=== PATIENT | male | born 1995 | race Two or more races ===

== ENCOUNTER 2021-02-05 13:19 | Emergency (ER) | payer MEDICAID, OTHER ==
[~2021-02-05] VITALS: Ht 172.7 cm; Wt 102.1 kg
[2021-02-05 14:37] VITALS: BP 135/76
== END 2021-02-05 15:31 | disposition home or self-care (01) ==
LOC: ER 13:19
DX: S61.411A Laceration without foreign body of right hand, initial encounter (principal); W54.0XXA Bitten by dog, initial encounter; Y93.89 Activity, other specified; Y92.89 Other specified places as the place of occurrence of the external cause; Y99.8 Other external cause status
CPT/HCPCS: 12001; 73130

== ENCOUNTER 2021-06-18 12:52 | Emergency (ER) | payer MEDICAID ==
[~2021-06-18] VITALS: Ht 172.7 cm; Wt 102.1 kg
[2021-06-18 14:28] LABS: Basophils # (auto) 0 10 ^3/uL (0-0.2); Basophils % (auto) 0.3 % (0.0-2.0); Eosinophils # (auto) 0.1 10 ^3/uL (0-0.8); Eosinophils % (auto) 0.7 % (0.0-7.0); Hematocrit 45.3 % (41.0-53.0); Hemoglobin 15.6 g/dL (13.5-17.5); Lymphocytes # (auto) 1.7 10 ^3/uL (0.4-5.4); Lymphocytes % (auto) 12.3 % (10.0-50.0); Mean Corpuscular Hemoglobin 30.6 pg (28.0-32.0); Mean Corpuscular Hgb Conc. 34.5 g/dL (32.0-36.0); Mean Corpuscular Volume 88.5 fL (80.0-100.0); Monocytes # (auto) 0.5 10 ^3/uL (0-1.3); Monocytes % (auto) 3.5 % (0.0-12.0); Neutrophils # (auto) 11.6 10 ^3/uL (1.6-8.6); Neutrophils % (auto) 83.2 % (37.0-80.0); Nucleated Red Blood Cells % 0.1 %; Red Blood Cells 5.11 10^6/uL (4.5-5.90); Red Cell Distribution Width 13.2 % (11.8-14.3); White Blood Cell 13.9 10^3/uL (4.4-10.8)
[2021-06-18 14:56] LABS: Albumin 4.5 g/dL (3.4-5.0); Calcium 9.7 mg/dL (8.5-10.1); Potassium 3.6 mmol/L (3.5-5.1)
[2021-06-18 15:01] LABS: BUN/Creatinine Ratio 8.1; Bilirubin, Total 0.7 mg/dL (0.2-1.0); Total Protein 8.7 g/dL (6.4-8.2)
[2021-06-18] MEDS ORDERED: cefTRIAXone 1GM/50ML D5W 50 ML IV ONE ×2 (16:15→17:09)
[2021-06-18] MEDS ORDERED: KETOROLAC TROMETH 30 MG/ML 1ML VIAL IV ONE (16:15)
[2021-06-18] MEDS ORDERED: SODIUM CHLORIDE 0.9% 1,000 ML IV ONE ×2 (16:15)
[2021-06-18 16:45] VITALS: BP 133/71
[2021-06-18 16:50] LABS: Alcohol, Urine < 3.0 mg/dL (0-10); Amphetamine Screen, Urine NEGATIVE (NEGATIVE); Barbiturate Scree,Urine NEGATIVE (NEGATIVE); Benzodiazephine Screen, Urine NEGATIVE (NEGATIVE); Cannabinoid Screen, Urine POSITIVE (NEGATIVE); Cocaine Screen, Urine NEGATIVE (NEGATIVE); Opiate Scree,Urine NEGATIVE (NEGATIVE); Phencyclidine Screen, Urine NEGATIVE (NEGATIVE)
[2021-06-18] MEDS ORDERED: KETOROLAC TROMETH 30 MG/ML 1ML VIAL ONE (17:14)
[2021-06-18] MEDS ORDERED: METR500T PO (18:59)
[2021-06-18] MEDS ORDERED: CEPH-509 PO (18:59)
== END 2021-06-18 19:16 | disposition home or self-care (01) ==
LOC: ER 12:52
DX: R10.84 Generalized abdominal pain (principal); R11.2 Nausea with vomiting, unspecified
CPT/HCPCS: 36415; 74176; 76870; 80053; 80307; 83690; 85025; 96361; 96365; 96375; 99284; J0696; J1885; J7030

== ENCOUNTER 2023-06-19 02:14 | Emergency (ER) | payer MEDICAID ==
[~2023-06-19] VITALS: Ht 172.7 cm; Wt 92.0 kg
[~2023-06-19 02:14] MED LIST: DICY10CA PO; LEVO500T31 PO; METO-281 PO; METR500T PO; VERA240C2 PO
[2023-06-19] MEDS: SODIUM CHLORIDE 0.9% 1,000 ML IV ONE (03:04)
[2023-06-19] MEDS: HYDROmorphone HCL 2 MG/ML VL/or syr IV ONE (03:07)
[2023-06-19] MEDS: METOCLOPRAMIDE HCL 5MG/ml INJ 2ml VIAL IV ONE (03:09)
[2023-06-19 03:11] VITALS: PULSE 106; RESP 15; O2SAT 99
== END 2023-06-19 04:07 | disposition home or self-care (01) ==
LOC: ER 02:14
DX: K29.00 Acute gastritis without bleeding (principal); F15.90 Other stimulant use, unspecified, uncomplicated; Z98.890 Other specified postprocedural states; Z79.899 Other long term (current) drug therapy
CPT/HCPCS: 96361; 96374; 96375; 99284; J1170; J2765; J7030

== ENCOUNTER 2023-07-17 23:26 | Emergency (ER) | payer MEDICAID ==
[~2023-07-17] VITALS: Ht 172.7 cm; Wt 90.9 kg
[2023-07-18 00:19] LABS: Basophils # (auto) 0 10 ^3/uL (0-0.2); Basophils % (auto) 0.2 % (0.0-2.0); Eosinophils # (auto) 0 10 ^3/uL (0-0.8); Eosinophils % (auto) 0.2 % (0.0-7.0); Hematocrit 44.9 % (41.0-53.0); Hemoglobin 15.4 g/dL (13.5-17.5); Lymphocytes # (auto) 1.6 10 ^3/uL (0.4-5.4); Lymphocytes % (auto) 10.2 % (10.0-50.0); Mean Corpuscular Hemoglobin 30.9 pg (28.0-32.0); Mean Corpuscular Hgb Conc. 34.3 g/dL (32.0-36.0); Monocytes # (auto) 0.4 10 ^3/uL (0-1.3); Monocytes % (auto) 2.2 % (0.0-12.0); Neutrophils # (auto) 13.9 10 ^3/uL (1.6-8.6); Neutrophils % (auto) 87.2 % (37.0-80.0); Nucleated Red Blood Cells % 0.2 %; Red Blood Cells 4.99 10^6/uL (4.5-5.90); Red Cell Distribution Width 13.7 % (11.8-14.3); White Blood Cell 15.9 10^3/uL (4.4-10.8)
[2023-07-18 00:27] LABS: Alanine Aminotransferase 30 U/L (7-40); Albumin 5.2 g/dL (3.2-4.8); Alkaline Phosphatase 86 U/L (46-116); Anion Gap 11 (5-15); Aspartate Aminotransferase 27 U/L (13-40); BUN/Creatinine Ratio 10.4 (10.0-20.0); Bilirubin, Total 1.2 mg/dL (0.2-1.0); Blood Urea Nitrogen 8 mg/dL (9-23); Calcium 10.2 mg/dL (8.7-10.4); Carbon Dioxide 22 mmol/L (20-30); Chloride 106 mmol/L (98-107); Glucose 123 mg/dL (74-106); Lipase 40 U/L (12-53); Sodium 139 mmol/L (136-145); Total Protein 8.4 g/dL (5.7-8.2)
[2023-07-18] MEDS ORDERED: OMEP-335 PO (01:16)
[2023-07-18] MEDS ORDERED: ZOFR4T PO (01:16)
[2023-07-18] MEDS: MORPHINE SULFATE 4 MG/ML SYR/VIAL IM ONE (01:26)
[2023-07-18] MEDS: ONDANSETRON HCL 4 MG/2 ML VIAL IM ONE (01:26)
[2023-07-18] MEDS: POTASSIUM CHL 20 Meq TABLET PO ONE (01:27)
[2023-07-18 01:37] VITALS: BP 142/83; PULSE 108; RESP 18; TEMP 98.9; O2SAT 99
== END 2023-07-18 01:37 | disposition home or self-care (01) ==
LOC: ER 23:26
DX: K29.70 Gastritis, unspecified, without bleeding (principal); F12.10 Cannabis abuse, uncomplicated; Z90.49 Acquired absence of other specified parts of digestive tract
CPT/HCPCS: 36415; 74176; 80053; 83690; 85025; 96372; 99285; J2270; J2405

== ENCOUNTER 2024-06-12 15:54 | Inpatient (IN) | payer MEDICAID ==
[~2024-06-12] VITALS: Ht 172.7 cm; Wt 109.0 kg
[~2024-06-12 15:54] MED LIST changes: +ACET300T51 PO; +BUPR1DIS TD; +LIDO1PAD55 TOP; +OMEP-335 PO; +ZOFR4T PO
--- NOTE | 2024-06-12 16:05 | ED.PDOC ---
History of Present Illness HPI Comments 29-year-old male brought by paramedics from home because of abdominal pain nausea vomiting for the past few days. He has a history of similar symptoms in the past. Last episode was two months ago. Patient did have gallbladder surgery five years ago ever since then he has been having these symptoms. He has had endoscope with no definitive diagnosis. He does have a history of scoliosis for which he takes pain medication. Denies use of drugs. Denies any other symptoms. Time Seen by MD: 16:00 Primary Care Provider: ARLEEN Reviewed Notes: Nurses Notes, Medications, Allergies Allergies: Coded Allergies: NO KNOWN ALLERGIES (Unverified , 02/05/21) Home Meds Active Scripts Ondansetron Odt 4MG Tab (ZOFRAN PO) 4 Mg Tb, 4 MG PO Q6HPRN PRN, #30 TAB ODT TAB-DISSOLVE IN MOUTH, THEN SWALLOW Prov:ZACHARY SANTANA PAC 07/18/23 Omeprazole (Omeprazole) 20 Mg Tab, 20 MG PO DAILY, #30 TAB Prov:ZACHARY SANTANA PAC 07/18/23 Dicyclomine Hcl (BENTYL CAPSULE) 10 Mg Cp, 2 CAP PO Q6HPRN PRN, #30 CAP 3 Refills Prov:TRE MERRITT DO 06/18/23 Metoclopramide Hcl (Reglan) 10 Mg Tab, 10 MG PO Q6HPRN PRN, #20 TAB Prov:TRE MERRITT DO 06/18/23 Levofloxacin (Levaquin) 500 Mg Tab, 500 MG PO DAILY for 14 Days, #14 TAB Prov:LASHONDA PLUMMER MD 08/11/22 Metronidazole (Flagyl) 500 Mg Tab, 500 MG PO TID for 14 Days, #42 TAB Prov:LASHONDA PLUMMER MD 08/11/22 Reported Medications Verapamil Hcl (Verapamil Hcl Er) 240 Mg Cap, 1 CAP PO DAILY 08/10/22 Information Source: Patient, Emergency Med Personnel Mode of Arrival: EMS Severity: Moderate Timing: Days Duration: Since onset Past Medical History PAST MEDICAL HISTORY: Denies Surgical History: Cholecystectomy Family History Family History: Reviewed,noncontributory to illness Social History Smoker: Non-Smoker Alcohol: Denies ETOH Use Drugs: Marijuana Lives In: Home Constitutional: denies: chills, diaphoresis, fatigue, fever, malaise, sweats, weakness, others EENTM: denies: blurred vision, double vision, ear bleeding, ear discharge, ear drainage, ear pain, ear ringing, eye pain, eye redness, hearing loss, mouth pain, mouth swelling, nasal discharge, nose bleeding, nose congestion, nose pain, photophobia, tearing, throat pain, throat swelling, voice changes, others Respiratory: denies: cough, hemoptysis, orthopnea, SOB at rest, shortness of breath, SOB with excertion, stridor, wheezing, others Cardiovascular: denies: chest pain, dizzy spells, diaphoresis, Dyspnea on exertion, edema, irregular heart beat, left arm pain, lightheadedness, palpitations, PND, syncope, others Gastrointestinal: reports: abdominal pain, nausea, vomiting; denies: abdomen distended, blood streaked bowels, constipated, diarrhea, dysphagia, difficulty swallowing, hematemesis, melena, poor appetite, poor fluid intake, rectal bleeding, rectal pain, others Genitourinary: denies: burning, dysuria, flank pain, frequency, hematuria, incontinence, penile discharge, penile sore, pain, testicle pain, testicle swelling, urgency, others Neurological: denies: dizziness, fainting, headache, left sided numbness, left sided weakness, numbness, paresthesia, pre-existing deficit, right sided numbness, right sided weakness, seizure, speech problems, tingling, tremors, weakness, others Musculoskeletal: denies: back pain, gout, joint pain, joint swelling, muscle pain, muscle stiffness, neck pain, others Integumetry: denies: bruises, change in color, change in hair/nails, dryness, laceration, lesions, lumps, rash, wounds, others Allergic/Immunocompromised: denies: Difficulty Healing, Frequent Infections, Hives, Itching, others Hematologic/Lymphatic: denies: anemia, blood clots, easy bleeding, easy bruising, swollen glands, others Endocrine: denies: excessive hunger, excessive sweating, excessive thirst, excessive urination, flushing, intolerance to cold, intolerance to heat, unexplained weight gain, unexplained weight loss, others Psychiatric: denies: anxiety, bipolar disorder, depression, hopeless, panic disorder, schizophrenia, sleepless, suicidal, others Physical Exam General Appearance: Moderate Distress HEENT: Normal ENT Inspection, Pharynx Normal, TMs Normal Neck: Full Range of Motion, Non-Tender, Normal, Normal Inspection Respiratory: Chest Non-Tender, Lungs Clear, No Accessory Muscle Use, No Respiratory Distress, Normal Breath Sounds Cardiovascular: No Edema, No JVD, No Murmur, No Gallop, Normal Peripheral Pulses, Regular Rate/Rhythm Breast Exam: Deferred Gastrointestinal: No Organomegaly, Non Tender, No Pulsatile Mass, Normal Bowel Sounds, Soft Genitalia: Deferred Pelvic: Deferred Rectal: Deferred Extremities: No calf tenderness, Normal capillary refill, Normal inspection, Normal range of motion, Non-tender, No pedal edema Musculoskeletal : Apperance: Normal Neurologic: Alert, cripple chaser II-XII nml as Tested, No Motor Deficits, Normal Affect, Normal Mood, No Sensory Deficits Cerebellar Function: NOT DONE Reflexes: NOT DONE Skin: Dry, Normal Color, Warm Peripheral Pulses: 3+ Radial (R), 3+ Radial (L) Lymphatic: No Adenopathy Was a procedure done? Was a procedure done?: No Differential Dx Considerations may include: Gastritis Electrolyte imbalance X-Ray, Labs, Meds, VS Vital Signs Date Time Temp Pulse Resp B/P (MAP) Pulse Ox O2 Delivery O2 Flow Rate FiO2 06/12/24 16:09 98.6 110 20 119/78 (92) 99 98.6 Lab Test 06/12/24 16:29 Range/Units White Blood Count 15.9 H 4.4-10.8 10^3/uL Red Blood Count 5.89 4.5-5.90 10^6/uL Hemoglobin 17.8 H 13.5-17.5 g/dL Hematocrit 51.8 41.0-53.0 % Mean Corpuscular Volume 87.8 80.0-100.0 fL Mean Corpuscular Hemoglobin 30.2 28.0-32.0 pg Mean Corpuscular Hemoglobin Concent 34.4 32.0-36.0 g/dL Red Cell Distribution Width 13.6 11.8-14.3 % Platelet Count 323 140-450 10^3/uL Mean Platelet Volume 10.2 6.9-10.8 fL Neutrophils (%) (Auto) 79.5 37.0-80.0 % Lymphocytes (%) (Auto) 14.7 10.0-50.0 % Monocytes (%) (Auto) 5.1 0.0-12.0 % Eosinophils (%) (Auto) 0.1 0.0-7.0 % Basophils (%) (Auto) 0.6 0.0-2.0 % Neutrophils # (Auto) 12.6 H 1.6-8.6 10 ^3/uL Lymphocytes # (Auto) 2.3 0.4-5.4 10 ^3/uL Monocytes # (Auto) 0.8 0-1.3 10 ^3/uL Eosinophils # (Auto) 0 0-0.8 10 ^3/uL Basophils # (Auto) 0.1 0-0.2 10 ^3/uL Nucleated Red Blood Cells 0.4 % Sodium Level 143 136-145 mmol/L Potassium Level 3.5 3.5-5.1 mmol/L Chloride Level 107 98-107 mmol/L Carbon Dioxide Level 19 L 20-31 mmol/L Anion Gap 17 H 5-15 Blood Urea Nitrogen 11 9-23 mg/dL Creatinine 1.35 H 0.700-1.30 mg/dL Glomerular Filtration Rate Calc 74 >90 mL/min BUN/Creatinine Ratio 8.1 L 10.0-20.0 Serum Glucose 159 H 74-106 mg/dL Calcium Level 11.4 H 8.7-10.4 mg/dL Patient alert. Complaining of abdominal pain nausea vomiting. Vitals stable. Answering questions. Continues to have vomiting. Establish intravenous access. Establish intravenous access. Was given fluids. Was given morphine. Was given Zofran. Reviewed his previous visit. Explained to the patient. Continue cardiac monitoring. Time of 1ST Reevaluation: 16:03 Reevaluation 1ST: Unchanged Patient Education/Counseling: Diagnosis, Treatment, Prognosis Family Education/Counseling: No Family Present Departure 1 Departure Time of Disposition: 16:05 Impression: Primary Impression: Intractable nausea and vomiting Additional Impressions: Hypercalcemia Uncontrolled diabetes mellitus Qualified Codes: E13.65 - Other specified diabetes mellitus with hyperglycemia Gastritis Qualified Codes: K29.00 - Acute gastritis without bleeding Disposition: ADMITTED INPATIENT Admit to: Med Surg Condition: Guarded Critical Care Note Critical Care Time?: No Stability Stability form required: No Heart Score Heart Score: Heart Score Response (Comments) Value History N/A 0 EKG N/A 0 Age N/A 0 Risk Factors N/A 0 Troponin N/A 0 Total 0 JAM SCOTT MD Jun 12, 2024 16:05
[2024-06-12 16:43] LABS: Basophils # (auto) 0.1 10 ^3/uL (0-0.2); Basophils % (auto) 0.6 % (0.0-2.0); Eosinophils # (auto) 0 10 ^3/uL (0-0.8); Eosinophils % (auto) 0.1 % (0.0-7.0); Hematocrit 51.8 % (41.0-53.0); Hemoglobin 17.8 g/dL (13.5-17.5); Lymphocytes # (auto) 2.3 10 ^3/uL (0.4-5.4); Lymphocytes % (auto) 14.7 % (10.0-50.0); Mean Corpuscular Hemoglobin 30.2 pg (28.0-32.0); Mean Corpuscular Hgb Conc. 34.4 g/dL (32.0-36.0); Mean Corpuscular Volume 87.8 fL (80.0-100.0); Monocytes # (auto) 0.8 10 ^3/uL (0-1.3); Monocytes % (auto) 5.1 % (0.0-12.0); Neutrophils # (auto) 12.6 10 ^3/uL (1.6-8.6); Neutrophils % (auto) 79.5 % (37.0-80.0); Nucleated Red Blood Cells % 0.4 %; Platelet Count (auto) 323 10^3/uL (140-450); Red Blood Cells 5.89 10^6/uL (4.5-5.90); Red Cell Distribution Width 13.6 % (11.8-14.3); White Blood Cell 15.9 10^3/uL (4.4-10.8)
[2024-06-12 16:56] LABS: Chloride 107 mmol/L (98-107); Sodium 143 mmol/L (136-145)
[2024-06-12 17:02] LABS: Potassium 3.5 mmol/L (3.5-5.1)
[2024-06-12 17:03] LABS: Anion Gap 17 (5-15); BUN/Creatinine Ratio 8.1 (10.0-20.0); Blood Urea Nitrogen 11 mg/dL (9-23); Calcium 11.4 mg/dL (8.7-10.4); Carbon Dioxide 19 mmol/L (20-31); Glucose 159 mg/dL (74-106)
[2024-06-12 17:20] VITALS: PULSE 122; RESP 20; O2SAT 97
[2024-06-12] MEDS: PANTOPRAZOLE 40 MG/10 ML VIAL INJ IV ONE (17:33)
[2024-06-12] MEDS: MORPHINE SULFATE 4 MG/ML SYR/VIAL IV ONE (17:34)
[2024-06-12] MEDS: ONDANSETRON HCL 4 MG/2 ML VIAL IV ONE (17:34)
[2024-06-12] MEDS: SODIUM CHLORIDE 0.9% 1,000 ML IV ONE ×3 (17:48→22:30)
[2024-06-12] MEDS: cefTRIAXone 1GM/50ML D5W 50 ML IV ONE ×2 (17:48→22:40)
[2024-06-12] MEDS: metroNIDAZOLE 500MG/100ML 100 ML IV ONE ×2 (18:23→23:10)
[2024-06-12] MEDS: SODIUM CHLORIDE 0.9% 1,000 ML IVB ONE (18:28)
--- NOTE | 2024-06-12 18:35 | DVH ---
Exam: CT CT AB PEL WO CON-NO ORAL OR IV History: gastritis Comparison Study: None available at time of dictation. TECHNIQUE: Multidetector CT of the abdomen was performed from lung bases to pubic symphysis. Imaging was performed without IV contrast. Axial, coronal and sagittal multiplanar reformats were obtained fr om the axial data set by the technologist. Radiation Dose Information: CT Dose: CTDI volume is 22.59 mGy. Dose-length product is 1164.33 mGy*cm FINDINGS: Evaluation of solid organs is limited due to lack of intravenous contrast use. Findings: Lung Bases: No acute or significant lung base finding. Normal heart size. No pleural or pericardial effusion. Liver: The liver is normal in size. No focal lesions. Gallbladder and Biliary Tree: Gallbladder has been surgically removed. Spleen: Unremarkable Pancreas: The pancreas is grossly normal in appearance. Adrenal Glands: Unremarkable Kidneys: Kidneys are grossly normal without calculi or hydronephrosis. Bladder: Grossly unremarkable for degree of distention. Bowel: The stomach is grossly normal in appearance. Small bowel and colon are normal in caliber and d istribution. The appendix is not visualized; however, no secondary findings of acute appendicitis id entified. Ascites: Absent Lymphadenopathy: No mesenteric, retroperitoneal or periportal lymphadenopathy. Abdominal Wall and Mesentery: Unremarkable. Vasculature: The visualized abdominal aorta is normal in size and caliber. Evaluation of abdominal a nd pelvic vessels is limited due to lack of intravenous contrast. Pelvic Organs: Unremarkable Musculoskeletal: No aggressive focal bony lesions, acute fractures or dislocation. Soft tissues: Unremarkable IMPRESSION: 1. Fluid in the stomach with no indication of gastric wall thickening. 2. No findings of bowel obstruction 3. Gallbladder has been surgically removed. 4. No nephrolithiasis or hydronephrosis. Radiation optimization: All CT scans at this facility use at least one of these dose optimization te chniques: automated exposure control mA and/or kV adjustment per patient size (includes targeted exa ms where dose is matched to clinical indication) or iterative reconstruction.
[2024-06-12] MEDS: ACETAMINOPHEN IV 1000 MG/100ML (10MG/ML) IV ONE (20:08)
[2024-06-12] MEDS: SODIUM CHLORIDE 0.9% 3,000 ML IV ONE (20:08)
[2024-06-12] MEDS ORDERED: HYDROcodone-ACET 5/325MG TAB PO PRN (22:00)
[2024-06-12] MEDS ORDERED: MORPHINE SULFATE INJ 2 MG/ml SYRG IV PRN (22:00)
[2024-06-12] MEDS ORDERED: ACETAMINOPHEN 325 MG TAB PO PRN (22:00)
--- NOTE | 2024-06-12 22:16 | DVHHPRES ---
History of Present Illness Resident Creating Document: SOHEILA ALAMO RESDIENT History of Present Illness This is a 29-year-old male with past medical history of cholelithiasis (status post cholecystectomy, 6 years back) came to the hospital due to abdominal pain. Per patient he has intermitted abdominal pain since cholecystectomy every few months, worsened by taking yogurt. Three days back after taking yogurt patient developed epigastric pain, 7/10, constant and stabbing in nature. He also reports nausea, vomiting, bloating, diarrhea and fever. He denies chest pain, dysuria, any recent sick contacts or unusual food intake. PMHx: Cholelithiasis status post cholecystectomy, scoliosis and cluster headache PSHx: Cholecystectomy Family history: Noncontributory Social history: Denies smoking or any other drug use. Home medication: Sucralfate, lidocaine patch, codeine, Tylenol and verapamil Allergic history: No known allergy Review of Systems Review of Systems General: Reports fever HEENT: No headaches, visiual changes, hearing loss, tinnitus, nasal congestion and discharge, and sore throat. Cardiovascular: Denies chest pain, palpitations, dyspnea on exertion, orthopnea, or claudication. Respiratory: No cough, and wheezing. Gastrointestinal: Reports nausea, vomiting, and abdominal pain Genitourinary: No dysuria, hematuria, discharge, frequency, urgency, nocturia, incontinence, and urinary retention. Endocrine: No heat or cold intolerance, polydipsia, polyuria, and polyphagia. Neurological: No dizziness, extremity weakness and numbness, tremors, gait disturbance, seizures, and memory impairment. Psychiatric: Denies depression, anxiety,or insomnia. Musculoskeletal: Denies neck pain, stiffness and swelling, back pain, muscle weakness, joint pain, stiffness, swelling, or limited range of motion. Skin: No rashes, itching, skin lesion, changes in hair, nail, skin texture and breast. Hematologic/Lymphatic: Denies easy bruising, bleeding tendencies, or lymph node enlargement. Allergies: Coded Allergies: NO KNOWN ALLERGIES (Unverified , 02/05/21) Medications Current Medications Medications Dose Ordered Sig/Makeda Route Start Time Stop Time Status Last Admin Dose Admin Acetaminophen 650 mg Q6HP PRN PO 06/12/24 22:00 UNV Acetaminophen/ Hydrocodone Bitart 1 tab Q4HP PRN PO 06/12/24 22:00 UNV Ondansetron HCl 4 mg Q4HP PRN IV 06/12/24 22:00 UNV Morphine Sulfate 2 mg Q4HPRN PRN IV 06/12/24 22:00 UNV Enoxaparin Sodium 40 mg DAILY SC 06/13/24 10:00 UNV Sucralfate 1 gm TID@0600,1130,2200 PO 06/12/24 22:00 UNV Metronidazole 100 ml @ 100 mls/hr Q8HR IV 06/12/24 22:00 UNV Ceftriaxone Sodium 50 ml @ 100 mls/hr DAILY@09 IV 06/13/24 09:00 UNV Exam Vital Signs Vital Signs Date Time Temp Pulse Resp B/P (MAP) Pulse Ox O2 Delivery O2 Flow Rate FiO2 06/12/24 22:00 98.8 97 18 144/84 (104) 98 98.8 06/12/24 20:10 Room Air* 0 21 Exam General Appearance: Alert, Oriented X3, Cooperative, No acute distress HEENT: Atraumatic, PERRLA, EOMI, Mucous membrane moist/pink Respiratory: Clear to auscultation, Normal air movement Cardiovascular: Regular rate, Normal S1, Normal S2, No murmurs, no chest wall tenderness Abdominal: Mild abdominal tenderness Extremities: No clubbing, No cyanosis, No edema, Normal pulses, No tenderness/ swelling Skin: No rashes, No breakdown, No significant lesion Neuro: Normal gait, Normal speech, Strength at 5/5 X4 ext, Normal tone, Sensation intact, Cranial nerves 3-12 NL, Reflexes 2+ Psych/Mental Status: Mental status NL, Mood NL Labs/Xrays Labs Test 06/12/24 19:40 06/12/24 16:29 Range/Units Lactic Acid Level 1.9 0.4-2.0 mmol/L White Blood Count 15.9 H 4.4-10.8 10^3/uL Red Blood Count 5.89 4.5-5.90 10^6/uL Hemoglobin 17.8 H 13.5-17.5 g/dL Hematocrit 51.8 41.0-53.0 % Mean Corpuscular Volume 87.8 80.0-100.0 fL Mean Corpuscular Hemoglobin 30.2 28.0-32.0 pg Mean Corpuscular Hemoglobin Concent 34.4 32.0-36.0 g/dL Red Cell Distribution Width 13.6 11.8-14.3 % Platelet Count 323 140-450 10^3/uL Mean Platelet Volume 10.2 6.9-10.8 fL Neutrophils (%) (Auto) 79.5 37.0-80.0 % Lymphocytes (%) (Auto) 14.7 10.0-50.0 % Monocytes (%) (Auto) 5.1 0.0-12.0 % Eosinophils (%) (Auto) 0.1 0.0-7.0 % Basophils (%) (Auto) 0.6 0.0-2.0 % Neutrophils # (Auto) 12.6 H 1.6-8.6 10 ^3/uL Lymphocytes # (Auto) 2.3 0.4-5.4 10 ^3/uL Monocytes # (Auto) 0.8 0-1.3 10 ^3/uL Eosinophils # (Auto) 0 0-0.8 10 ^3/uL Basophils # (Auto) 0.1 0-0.2 10 ^3/uL Nucleated Red Blood Cells 0.4 % Sodium Level 143 136-145 mmol/L Potassium Level 3.5 3.5-5.1 mmol/L Chloride Level 107 98-107 mmol/L Carbon Dioxide Level 19 L 20-31 mmol/L Anion Gap 17 H 5-15 Blood Urea Nitrogen 11 9-23 mg/dL Creatinine 1.35 H 0.700-1.30 mg/dL Glomerular Filtration Rate Calc 74 >90 mL/min BUN/Creatinine Ratio 8.1 L 10.0-20.0 Serum Glucose 159 H 74-106 mg/dL Calcium Level 11.4 H 8.7-10.4 mg/dL Assessment/Plan Assessment/Plan Abdominal pain, likely due to post cholecystectomy syndrome/lactose intolerance/hypercalcemia SIRS positive NSTEMI, likely type [address] scan shows post cholecystectomy changes NPO Pain control IV fluid LATOSHA, likely VMN Hypercalcemia, likely due to hyperparathyroidism Hyperparathyroidism, likely primary IV fluid DIET: NPO DVT PROPHYLAXIS: Lovenox GI PROPHYLAXIS:: Protonix CODE STATUS: Goal of care discussed for more than 17 minutes, full code DISPOSITION: Med/surge Patient's status and plan discussed with the patient. Case discussed with Dr. Adames. Plan discussed with: Patient, Other (RN) My Orders Orders - TARAS ALAMOCATHERINE RESDIENT Procedure Category Date Status Time Admit ADMIT 06/12/24 Transmitted 21:55 Code Status CODE 06/12/24 Transmitted 21:55 Vital Signs MARY 06/12/24 In Process 21:55 Review Orders With MARY 06/12/24 In Process Adm. 21:55 Acetaminophen Tablet PHA 06/12/24 Logged (Tylenol Tablet) 22:00 Notify Of Changes [facility] 06/12/24 In Process From Base 21:55 Advance Directive MARY 06/12/24 In Process 21:55 Urinalysis LAB 06/12/24 Logged 21:55 Lipid Panel LAB 06/12/24 Logged 21:55 Patient Condition ORDERS 06/12/24 Transmitted 21:55 Allergies MARY 06/12/24 In Process 21:55 Hydrocodone-Acet PHA 06/12/24 Logged 5/325mg Tab ([place] 22:00 Ondansetron Hcl PHA 06/12/24 Logged (Zofran) 22:00 Hemoglobin A1c LAB 06/12/24 Logged 21:55 Morphine Sulfate PHA 06/12/24 Logged Injection 22:00 Enoxaparin Sodium PHA 06/13/24 Logged (Lovenox) 10:00 Stat Ekg For Chest [facility] 06/12/24 In Process Pain 21:55 Notify Of Changes [facility] 06/12/24 In Process From Base 21:55 Hepatic Panel LAB 06/12/24 Logged 21:55 Hiv 1&2 Antibody LAB 06/12/24 Logged 21:55 Parathyroid Hormone LAB 06/12/24 Logged Intact 21:55 Vitamin D, 25-Hydroxy LAB 06/12/24 Logged 21:55 Vitamin B12 LAB 06/12/24 Logged 21:55 Urine Sodium LAB 06/12/24 Logged 21:55 Urine LAB 06/12/24 Logged Protein/Creatinine Urine Creatinine LAB 06/12/24 Logged 21:55 Drug Screen LAB 06/12/24 Logged 21:55 Stool Bacterial [facility]OGER 06/12/24 Logged Culture 21:55 Stool Wbc LAB 06/12/24 Logged 21:55 Clostridium Difficile [facility]OGER 06/12/24 Logged Toxin 21:55 Comprehensive LAB 06/13/24 Verified Metabolic Panel 04:00 Complete Blood Count LAB 06/13/24 Verified 04:00 PTPTT LAB 3/20/25 Verified 04:00 Sucralfate Susp PHA 06/12/24 Logged (Carafate Susp) 22:00 Sucralfate Susp PHA 06/12/24 Logged (Carafate Susp) 22:00 Metronidazole PHA 06/12/24 Logged 500mg/100ml (Flagyl 22:00 Metronidazole PHA 06/12/24 Logged 500mg/100ml (Flagyl 22:00 Ceftriaxone 1gm/50ml PHA 06/12/24 Logged D5w (Rocephin) 22:00 Ceftriaxone 1gm/50ml PHA 06/13/24 Logged D5w (Rocephin) 09:00 Sodium Chloride 0.9% PHA 06/12/24 Logged 22:00 Sodium Chloride 0.9% PHA 06/12/24 Logged 22:00 Npo Except For MARY 06/12/24 In Process Medications 22:14 Ova & Parasite Exam ROGER 06/12/24 Logged 22:15 Date of Service: Jun 12, 2024 Billing Provider: LASHONDA ADAMES MD Common Visit Codes: [id number] INP/OBS CARE (HIGH) SOHEILA ALAMO RESDIENT Jun 12, 2024 22:16 LASHONDA ADAMES MD Jun 13, 2024 11:07
[2024-06-12] MEDS: SUCRALFATE 1 GM/10 ML ORAL SUSP PO ONE (22:25)
[2024-06-12] MEDS: ONDANSETRON HCL 4 MG/2 ML VIAL IV PRN (22:42)
[2024-06-12 22:54] LABS: Albumin 4.7 g/dL (3.2-4.8); Bilirubin, Total 0.9 mg/dL (0.2-1.0); Total Protein 7.9 g/dL (5.7-8.2)
[2024-06-12 23:05] LABS: Bilirubin, Direct 0.4 mg/dL (<0.3)
[2024-06-13] VITALS (9 sets, daily range): BP systolic 103–148; BP diastolic 55–94; PULSE 74–103; RESP 16–18; TEMP 98.2–99.5; O2SAT 96–98
--- NOTE | 2024-06-13 00:37 | DVH ---
INDICATION: Cholidocolythiasis TECHNIQUE: Multiple real-time sonographic images of the abdomen were obtained. COMPARISON: US ABDOMEN LIMITED on DOS: 08/10/22 FINDINGS: Liver is normal in size and echogenicity measuring approximately 15 cm. No focal lesion is identified . No intrahepatic biliary ductal dilatation noted. Gallbladder has been removed. Common bile duct measures approximately 7 mm proximally, within normal limits post cholecystectomy. Right kidney measures 11.6 cm and demonstrates no abnormality. No hydronephrosis. Pancreas is obscured by overlying bowel gas. No fluid collection noted. IMPRESSION: Cholecystectomy. No definite abnormality identified.
[2024-06-13] MEDS ORDERED: BUPR20DI TD (05:40)
[2024-06-13] MEDS: metroNIDAZOLE 500MG/100ML 100 ML IV SCH (05:47)
[2024-06-13] MEDS: SUCRALFATE 1 GM/10 ML ORAL SUSP PO SCH ×2 (05:54→11:21)
[2024-06-13 07:06] LABS: Basophils # (auto) 0 10 ^3/uL (0-0.2); Basophils % (auto) 0.2 % (0.0-2.0); Eosinophils # (auto) 0 10 ^3/uL (0-0.8); Eosinophils % (auto) 0.2 % (0.0-7.0); Hematocrit 37.2 % (41.0-53.0); Hemoglobin 13.2 g/dL (13.5-17.5); Lymphocytes # (auto) 3.3 10 ^3/uL (0.4-5.4); Lymphocytes % (auto) 21.2 % (10.0-50.0); Mean Corpuscular Hemoglobin 31.2 pg (28.0-32.0); Mean Corpuscular Hgb Conc. 35.4 g/dL (32.0-36.0); Mean Corpuscular Volume 88.4 fL (80.0-100.0); Monocytes # (auto) 1.3 10 ^3/uL (0-1.3); Monocytes % (auto) 8.3 % (0.0-12.0); Neutrophils # (auto) 10.9 10 ^3/uL (1.6-8.6); Neutrophils % (auto) 70.1 % (37.0-80.0); Platelet Count (auto) 215 10^3/uL (140-450); Red Blood Cells 4.21 10^6/uL (4.5-5.90); Red Cell Distribution Width 13.6 % (11.8-14.3); White Blood Cell 15.6 10^3/uL (4.4-10.8)
--- NOTE | 2024-06-13 07:15 | ECG ---
[facility] Test Date: 2024-06-13 Test Time: 00:17:41 Pat Name: LON DONG Department: ER Room: 0206 A Gender: M It Auditor: ER : 1995 Requested By: SOHEILA ALAMO Order Number: [id number] Reading MD: Chris Eid Measurements Intervals Loman Rate: 82 P: 27 ID: [id number] QRS: 89 QRSD: 94 T: -23 QT: 396 QTc: 463 Interpretive Statements Sinus rhythm Nonspecific T abnormalities, inferior leads Electronically Signed On 06-15-2024 17:32:16 PDT by Chris Eid Please click the below link to view image of tracing.
[2024-06-13 07:26] LABS: INR 1.09 (0.9-1.15); Partial Thromboplastin Time 30.4 SEC (24.5-34.5); Prothrombin Time 11.5 sec (9.3-11.8)
[2024-06-13 07:32] LABS: Albumin 4.3 g/dL (3.2-4.8); Alkaline Phosphatase 71 U/L (46-116); Anion Gap 9 (5-15); Aspartate Aminotransferase 37 U/L (13-40); BUN/Creatinine Ratio 10.6 (10.0-20.0); Blood Urea Nitrogen 10 mg/dL (9-23); Calcium 8.9 mg/dL (8.7-10.4); Carbon Dioxide 24 mmol/L (20-31); Total Protein 7.2 g/dL (5.7-8.2)
[2024-06-13 07:33] LABS: Alanine Aminotransferase 65 U/L (7-40); Bilirubin, Total 0.9 mg/dL (0.2-1.0); Chloride 114 mmol/L (98-107); Glucose 108 mg/dL (74-106); Potassium 3.5 mmol/L (3.5-5.1); Sodium 147 mmol/L (136-145)
[2024-06-13 10:22] LABS: Hepatitis B Surface Antigen Negative (Negative); Hepatitis C Antibody Negative (Negative)
[2024-06-13] MEDS: ENOXAPARIN SOD 40 MG/0.4 ML SYRINGE SC SCH (10:22)
[2024-06-13] MEDS: PANTOPRAZOLE 40 MG/10 ML VIAL INJ IV SCH (10:22)
[2024-06-13 11:39] LABS: Hematocrit 42.7 % (41.0-53.0); Hemoglobin 14.6 g/dL (13.5-17.5)
[2024-06-13] MEDS ORDERED: MORPHINE SULFATE INJ 2 MG/ml SYRG IV PRN (12:30)
--- NOTE | 2024-06-13 13:03 | DVHPNRES ---
Progress Note Date Seen: Jun 13, 2024 Resident Creating Document: JHChesterJLISA OmalleyCHINO RESIDENT Medical Necessity Reason Pt with a Central, PICC or Fol: No Subjective Review of Systems Patient is a 29-year-old male with a past medical history of cholecystitis status post cholecystectomy 6 years ago presented to the ED with a chief complaint of intractable vomiting for 3 days prior to presentation. Patient reports that about 3 days ago he had smoothie with yogurt following which he started to have emesis multiple episodes, few episodes associated with blebs of blood and patient reported he is not able to keep anything down. Patient reports that since the cholecystectomy he has had episodes of abdominal pain associated with symptoms of dyspepsia like early satiety and bloating and about 2 years ago he had evaluation done at the [facility] with upper endoscopy and colonoscopy which apparently did not show anything. About 1 year ago patient was prescribed sucralfate which apparently improved the symptoms but he ran out of it. Patient denied fever or chills, diarrhea or constipation. Patient does not report any episode of melena or hematochezia. Past medical history: ? GERD, cluster headaches Past surgical history: Cholecystectomy Social history: Patient denies smoking or any other drug use Home medications: Verapamil for prevention of cluster headaches Review of systems Patient seen and examined at the bedside In the morning patient had 1 episode of emesis followed by epigastric abdominal pain. Reported moderate headache Denies shortness of breath, chest pain, palpitations. Objective vital signs Vital Sign Date Time Temp Pulse Resp B/P (MAP) Pulse Ox O2 Delivery O2 Flow Rate FiO2 06/13/24 08:30 99.0 82 16 103/55 (71) 96 99.0 06/13/24 08:00 Room Air* 0 21 Total Intake and Output 06/12/24 06/12/24 06/13/24 15:00 23:00 07:00 Intake Total 4250 ml 250 ml Output Total 0 ml Balance 4250 ml 250 ml medications Current Medications Medications Dose Ordered Sig/Makeda Route Start Time Stop Time Status Last Admin Dose Admin Acetaminophen 650 mg Q6HP PRN PO 06/12/24 22:00 Ondansetron HCl 4 mg Q4HP PRN IV 06/12/24 22:00 06/13/24 10:22 4 MG Enoxaparin Sodium 40 mg DAILY SC 06/13/24 10:00 06/13/24 10:22 40 MG Sucralfate 1 gm ACHS PO 06/13/24 11:30 06/13/24 11:21 1 GM Pantoprazole Sodium 40 mg BID IV 06/13/24 10:00 06/13/24 10:22 40 MG Ceftriaxone Sodium 50 ml @ 100 mls/hr DAILY@09 IV 06/13/24 20:00 Morphine Sulfate 2 mg Q6HPRN PRN IV 06/13/24 11:15 Morphine Sulfate 2 mg Q6HPRN PRN IV 06/13/24 12:30 UNV Examination Constitution: Patient was alert and oriented to time place and person appears to [id number] distress because of abdominal pain and intractable emesis Gen - no pallor, no icterus, no cyanosis, no clubbing, no LAD, no edema . Skin - Patients skin is warm and dry. HEENT - normocephalic, atraumatic, moist mucous membranes. Neck - full ROM, no LAD Pulmonary - B/L vesicular breath sounds. no crackles , no wheezing, no stridor. cardiovascular - normal S1,S2 heard. no murmurs heard. peripheral pulses normal radial 2+, pedal 2+. GI - soft abdomen with mild diffuse tenderness to palpation. no hepatospleenomegaly. Bowel sounds normoactive Neurological - Bilateral upper extremity strength 5/5, bilateral lower extremity strength 5/5, no facial droop, normal speech, no tremor, no sensory deficiets. laboratory and microbiology Laboratory Tests 06/13/24 11:26 06/13/24 06:39 Test 06/13/24 06:39 Range/Units Serum Glucose 108 H 74-106 mg/dL Problem List/Assessment/Plan Problem List/Assessment/Plan # Acute intractable vomiting # Acute intractable abdominal pain # Dyspepsia # ? hematemesis ? Upper GI bleed # Suspected acute gastroenteritis ?Bacillus Cereus # SIRS positive - CT abdomen pelvis without contrast shows IMPRESSION: 1. Fluid in the stomach with no indication of gastric wall thickening. 2. No findings of bowel obstruction 3. Gallbladder has been surgically removed. - IV fluids for rehydration - ondansetron - ceftriaxone 1 g daily - Protonix 40 mg b.i.d. IV - sucralfate 1 g ACHS # LATOSHA likely hemodynamically mediated due to VMN - given IV fluids - resolved # NSTEMI likely type 2 d/t demand supply mismatch - ECG showed sinus rhythm with no ST segment or T wave abnormalities - continue monitoring Goals of care discussed with the patient for over 23 minutes. Full code Plan discussed with Plan discussed with: Patient My Orders My Orders Orders - ANAYELI CARIAS Procedure Category Date Status Time Sucralfate Susp PHA 06/13/24 In Process (Carafate Susp) 11:30 Pantoprazole PHA 06/13/24 In Process (Protonix) 10:00 Npo Except Ice Chips ORDERS 06/13/24 Transmitted 11:06 Ceftriaxone 1gm/50ml PHA 06/13/24 In Process D5w (Rocephin) 20:00 Morphine Sulfate PHA 06/13/24 In Process Injection 11:15 Morphine Sulfate PHA 06/13/24 Logged Injection 12:30 Dietary Evaluation Review Comments: 1. Consider vit D supplements. 2. If NPO>7 days, and GI not accessible, TPN per pharmacy. 3. Offer a regular diet as tolerated when pt is able to keep food down. Expected Outcomes/Goals: Nutrition support to meet 75% of his energy needs. Improved physical strength. Date of Service: Jun 13, 2024 Billing Provider: KIM ROBLEDO MD Common Visit Codes: [id number] INP/OBS CARE(HIGH) ANAYELI CARIAS RESIDENT Jun 13, 2024 13:03 KIM ROBLEDO MD Jun 13, 2024 15:52
[2024-06-13] MEDS: MORPHINE SULFATE INJ 2 MG/ml SYRG IV PRN (13:29)
[2024-06-13] MEDS ORDERED: cefTRIAXone 1GM/50ML D5W 50 ML IV SCH (21:00)
[2024-06-13] MEDS: cefTRIAXone 1GM/50ML D5W 50 ML IV SCH (21:52)
[2024-06-14] VITALS (7 sets, daily range): BP systolic 104–127; BP diastolic 51–77; PULSE 55–78; RESP 14–18; TEMP 97.9–98.6; O2SAT 94–99
[2024-06-14 07:17] LABS: Basophils # (auto) 0.1 10 ^3/uL (0-0.2); Basophils % (auto) 0.8 % (0.0-2.0); Eosinophils # (auto) 0.1 10 ^3/uL (0-0.8); Eosinophils % (auto) 0.8 % (0.0-7.0); Hematocrit 41.4 % (41.0-53.0); Hemoglobin 14.5 g/dL (13.5-17.5); Lymphocytes # (auto) 3.5 10 ^3/uL (0.4-5.4); Lymphocytes % (auto) 32.3 % (10.0-50.0); Mean Corpuscular Hemoglobin 30.9 pg (28.0-32.0); Mean Corpuscular Volume 88.4 fL (80.0-100.0); Monocytes # (auto) 0.8 10 ^3/uL (0-1.3); Monocytes % (auto) 6.9 % (0.0-12.0); Neutrophils # (auto) 6.5 10 ^3/uL (1.6-8.6); Neutrophils % (auto) 59.2 % (37.0-80.0); Nucleated Red Blood Cells % 0.1 %; Platelet Count (auto) 219 10^3/uL (140-450); Red Blood Cells 4.68 10^6/uL (4.5-5.90); Red Cell Distribution Width 13.2 % (11.8-14.3)
[2024-06-14 07:24] LABS: Potassium 3.5 mmol/L (3.5-5.1); Sodium 145 mmol/L (136-145)
[2024-06-14 07:25] LABS: Anion Gap 9 (5-15); Calcium 9.9 mg/dL (8.7-10.4); Carbon Dioxide 25 mmol/L (20-31)
[2024-06-14 07:30] LABS: BUN/Creatinine Ratio 12.1 (10.0-20.0); Blood Urea Nitrogen 12 mg/dL (9-23); Glucose 95 mg/dL (74-106)
[2024-06-14 07:35] LABS: Chloride 111 mmol/L (98-107)
[2024-06-14] MEDS: CAPSAICIN 0.025% CREAM 60GM TOP ONE (12:27)
[2024-06-14] MEDS: HALOPERIDOL LACTATE 5 MG/ML INJ VIAL IM ONE (12:54)
--- NOTE | 2024-06-14 14:51 | DVHPNRES ---
Progress Note Date Seen: Jun 14, 2024 Resident Creating Document: LISA CARIASCHINO RESIDENT Medical Necessity Reason Pt with a Central, PICC or Fol: No Subjective Review of Systems Patient seen and examined at the bedside Patient reported mild nausea for which haloperidol was given Reported headache has improved Denies shortness of breath, chest pain, palpitations. Objective vital signs Vital Sign Date Time Temp Pulse Resp B/P (MAP) Pulse Ox O2 Delivery O2 Flow Rate FiO2 06/14/24 12:43 98.6 63 18 115/57 (76) 96 98.6 06/14/24 08:00 Room Air* 0 21 Total Intake and Output 06/13/24 06/13/24 06/14/24 15:00 23:00 07:00 Intake Total 50 ml 550 ml Output Total 800 ml 0 ml Balance -750 ml 550 ml medications Current Medications Medications Dose Ordered Sig/Makeda Route Start Time Stop Time Status Last Admin Dose Admin Acetaminophen 650 mg Q6HP PRN PO 06/12/24 22:00 Ondansetron HCl 4 mg Q4HP PRN IV 06/12/24 22:00 06/13/24 10:22 4 MG Enoxaparin Sodium 40 mg DAILY SC 06/13/24 10:00 06/14/24 09:53 40 MG Sucralfate 1 gm ACHS PO 06/13/24 11:30 06/14/24 11:22 1 GM Pantoprazole Sodium 40 mg BID IV 06/13/24 10:00 06/14/24 09:52 40 MG Ceftriaxone Sodium 50 ml @ 100 mls/hr DAILY@09 IV 06/13/24 20:00 06/14/24 09:52 100 MLS/HR Morphine Sulfate 2 mg Q6HPRN PRN IV 06/13/24 11:15 06/13/24 22:10 2 MG Examination Constitution: Patient was alert and oriented to time place and person appears to [id number] distress because of abdominal pain and intractable emesis Gen - no pallor, no icterus, no cyanosis, no clubbing, no LAD, no edema . Skin - Patients skin is warm and dry. HEENT - normocephalic, atraumatic, moist mucous membranes. Neck - full ROM, no LAD Pulmonary - B/L vesicular breath sounds. no crackles , no wheezing, no stridor. cardiovascular - normal S1,S2 heard. no murmurs heard. peripheral pulses normal radial 2+, pedal 2+. GI - soft abdomen with improved tenderness to palpation. no hepatospleenomegaly. Bowel sounds normoactive Neurological - Bilateral upper extremity strength 5/5, bilateral lower extremity strength 5/5, no facial droop, normal speech, no tremor, no sensory deficiets. laboratory and microbiology Laboratory Tests 06/14/24 07:03 Test 06/14/24 07:03 Range/Units Serum Glucose 95 74-106 mg/dL Microbiology Date/Time Source Procedure Growth Status 06/13/24 11:43 Stool Stool Culture - Preliminary Resulted 06/13/24 11:43 Stool Shiga Toxin I & II - Final Resulted 06/13/24 11:43 Stool Clostridium difficile Toxin Assay - Final Resulted 06/12/24 19:50 Blood Blood Culture - Preliminary NO GROWTH AFTER 24 HOURS OF INCUBATION. Resulted Problem List/Assessment/Plan Problem List/Assessment/Plan # Acute intractable vomiting # Acute intractable abdominal pain # Dyspepsia # ? hematemesis ? Upper GI bleed # Suspected acute gastroenteritis ?Bacillus Cereus # SIRS positive - CT abdomen pelvis without contrast shows IMPRESSION: 1. Fluid in the stomach with no indication of gastric wall thickening. 2. No findings of bowel obstruction 3. Gallbladder has been surgically removed. - IV fluids for rehydration - ondansetron - ceftriaxone 1 g daily - Protonix 40 mg b.i.d. IV - sucralfate 1 g ACHS - halodol given for nausea - tolerated clear liquid diet well # LATOSHA likely hemodynamically mediated due to VMN - given IV fluids - resolved # NSTEMI likely type 2 d/t demand supply mismatch - ECG showed sinus rhythm with no ST segment or T wave abnormalities - continue monitoring Goals of care discussed with the patient for over 23 minutes. Full code Plan discussed with Plan discussed with: Patient My Orders My Orders Orders - ANAYELI CARIAS RESIDENT Procedure Category Date Status Time Clear Liq Diet DIET 06/14/24 Transmitted Lunch Dietary Evaluation Review Comments: 1. Consider vit D supplements. 2. If NPO>7 days, and GI not accessible, TPN per pharmacy. 3. Offer a regular diet as tolerated when pt is able to keep food down. Expected Outcomes/Goals: Nutrition support to meet 75% of his energy needs. Improved physical strength. Date of Service: Jun 14, 2024 Billing Provider: KIM ROBLEDO MD Common Visit Codes: [id number] INP/OBS CARE(HIGH) ANAYELI CARIAS RESIDENT Jun 14, 2024 14:51 KIM ROBLEDO MD Jun 14, 2024 15:31
[2024-06-14] MEDS: SODIUM CHLORIDE 0.9% 500 ML IV ONE (16:42)
[2024-06-14 23:11] LABS: Urine Bacteria None Seen /hpf (None Seen)
[2024-06-14 23:29] LABS: Urine Blood Negative /uL (Negative); Urine Clarity Clear (Clear); Urine Color Yellow (Yellow); Urine Mucus FEW (None Seen); Urine Protein, UAD TRACE (Negative); Urine Specific Gravity 1.036 (1.001-1.035); Urine Squamous Epithelial Cell None Seen /hpf (<5); Urine Urobilinogen Normal (Negative); Urine WBC 2 /HPF (0-3)
[2024-06-14 23:33] LABS: Protein, Urine 36.6 mg/dL (1-14)
[2024-06-14 23:44] LABS: Cannabinoid Screen, Urine Pos (NEGATIVE); Opiate Scree,Urine Neg (NEGATIVE); Urine Protein/Creatinine Ratio 0.09
[2024-06-14 23:57] LABS: Amphetamine Screen, Urine Neg (NEGATIVE); Barbiturate Scree,Urine Neg (NEGATIVE); Benzodiazephine Screen, Urine Neg (NEGATIVE); Cocaine Screen, Urine Neg (NEGATIVE); Phencyclidine Screen, Urine Neg (NEGATIVE)
[2024-06-15 01:00] VITALS: BP 118/64; PULSE 60; RESP 20; TEMP 98.1; O2SAT 99
[2024-06-15 05:00] VITALS: BP 122/68; PULSE 64; RESP 18; TEMP 98; O2SAT 97
[2024-06-15 05:48] LABS: Basophils # (auto) 0.1 10 ^3/uL (0-0.2); Basophils % (auto) 0.6 % (0.0-2.0); Eosinophils # (auto) 0.2 10 ^3/uL (0-0.8); Eosinophils % (auto) 2.1 % (0.0-7.0); Hematocrit 40.6 % (41.0-53.0); Hemoglobin 14.5 g/dL (13.5-17.5); Lymphocytes # (auto) 3.6 10 ^3/uL (0.4-5.4); Lymphocytes % (auto) 40.1 % (10.0-50.0); Mean Corpuscular Hemoglobin 31.5 pg (28.0-32.0); Mean Corpuscular Hgb Conc. 35.8 g/dL (32.0-36.0); Monocytes # (auto) 0.6 10 ^3/uL (0-1.3); Monocytes % (auto) 6.8 % (0.0-12.0); Neutrophils # (auto) 4.6 10 ^3/uL (1.6-8.6); Neutrophils % (auto) 50.4 % (37.0-80.0); Nucleated Red Blood Cells % 0.2 %; Platelet Count (auto) 198 10^3/uL (140-450); Red Blood Cells 4.61 10^6/uL (4.5-5.90); Red Cell Distribution Width 12.9 % (11.8-14.3); White Blood Cell 9.1 10^3/uL (4.4-10.8)
[2024-06-15 08:00] VITALS: PULSE 53; RESP 17; O2SAT 96
[2024-06-15 09:00] VITALS: BP 117/65; PULSE 53; RESP 17; TEMP 98.1; O2SAT 96
[2024-06-15 12:41] VITALS: BP 108/57; PULSE 60; RESP 17; TEMP 98.6; O2SAT 97
[2024-06-15] MEDS ORDERED: SUCR1SUS5 PO (13:23)
[2024-06-15] MEDS ORDERED: AUG875T PO (13:23)
[2024-06-15] MEDS ORDERED: ZOFR4T PO (13:23)
[2024-06-15] MEDS ORDERED: PANT40TA2 PO (13:23)
[2024-06-15 17:22] VITALS: BP 107/59; PULSE 60; RESP 17; TEMP 98.1; O2SAT 95
--- NOTE | 2024-06-15 21:54 | DVHDSRES ---
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3) Platelet Count 198 10^3/uL (140-450) Mean Platelet Volume 10.3 fL (6.9-10.8) Neutrophils (%) (Auto) 50.4 % (37.0-80.0) Lymphocytes (%) (Auto) 40.1 % (10.0-50.0) Monocytes (%) (Auto) 6.8 % (0.0-12.0) Eosinophils (%) (Auto) 2.1 % (0.0-7.0) Basophils (%) (Auto) 0.6 % (0.0-2.0) Neutrophils # (Auto) 4.6 10 ^3/uL (1.6-8.6) Lymphocytes # (Auto) 3.6 10 ^3/uL (0.4-5.4) Monocytes # (Auto) 0.6 10 ^3/uL (0-1.3) Eosinophils # (Auto) 0.2 10 ^3/uL (0-0.8) Basophils # (Auto) 0.1 10 ^3/uL (0-0.2) Nucleated Red Blood Cells 0.2 % Urine Color Yellow (Yellow) Urine Clarity Clear (Clear) Urine pH 6.0 (5.0-9.0) Urine Specific [place] 1.036 (1.001-1.035) Urine Protein Trace (Negative) Urine Ketones Negative (Negative) Urine Blood Negative /uL (Negative) Urine Nitrite Negative (Negative) Urine Bilirubin Negative (Negative) Urine Urobilinogen Normal mg/dL (Negative) Urine Leukocyte Esterase Negative /uL (Negative) Urine RBC <1 /hpf (0 - 3) Urine Microscopic WBC 2 /HPF (0-3) Urine Squamous Epithelial Cells None seen /hpf (<5) Urine Bacteria None seen /hpf (None Seen) Urine Mucus Few (None Seen) Urine Creatinine 390.98 mg/dL (30.0-125.0) Urine Protein/Creatinine Ratio 0.09 Urine Sodium 101 mmol/L (40-220) Urine Glucose Normal mg/dL (Normal) Urine Total Protein 36.6 mg/dL (1-14) Urine Opiates Screen Neg (NEGATIVE) Urine Fentanyl Screen Neg (NEGATIVE) Urine Barbiturates Screen Neg (NEGATIVE) Urine Phencyclidine Screen Neg (NEGATIVE) Urine Amphetamines Screen Neg (NEGATIVE) Urine Benzodiazepines Screen Neg (NEGATIVE) Urine Cocaine Screen Neg (NEGATIVE) Urine Cannabinoids Screen Pos (NEGATIVE) Sodium Level 145 mmol/L (136-145) Potassium Level 3.5 mmol/L (3.5-5.1) Chloride Level 111 mmol/L (98-107) Carbon Dioxide Level 25 mmol/L (20-31) Anion Gap 9 (5-15) Blood Urea Nitrogen 12 mg/dL (9-23) Creatinine 0.99 mg/dL (0.700-1.30) Glomerular Filtration Rate Calc 107 mL/min (>90) BUN/Creatinine Ratio 12.1 (10.0-20.0) Serum Glucose 95 mg/dL (74-106) Calcium Level 9.9 mg/dL (8.7-10.4) Stool for White Cells None seen Test 06/13/24 06:39 06/12/24 22:20 06/12/24 19:40 Prothrombin Time 11.5 sec (9.3-11.8) Prothrombin Time INR 1.09 (0.9-1.15) Activated Partial Thromboplast Time 30.4 SEC (24.5-34.5) Total Bilirubin 0.9 mg/dL (0.2-1.0) Aspartate Amino Transferase (AST) 37 U/L (13-40) Alanine Aminotransferase (ALT) 65 U/L (7-40) Alkaline Phosphatase 71 U/L (46-116) Troponin I High Sensitivity 59 ng/L (</=54) Total Protein 7.2 g/dL (5.7-8.2) Albumin 4.3 g/dL (3.2-4.8) Lipase 31 U/L (12-53) Hepatitis B Surface Antigen Negative (Negative) Hepatitis C Antibody Negative (Negative) Hemoglobin A1c 4.9 % A1C (<5.7) Direct Bilirubin 0.4 mg/dL (<0.3) Triglycerides Level 75 mg/dL (< 150) Cholesterol Level 149 mg/dL (< 200) LDL Cholesterol 97 mg/dL (< 100) HDL Cholesterol 36 mg/dL (40-59) Vitamin B12 Level 530 pg/mL (211-911) Vitamin D 25-Hydroxy 31.0 ng/mL (30.0-100) Parathyroid Hormone (Intact) 82.8 pg/mL (18.4-80.1) HIV (1&2) Antibody Negative (Negative) Lactic Acid Level 1.9 mmol/L (0.4-2.0) Other Laboratory Tests 06/15/24 04:47 06/14/24 07:03 Brief Hx & Hospital Course: HPI Patient is a 29-year-old male with a past medical history of cholecystitis status post cholecystectomy 6 years ago presented to the ED with a chief complaint of intractable vomiting for 3 days prior to presentation. Patient reports that about 3 days ago he had smoothie with yogurt following which he started to have emesis multiple episodes, few episodes associated with blebs of blood and patient reported he is not able to keep anything down. Patient reports that since the cholecystectomy he has had episodes of abdominal pain associated with symptoms of dyspepsia like early satiety and bloating and about 2 years ago he had evaluation done at the gastro group with upper endoscopy and colonoscopy which apparently did not show anything. About 1 year ago patient was prescribed sucralfate which apparently improved the symptoms but he ran out of it. Patient denied fever or chills, diarrhea or constipation. Patient does not report any episode of melena or hematochezia. Past medical history: ? GERD, cluster headaches Past surgical history: Cholecystectomy Social history: Patient denies smoking or any other drug use Home medications: Verapamil for prevention of cluster headaches [facility] Hospital course Patient was admitted to the hospital with a chief complaint of intractable vomiting and epigastric abdominal pain. Patient underwent initial CT abdomen pelvis without contrast which did not show any acute no abnormality. Patient was severely dehydrated following which he was given aggressive fluid resuscitation. Patient was reportedly had suddenly and inability to which the intractable nausea vomiting. With a high suspicion of acute gastroenteritis patient was given IV antibiotics and was kept initially following which he was started on clear liquid diet which he tolerated well. Patient was given Protonix and sucralfate which relieved the symptoms of dyspepsia. Patient was gradually advanced to full liquid diet which he tolerated well. Patient was discharged in stable condition to home. Discharge Plan Full liquid diet for a week and then advance diet as tolerated meds: protonix 40mg daily and sucralfate bid, augmentin 875mg bid for 5 days Follow up: with PCP in one week and in the GI outpatient clinic in 2-4 weeks Consults/Reason for consult no consultation Operations or Procedures CT Abdomen Pelvis without contrast IMPRESSION: 1. Fluid in the stomach with no indication of gastric wall thickening. 2. No findings of bowel obstruction 3. Gallbladder has been surgically removed. 4. No nephrolithiasis or hydronephrosis. Condition at Discharge: Good Final Diagnosis/Problems List # Acute intractable vomiting # Acute intractable abdominal pain # Dyspepsia # ? hematemesis ? Upper GI bleed # Suspected acute gastroenteritis ?Bacillus Cereus # LATOSHA likely hemodynamically mediated due to VMN # NSTEMI likely type 2 d/t demand supply mismatch # SIRS positive Discharge Disposition: Home Discharge Instruct/Medications Diet: See Comment Diet comment: Continue with full liquid diet for a week and then transition to soft diet as tolerated Activity: No Restrictions, As Tolerated Follow Up/Referral: Follow up in the d/c clinic in one week Patient to be referred to the GI outpatient clinic from the d/c clinic Medications: as per EMR Discharge Statement: "Patient was advised to return to the ER or call 911 if any headaches, dizziness, shortness of breath, chest pain, abdominal pain, bleeding, fevers, or worsening of medical condition. Patient was counseled about treatment plan, medications, possible side effects, patientverbalized understanding. All questions were answered to the best of my ability. This discharge took greater then 30 minutes in planning, reviewing documentation, counseling the patient, and discussing with other team members." ASSESSMENT ASSESSMENT Assessment # Acute intractable vomiting # Acute intractable abdominal pain # Dyspepsia # ? hematemesis ? Upper GI bleed # Suspected acute gastroenteritis ?Bacillus Cereus # LATOSHA likely hemodynamically mediated due to VMN # NSTEMI likely type 2 d/t demand supply mismatch # SIRS positive Date of Service: Jun 15, 2024 Billing Provider: KIM ROBLEDO MD Common Visit Codes: [id number]/[id number] DISCH DAY >30min ANAYELI CARIAS RESIDENT Jun 15, 2024 21:54 KIM ROBLEDO MD Jun 17, 2024 10:11
== END 2024-06-15 18:21 | disposition home or self-care (01) | DRG 249 ==
LOC: EDBD 15:54 → ER 15:54 → EDUNIT# 15:54 → OVERFLOW 21:55 → CENTRAL 22:14
PROVIDERS: ADMIT Student in an Organized Health Care Education/Training Program; ATTEND Student in an Organized Health Care Education/Training Program
DX: A08.4 Viral intestinal infection, unspecified (principal); N17.0 Acute kidney failure with tubular necrosis; R65.11 Systemic inflammatory response syndrome (SIRS) of non-infectious origin with acute organ dysfunction; E83.52 Hypercalcemia; I21.A1 Myocardial infarction type 2; K92.2 Gastrointestinal hemorrhage, unspecified; E73.9 Lactose intolerance, unspecified; E11.65 Type 2 diabetes mellitus with hyperglycemia; M41.9 Scoliosis, unspecified; Z90.49 Acquired absence of other specified parts of digestive tract; Y83.8 Other surgical procedures as the cause of abnormal reaction of the patient, or of later complication, without mention of misadventure at the time of the procedure; Y82.8 Other medical devices associated with adverse incidents; Z79.899 Other long term (current) drug therapy; K21.9 Gastro-esophageal reflux disease without esophagitis
CPT/HCPCS: 36415; 74176; 76705; 80048; 80053; 80061; 80076; 80307; 81001; 82306; 82570; 82607; 83036; 83605; 83690; 83970; 84156; 84300; 84484; 85014; 85018; 85025; 85048; 85610; 85730; 86703; 86803; 87040; 87045; 87177; 87340; 87427; 87493; 93005; 96361; 96365; 96368; 96375; G0378; J0131; J2405; J2470; J3490

== ENCOUNTER 2024-07-16 20:03 | Inpatient (IN) | payer MEDICAID ==
[~2024-07-16] VITALS: Ht 172.7 cm; Wt 105.0 kg
[~2024-07-16 20:03] MED LIST changes: +AUG875T PO; -DICY10CA PO; -LEVO500T31 PO; -METO-281 PO; -METR500T PO; -OMEP-335 PO; +PANT40TA2 PO; +SUCR1SUS5 PO
[2024-07-16] MEDS: SODIUM CHLORIDE 0.9% 2,000 ML IV ONE (20:30)
--- NOTE | 2024-07-16 21:29 | DVH ---
Exam: CT CT AB PEL WO CON-NO ORAL OR IV History: abd pain n/v/d Comparison Study: 06/12/2024 TECHNIQUE: Multidetector CT of the abdomen and pelvis without IV contrast. Axial, coronal and sagitta l multiplanar reformats were obtained from the axial data set by the technologist. Radiation Dose Information: CT Dose: CTDI volume is 23.84 mGy. Dose-length product is 1430.87 mGy*cm FINDINGS: The lung bases are clear. Partially visualized heart is unremarkable. Status post cholecystectomy. Mild hepatomegaly. Otherwise, liver, spleen, pancreas and adrenal gland s are unremarkable. Kidneys, ureters and urinary bladder unremarkable. Prostate is unremarkable. Stomach is unremarkable. Small bowel loops unremarkable. Appendix is unremarkable. Mild wall thicken ing of the ascending colon. The remainder of the large bowel is unremarkable. No evidence of intraperitoneal free air or free fluid. No evidence of aortic aneurysm. No significant lymphadenopathy. Tiny fat containing umbilical hernia. The soft tissues are unremarkable. Sclerotic focus over the lef t proximal femur and anterior L3 vertebral body which may represent bone islands blastic lesions not excluded. No destructive osseous lesions are noted. IMPRESSION: Mild wall thickening of the ascending colon. Correlate for mild colitis. Mild hepatomegaly.
[2024-07-16 21:38] LABS: Basophils # (auto) 0 10 ^3/uL (0-0.2); Basophils % (auto) 0.1 % (0.0-2.0); Eosinophils # (auto) 0 10 ^3/uL (0-0.8); Hematocrit 49.6 % (41.0-53.0); Lymphocytes # (auto) 1.1 10 ^3/uL (0.4-5.4); Mean Corpuscular Hemoglobin 30.8 pg (28.0-32.0); Mean Corpuscular Hgb Conc. 34.3 g/dL (32.0-36.0); Mean Corpuscular Volume 89.7 fL (80.0-100.0); Monocytes # (auto) 0.3 10 ^3/uL (0-1.3); Neutrophils # (auto) 12.3 10 ^3/uL (1.6-8.6); Neutrophils % (auto) 89.9 % (37.0-80.0); Nucleated Red Blood Cells % 0.1 %; Platelet Count (auto) 302 10^3/uL (140-450); Red Blood Cells 5.53 10^6/uL (4.5-5.90); Red Cell Distribution Width 13.7 % (11.8-14.3); White Blood Cell 13.7 10^3/uL (4.4-10.8)
[2024-07-16 21:54] LABS: Alkaline Phosphatase 95 U/L (46-116); Anion Gap 13 (5-15); Aspartate Aminotransferase 25 U/L (13-40); BUN/Creatinine Ratio 8.3 (10.0-20.0); Carbon Dioxide 22 mmol/L (20-31); Chloride 106 mmol/L (98-107); Lipase 31 U/L (12-53); Potassium 3.9 mmol/L (3.5-5.1); Sodium 141 mmol/L (136-145)
[2024-07-16 21:55] LABS: Bilirubin, Total 0.6 mg/dL (0.2-1.0)
[2024-07-16 21:56] LABS: Alanine Aminotransferase 40 U/L (7-40); Albumin 5.2 g/dL (3.2-4.8); Blood Urea Nitrogen 7 mg/dL (9-23); Calcium 10.6 mg/dL (8.7-10.4); Glucose 128 mg/dL (74-106); Total Protein 8.9 g/dL (5.7-8.2)
[2024-07-17] VITALS (7 sets, daily range): BP systolic 90–119; BP diastolic 50–68; PULSE 56–88; RESP 14–18; TEMP 98.1–98.8; O2SAT 95–98
--- NOTE | 2024-07-17 00:56 | ED.PDOC ---
GI ASSESSMENT HPI Comments 29-year-old male with a history of gastritis brought in by family complaining of epigastric, right-sided and lower abdominal pain, nausea and vomiting since this morning, associated with diarrhea, chills and subjective fever. Patient states he is unable to keep any food or liquids down. He denies any dysuria or respira tory symptoms. He states he has had similar symptoms in the past for which he was prescribed Carafate. He states he is unable to take the Carafate due to the nausea and vomiting. Chief Complaint: Abdominal Pain Time Seen by MD: 20:23 Primary Care Provider: ARLEEN Allergies: Coded Allergies: NO KNOWN ALLERGIES (Unverified , 02/05/21) Home Meds Active Scripts Pantoprazole Sodium Sesquihydr (Protonix) 40 Mg Tab, 40 MG PO QAM for 30 Days, #30 TAB 0 Refills Prov:ANAYELI CARIAS 06/15/24 Sucralfate (Carafate) 1 Gm/10 Ml Cristal, 10 ML PO BID for 30 Days, #600 ML 0 Refills Prov:ANAYELI CARIAS 06/15/24 Amoxicillin & Pot Clavulanate (AUGMENTIN TABLET) 875 Mg Tb, 875 MG PO BID for 5 Days, #10 TAB 0 Refills Prov:ANAYELI CARIAS 06/15/24 Ondansetron Odt 4MG Tab (ZOFRAN PO) 4 Mg Tb, 4 MG PO [id number] PRN for 30 Days, #60 TAB ODT TAB-DISSOLVE IN MOUTH, THEN SWALLOW Prov:ANAYELI CARIAS RESIDENT 06/15/24 Reported Medications Buprenorphine (Butrans) 15 Mcg/Hr Dis, 1 PATCH TD QWEEKLY for 28 Days, #4 06/13/24 Acetaminophen W/ Codeine (Acetaminophen/Codeine) 1 Tab Tab, 1 TAB PO Q12HR PRN for MODERATE PAIN (4-6 PAIN SCALE) for 30 Days, #60 06/13/24 Lidocaine (Lidocaine) 5 % Pad, 1-2 PATCH TOP DAILY for 30 Days, #60 UNWRAP AND APPLY 1 TO 2 PATCHES EXTERNALLLY TO DRY INTACT SKIN DAILY EVERY 12 HOURS ON AND EVERY 12 HOURS OFF. 06/13/24 Verapamil Hcl (Verapamil Hcl Er) 240 Mg Cap, 1 CAP PO DAILY 08/10/22 Mode of Arrival: Wheelchair Past Medical History Past Medical History (Other): Gastritis, scoliosis Surgical History: Cholecystectomy Family History Family History: Reviewed,noncontributory to illness Social History Smoker: Non-Smoker Alcohol: Denies ETOH Use Drugs: Marijuana Lives In: Home All Other Systems: Reviewed and Negative (Comprehensive systems review obtained and negative except for what is stated in the HPI.) Physical Exam General Appearance: Moderate Distress, Obese HEENT: Other (Pupils and face symmetric. Dry mucous membranes.) Neck: Full Range of Motion, Normal Inspection Respiratory: Lungs Clear, No Accessory Muscle Use, No Respiratory Distress, Normal Breath Sounds Cardiovascular: No Edema, No JVD, Regular Rate/Rhythm Breast Exam: Deferred Gastrointestinal: Epigastric, RLQ, RUQ, Suprapubic, Tenderness Genitalia: Deferred Pelvic: Deferred Rectal: Deferred Extremities: Normal inspection, Normal range of motion, Non-tender, No pedal edema Neurologic: Alert (Oriented x4), Normal Affect, Normal Mood, Other (Moves all extremities) Cerebellar Function: NOT DONE Reflexes: NOT DONE Skin: Dry, Pallor, Warm Lymphatic: NOT DONE Was a procedure done? Was a procedure done?: No GI differential Dx Differential Diagnosis: Diverticular disease, Gastritis/PUD, Gastroenteritis, Inflammatory BD, Ischemic Bowel, UTI, Dehydration, Diabetes/ DKA, Electrolyte Imbalance, Food Poisoning, Bacterial, Viral, Hypovolemia, Stress Ulcer X-Ray, Labs, Meds, VS Vital Signs Date Time Temp Pulse Resp B/P (MAP) Pulse Ox O2 Delivery O2 Flow Rate FiO2 07/16/24 20:20 98.2 97 18 147/98 (114) 99 98.2 Lab Test 07/16/24 21:04 Range/Units White Blood Count 13.7 H 4.4-10.8 10^3/uL Red Blood Count 5.53 4.5-5.90 10^6/uL Hemoglobin 17.0 13.5-17.5 g/dL Hematocrit 49.6 41.0-53.0 % Mean Corpuscular Volume 89.7 80.0-100.0 fL Mean Corpuscular Hemoglobin 30.8 28.0-32.0 pg Mean Corpuscular Hemoglobin Concent 34.3 32.0-36.0 g/dL Red Cell Distribution Width 13.7 11.8-14.3 % Platelet Count 302 140-450 10^3/uL Mean Platelet Volume 9.5 6.9-10.8 fL Neutrophils (%) (Auto) 89.9 H 37.0-80.0 % Lymphocytes (%) (Auto) 8.0 L 10.0-50.0 % Monocytes (%) (Auto) 2.0 0.0-12.0 % Eosinophils (%) (Auto) 0.0 0.0-7.0 % Basophils (%) (Auto) 0.1 0.0-2.0 % Neutrophils # (Auto) 12.3 H 1.6-8.6 10 ^3/uL Lymphocytes # (Auto) 1.1 0.4-5.4 10 ^3/uL Monocytes # (Auto) 0.3 0-1.3 10 ^3/uL Eosinophils # (Auto) 0 0-0.8 10 ^3/uL Basophils # (Auto) 0 0-0.2 10 ^3/uL Nucleated Red Blood Cells 0.1 % Sodium Level 141 136-145 mmol/L Potassium Level 3.9 3.5-5.1 mmol/L Chloride Level 106 98-107 mmol/L Carbon Dioxide Level 22 20-31 mmol/L Anion Gap 13 5-15 Blood Urea Nitrogen 7 L 9-23 mg/dL Creatinine 0.84 0.700-1.30 mg/dL Glomerular Filtration Rate Calc 123 >90 mL/min BUN/Creatinine Ratio 8.3 L 10.0-20.0 Serum Glucose 128 H 74-106 mg/dL Calcium Level 10.6 H 8.7-10.4 mg/dL Total Bilirubin 0.6 0.2-1.0 mg/dL Aspartate Amino Transferase (AST) 25 13-40 U/L Alanine Aminotransferase (ALT) 40 7-40 U/L Alkaline Phosphatase 95 46-116 U/L Troponin I High Sensitivity < 3 L </=54 ng/L Total Protein 8.9 H 5.7-8.2 g/dL Albumin 5.2 H 3.2-4.8 g/dL Lipase 31 12-53 U/L PROCEDURE(s): ABPL - CT AB PEL WO CON-NO ORAL OR IV REASON: abd pain n/v/d ORDER NUMBER(s): [id number], ACCESSION NUMBER(s): [id number] Exam: CT CT AB PEL WO CON-NO ORAL OR IV History: abd pain n/v/d Comparison Study: 06/12/2024 TECHNIQUE: Multidetector CT of the abdomen and pelvis without IV contrast. Axial, coronal and sagittal multiplanar reformats were obtained from the axial data set by the technologist. Radiation Dose Information: CT Dose: CTDI volume is 23.84 mGy. Dose-length product is 1430.87 mGy*cm FINDINGS: The lung bases are clear. Partially visualized heart is unremarkable. Status post cholecystectomy. Mild hepatomegaly. Otherwise, liver, spleen, pancreas and adrenal glands are unremarkable. Kidneys, ureters and urinary bladder unremarkable. Prostate is unremarkable. Stomach is unremarkable. Small bowel loops unremarkable. Appendix is unremarkable. Mild wall thickening of the ascending colon. The remainder of the large bowel is unremarkable. No evidence of intraperitoneal free air or free fluid. No evidence of aortic aneurysm. No significant lymphadenopathy. Tiny fat containing umbilical hernia. The soft tissues are unremarkable. Sclerotic focus over the left proximal femur and anterior L3 vertebral body which may represent bone islands blastic lesions not excluded. No destructive osseous lesions are noted. IMPRESSION: Mild wall thickening of the ascending colon. Correlate for mild colitis. Mild hepatomegaly. X-Ray, Labs, Meds, VS Comment 29-year-old male with a history of gastritis complaining of abdominal pain, nausea and vomiting Vitals remarkable for BP 147/98 Exam remarkable for epigastric, suprapubic and right-sided abdominal tenderness Rhythm strip independently interpreted by me: Sinus rhythm, rate 97, no ectopy. CT abdomen and pelvis IMPRESSION: Mild wall thickening of the ascending colon. Correlate for mild colitis. Mild hepatomegaly. CBC remarkable for WBC 13.7, CMP unremarkable, lipase normal, troponin negative, UA pending Patient treated with the following in the ED: 1 L 0.9 normal saline IV bolus, morphine 4 mg IV, Zofran 4 mg IV, Protonix 40 mg IV, Zosyn 4.5 g IV On re-evaluation, patient stated pain had improved. Vitals were stable. Plan is to admit the patient for IV antibiotics, pain and emesis control and GI evaluation. Time of 1ST Reevaluation: 01:10 Reevaluation 1ST: Improved Patient Education/Counseling: Diagnosis, Treatment Family Education/Counseling: No Family Present Departure 1 Departure Time of Disposition: 01:10 Impression: Primary Impression: Colitis Disposition: 09 ADMITTED INPATIENT Admit to: Med Surg Condition: Guarded Critical Care Note Critical Care Time?: No Stability Stability form required: No Heart Score Heart Score: Heart Score Response (Comments) Value History N/A 0 EKG N/A 0 Age N/A 0 Risk Factors N/A 0 Troponin N/A 0 Total 0 GERARD SOLARES MD Jul 17, 2024 00:56
[2024-07-17] MEDS ORDERED: ACETAMINOPHEN 325 MG TAB PO PRN (01:45)
[2024-07-17] MEDS: ONDANSETRON HCL 4 MG/2 ML VIAL IV ONE (02:02)
[2024-07-17] MEDS: MORPHINE SULFATE 4 MG/ML SYR/VIAL IV ONE (02:07)
[2024-07-17] MEDS: PANTOPRAZOLE 40 MG/10 ML VIAL INJ IV ONE (02:19)
[2024-07-17] MEDS: PIPERACILLIN-TAZO 4.5GM 100 ML IV ONE (02:28)
--- NOTE | 2024-07-17 04:08 | DVHHP2 ---
History of Present Illness Reason for Visit: Abdominal pain History of Present Illness 29-year-old male presents for evaluation of abdominal pain. Patient reports diffuse abdominal pain with associated nausea and vomiting which started today in the morning. She also associates diarrhea and chills. Denies hematemesis or melena. No cardiac or respiratory complaints. Past Medical History Gastritis Past Surgical History Cholecystectomy Family History Noncontributory Smoke: No ALCOHOL: none Drugs: None Lives: with Family Review of Systems Review of Systems Review of systems are currently negative otherwise addressed in HPI. Allergies: Coded Allergies: NO KNOWN ALLERGIES (Unverified , 02/05/21) Medications Current Medications Medications Dose Ordered Sig/Makeda Route Start Time Stop Time Status Last Admin Dose Admin Metronidazole 100 ml @ 100 mls/hr Q8HR IV 07/17/24 06:00 Sucralfate 1 gm QIDACHS PO 07/17/24 07:00 Pantoprazole Sodium 40 mg DAILY IV 07/17/24 10:00 Acetaminophen/ Hydrocodone Bitart 1 tab Q4HP PRN PO 07/17/24 01:45 Ondansetron HCl 4 mg Q4HP PRN IV 07/17/24 01:45 Acetaminophen 650 mg Q6HP PRN PO 07/17/24 01:45 Morphine Sulfate 2 mg Q6HPRN PRN IV 07/17/24 01:45 Metronidazole 100 ml @ 100 mls/hr Q8HR IV 07/17/24 06:00 UNV Exam Vital Signs Vital Signs Date Time Temp Pulse Resp B/P (MAP) Pulse Ox O2 Delivery O2 Flow Rate FiO2 07/17/24 02:08 120 20 97 Room Air 07/17/24 02:08 99.5 160/94 (116) 99.5 Exam Gen: 29-year-old male in mild distress Skin: Warm, dry, normal color and texture, no rash. HEENT: Normocephalic atraumatic, mucous membranes moist and pink. Neck: Cervical and supraclavicular nodes normal without enlargement, trachea is midline, thyroid gland is normal without masses. Pulmonary: Clear to auscultation and percussion bilaterally. Cardiac: Regular rate and rhythm. No murmur Abdomen: Soft, diffuse tenderness, nondistended, bowel sounds present all 4 quadrants, no guarding, no rigidity, no organomegaly. Extremities: No cyanosis, clubbing, no edema Neuro: Cranial nerves II through XII grossly intact, normal affect and speech, no focal motor deficits. Labs/Xrays HYSICIAN: GERARD SOLARES MD PROCEDURE(s): ABPL - CT AB PEL WO CON-NO ORAL OR IV REASON: abd pain n/v/d ORDER NUMBER(s): [id number], ACCESSION NUMBER(s): [id number] Exam: CT CT AB PEL WO CON-NO ORAL OR IV History: abd pain n/v/d Comparison Study: 06/12/2024 TECHNIQUE: Multidetector CT of the abdomen and pelvis without IV contrast. Axial, coronal and sagittal multiplanar reformats were obtained from the axial data set by the technologist. Radiation Dose Information: CT Dose: CTDI volume is 23.84 mGy. Dose-length product is 1430.87 mGy*cm FINDINGS: The lung bases are clear. Partially visualized heart is unremarkable. Status post cholecystectomy. Mild hepatomegaly. Otherwise, liver, spleen, pancreas and adrenal glands are unremarkable. Kidneys, ureters and urinary bladder unremarkable. Prostate is unremarkable. Stomach is unremarkable. Small bowel loops unremarkable. Appendix is unremarkable. Mild wall thickening of the ascending colon. The remainder of the large bowel is unremarkable. No evidence of intraperitoneal free air or free fluid. No evidence of aortic aneurysm. No significant lymphadenopathy. Tiny fat containing umbilical hernia. The soft tissues are unremarkable. Sclerotic focus over the left proximal femur and anterior L3 vertebral body which may represent bone islands blastic lesions not excluded. No destructive osseous lesions are noted. IMPRESSION: Mild wall thickening of the ascending colon. Correlate for mild colitis. Mild hepatomegaly. Labs Test 07/17/24 03:00 07/16/24 21:04 Range/Units White Blood Count 13.7 H 4.4-10.8 10^3/uL Red Blood Count 5.53 4.5-5.90 10^6/uL Hemoglobin 17.0 13.5-17.5 g/dL Hematocrit 49.6 41.0-53.0 % Mean Corpuscular Volume 89.7 80.0-100.0 fL Mean Corpuscular Hemoglobin 30.8 28.0-32.0 pg Mean Corpuscular Hemoglobin Concent 34.3 32.0-36.0 g/dL Red Cell Distribution Width 13.7 11.8-14.3 % Platelet Count 302 140-450 10^3/uL Mean Platelet Volume 9.5 6.9-10.8 fL Neutrophils (%) (Auto) 89.9 H 37.0-80.0 % Lymphocytes (%) (Auto) 8.0 L 10.0-50.0 % Monocytes (%) (Auto) 2.0 0.0-12.0 % Eosinophils (%) (Auto) 0.0 0.0-7.0 % Basophils (%) (Auto) 0.1 0.0-2.0 % Neutrophils # (Auto) 12.3 H 1.6-8.6 10 ^3/uL Lymphocytes # (Auto) 1.1 0.4-5.4 10 ^3/uL Monocytes # (Auto) 0.3 0-1.3 10 ^3/uL Eosinophils # (Auto) 0 0-0.8 10 ^3/uL Basophils # (Auto) 0 0-0.2 10 ^3/uL Nucleated Red Blood Cells 0.1 % Sodium Level 141 136-145 mmol/L Potassium Level 3.9 3.5-5.1 mmol/L Chloride Level 106 98-107 mmol/L Carbon Dioxide Level 22 20-31 mmol/L Anion Gap 13 5-15 Blood Urea Nitrogen 7 L 9-23 mg/dL Creatinine 0.84 0.700-1.30 mg/dL Glomerular Filtration Rate Calc 123 >90 mL/min BUN/Creatinine Ratio 8.3 L 10.0-20.0 Serum Glucose 128 H 74-106 mg/dL Calcium Level 10.6 H 8.7-10.4 mg/dL Total Bilirubin 0.6 0.2-1.0 mg/dL Aspartate Amino Transferase (AST) 25 13-40 U/L Alanine Aminotransferase (ALT) 40 7-40 U/L Alkaline Phosphatase 95 46-116 U/L Troponin I High Sensitivity < 3 L </=54 ng/L Total Protein 8.9 H 5.7-8.2 g/dL Albumin 5.2 H 3.2-4.8 g/dL Lipase 31 12-53 U/L Assessment/Plan Assessment/Plan Assessment Acute colitis Acute abdominal pain Leukocytosis Plan Admit the patient to [facility] to the hospitalist Alexi Clear liquid diet Maintenance IV fluids Pain management Continue treatment per orders Plan discussed with: Patient My Orders Orders - VERONIKA BHATIA Procedure Category Date Status Time Metronidazole PHA 07/17/24 In Process 500mg/100ml (Flagyl 06:00 Sucralfate Tab PHA 07/17/24 In Process (Carafate Tab) 07:00 Pantoprazole PHA 07/17/24 In Process (Protonix) 10:00 Stool Bacterial ROGER 07/17/24 Logged Culture 01:38 Clostridium Difficile ROGER 07/17/24 Logged Toxin 01:38 Admit ADMIT 07/17/24 Transmitted 01:38 Hydrocodone-Acet PHA 07/17/24 In Process 5/325mg Tab ([place] 01:45 Ondansetron Hcl PHA 07/17/24 In Process (Zofran) 01:45 Complete Blood Count LAB 07/18/24 Verified 04:00 Condition: Stable MARY 07/17/24 In Process 01:38 Acetaminophen Tablet PHA 07/17/24 In Process (Tylenol Tablet) 01:45 Clear Liq Diet DIET 07/17/24 Transmitted Breakfast Bedrest With Bathroom MARY 07/17/24 In Process Privileg 01:38 Morphine Sulfate PHA 07/17/24 In Process Injection 01:45 Sodium Chloride 0.9% PHA 07/17/24 In Process 01:45 Metronidazole PHA 07/17/24 Pending 500mg/100ml (Flagyl 06:00 Basic Metabolic Panel LAB 07/18/24 Verified 04:00 Date of Service: Jul 17, 2024 Billing Provider: VERONIKA BHATIA Common Visit Codes: [id number] INP/OBS CARE (HIGH) VERONIKA BHATIA Jul 17, 2024 04:08
[2024-07-17] MEDS: metroNIDAZOLE 500MG/100ML 100 ML IV SCH (04:12)
[2024-07-17] MEDS: SODIUM CHLORIDE 0.9% 1,000 ML IV ONE ×2 (04:14→05:19)
[2024-07-17] MEDS: SUCRALFATE 1 GM TAB PO SCH (04:27)
[2024-07-17] MEDS: cefTRIAXone 1GM/50ML D5W 50 ML IV ONE (05:32)
[2024-07-17] MEDS ORDERED: metroNIDAZOLE 500MG/100ML 100 ML IV SCH (06:00)
[2024-07-17 07:24] LABS: Urine Bacteria None Seen /hpf (None Seen)
[2024-07-17 07:40] LABS: Urine Blood Negative /uL (Negative); Urine Clarity Clear (Clear); Urine Color Colorless (Yellow); Urine Protein, UAD Negative (Negative); Urine Specific Gravity 1.011 (1.001-1.035); Urine Squamous Epithelial Cell None Seen /hpf (<5); Urine Urobilinogen Normal (Negative); Urine WBC 1 /HPF (0-3)
[2024-07-17] MEDS: cefTRIAXone 1GM/50ML D5W 50 ML IV SCH (08:40)
[2024-07-17] MEDS: PANTOPRAZOLE 40 MG/10 ML VIAL INJ IV SCH (08:40)
[2024-07-17] MEDS: MORPHINE SULFATE INJ 2 MG/ml SYRG IV PRN (09:42)
[2024-07-17] MEDS: SODIUM CHLORIDE 0.9% 1,000 ML IV SCH (09:45)
[2024-07-17 10:27] LABS: Basophils # (auto) 0 10 ^3/uL (0-0.2); Basophils % (auto) 0.3 % (0.0-2.0); Eosinophils # (auto) 0 10 ^3/uL (0-0.8); Hematocrit 43.6 % (41.0-53.0); Hemoglobin 15.1 g/dL (13.5-17.5); Lymphocytes % (auto) 15.5 % (10.0-50.0); Mean Corpuscular Hemoglobin 31.1 pg (28.0-32.0); Mean Corpuscular Hgb Conc. 34.6 g/dL (32.0-36.0); Mean Corpuscular Volume 89.7 fL (80.0-100.0); Monocytes # (auto) 0.9 10 ^3/uL (0-1.3); Monocytes % (auto) 6.8 % (0.0-12.0); Neutrophils # (auto) 10.1 10 ^3/uL (1.6-8.6); Neutrophils % (auto) 77.4 % (37.0-80.0); Platelet Count (auto) 289 10^3/uL (140-450); Red Blood Cells 4.86 10^6/uL (4.5-5.90); Red Cell Distribution Width 14.3 % (11.8-14.3)
[2024-07-17 10:38] LABS: Alanine Aminotransferase 32 U/L (7-40); Albumin 4.7 g/dL (3.2-4.8); Alkaline Phosphatase 76 U/L (46-116); Anion Gap 11 (5-15); Aspartate Aminotransferase 18 U/L (13-40); BUN/Creatinine Ratio 8.2 (10.0-20.0); Calcium 9.6 mg/dL (8.7-10.4); Carbon Dioxide 25 mmol/L (20-31); Potassium 3.8 mmol/L (3.5-5.1); Sodium 144 mmol/L (136-145); Total Protein 7.9 g/dL (5.7-8.2)
[2024-07-17 10:39] LABS: Bilirubin, Total 0.7 mg/dL (0.2-1.0); Blood Urea Nitrogen 8 mg/dL (9-23); Chloride 108 mmol/L (98-107); Glucose 117 mg/dL (74-106)
[2024-07-17 11:02] LABS: Opiate Scree,Urine Neg (NEGATIVE)
[2024-07-17 11:03] LABS: Amphetamine Screen, Urine Neg (NEGATIVE); Barbiturate Scree,Urine Neg (NEGATIVE); Benzodiazephine Screen, Urine Neg (NEGATIVE); Cannabinoid Screen, Urine Pos (NEGATIVE); Cocaine Screen, Urine Neg (NEGATIVE); Phencyclidine Screen, Urine Neg (NEGATIVE)
[2024-07-17 11:04] LABS: Lactic Acid w/Reflex 2.9 mmol/L (0.4-2.0)
[2024-07-17] MEDS: ONDANSETRON HCL 4 MG/2 ML VIAL IV PRN (14:15)
--- NOTE | 2024-07-17 18:59 | DVHPNRES ---
Progress Note Date Seen: Jul 17, 2024 Resident Creating Document: LEONIDES ISAAC RESIDENT Medical Necessity Reason Pt with a Central, PICC or Fol: No Subjective Review of Systems Patient is 29 years old male with a past medical history of gastritis, status post cholecystectomy 6-7 years before came with a complaint of abdominal pain and intractable nausea and vomiting. As per patient he has been having abdominal pain started yesterday, epigastric region, 8/10, crampy sharp, radiating to the lower abdomen, aggravated with food. Patient also endorsed nausea and vomiting 7 times mainly watery content or yellowish fluid, No blood. Patient reported smoking marijuana, last smoking was 2 days before. Patient denied any fever or acute joint pain or swelling or dysarthria or dysuria. Initial lab workup revealed leukocytosis, due to Cl 89.9%, lactic acidosis with lactic acid 4.1. CT abdomen pelvis revealed mild wall thickening of the ascending colon, mild colitis. PMH-gastritis PSH- cholecystectomy Allergy- NKDA Personal History/ Social History- smokes marijuana Patient was seen today at the bedside. Patient Cardiovascular- deny acute chest pain or shortness of breath or cough or palpitation Respiratory denies cough or short of breath or wheezing Gastrointestinal- denies any rectal bleeding, nausea or vomiting Musculoskeletal-denies acute joint swelling or tenderness or redness Neurological- denies acute dysarthria, dysphagia, change in vision Psychiatry- denies depression or SI or HI Skin- denies acute rash or purpura Patient was seen today for clinical evaluation. Labs and chart reviewed. Patient reported ongoing abdominal pain, vomited earlier this morning with yellowish fluid, no blood. Objective vital signs Vital Sign Date Time Temp Pulse Resp B/P (MAP) Pulse Ox O2 Delivery O2 Flow Rate FiO2 07/17/24 14:00 98.8 73 18 117/60 (79) 98 98.8 07/17/24 05:13 Room Air* 0 21 Total Intake and Output 07/16/24 07/16/24 07/17/24 15:00 23:00 07:00 Intake Total 100 ml Balance 100 ml medications Current Medications Medications Dose Ordered Sig/Makeda Route Start Time Stop Time Status Last Admin Dose Admin Metronidazole 100 ml @ 100 mls/hr Q8HR IV 07/17/24 06:00 07/17/24 14:09 100 MLS/HR Sucralfate 1 gm QIDACHS PO 07/17/24 07:00 07/17/24 16:44 1 GM Pantoprazole Sodium 40 mg DAILY IV 07/17/24 10:00 07/17/24 08:40 40 MG Acetaminophen/ Hydrocodone Bitart 1 tab Q4HP PRN PO 07/17/24 01:45 Ondansetron HCl 4 mg Q4HP PRN IV 07/17/24 01:45 07/17/24 14:15 4 MG Acetaminophen 650 mg Q6HP PRN PO 07/17/24 01:45 Morphine Sulfate 2 mg Q6HPRN PRN IV 07/17/24 01:45 07/17/24 09:42 2 MG Ceftriaxone Sodium 50 ml @ 100 mls/hr DAILY@09 IV 07/17/24 09:00 07/17/24 08:40 100 MLS/HR Sodium Chloride 1,000 ml @ 150 mls/hr Q6H40M IV 07/17/24 09:45 07/17/24 09:45 150 MLS/HR Examination General examination- awake, alert, oriented HEENT- PEERLA, no acute nasal discharge Cardiovascular- S1-S2 audible, rate and rhythm regular, no murmur Respiratory- CTAB, no wheeze or rhonchi Gastrointestinal-epigastric tenderness 1+,, bowel sound+. Nondistended Musculoskeletal-no acute joint swelling or tenderness or redness Lower extremity- no leg edema Neurological- cranial nerves intact, no acute dysarthria or dysphagia Psychiatry- denies depression or SI or HI Skin- no acute rash or purpura laboratory and microbiology Laboratory Tests 07/17/24 10:16 Test 07/17/24 10:16 Range/Units Serum Glucose 117 H 74-106 mg/dL Problem List/Assessment/Plan Problem List/Assessment/Plan Assessment and plan Acute abdominal pain with intractable nausea and vomiting likely due to acute colitis -CT abdomen pelvis revealed mild wall thickening of the ascending colon, mild colitis Continue IV fluid as prescribed -continue ceftriaxone metronidazole as prescribed #Marijuana induced acute intractable nausea and vomiting -continue IV fluid as prescribed -continue pain management as prescribed #Lactic acidosis likely from dehydration -lactic acid 4.1 -continue IV fluid as prescribed #Leukocytosis likely from colitis -continue current management #Obesity BMI 35.0 -patient was counseled about the effect of obesity on health Diet clear liquid Goals of care, Code status ; discussed with >15 minutes PUD prophylaxis: Pantoprazole DVT prophylaxis: Patient ambulating Plan discussed with Dr. Hoffman , nursing staff, Total time spent on patient evaluation, chart review, assessment and plan, discussion discussion >35 minutes Plan discussed with: Patient, Other (RN) My Orders My Orders Orders - LEONIDES ISAAC Procedure Category Date Status Time Hemoglobin A1c LAB 07/18/24 Verified 04:00 Thyroid Stimulating LAB 07/18/24 Verified Hormone 04:00 Sodium Chloride 0.9% PHA 07/17/24 In Process 09:45 Date of Service: Jul 17, 2024 Billing Provider: NIDHI WADSWORTH MD Common Visit Codes: [id number] INP/OBS CARE(HIGH) LEONIDES ISAAC Jul 17, 2024 18:59 NIDHI WADSWORTH MD July 27, 2024 21:28
[2024-07-17] MEDS: HYDROcodone-ACET 5/325MG TAB PO PRN (22:19)
[2024-07-18 01:00] VITALS: BP 109/59; PULSE 60; RESP 18; TEMP 98.2; O2SAT 99
[2024-07-18 05:00] VITALS: BP 102/52; PULSE 56; RESP 18; TEMP 97.9; O2SAT 97
[2024-07-18 05:57] LABS: Basophils # (auto) 0 10 ^3/uL (0-0.2); Basophils % (auto) 0.3 % (0.0-2.0); Eosinophils # (auto) 0.1 10 ^3/uL (0-0.8); Eosinophils % (auto) 1.1 % (0.0-7.0); Hematocrit 43.7 % (41.0-53.0); Hemoglobin 15.2 g/dL (13.5-17.5); Lymphocytes # (auto) 3.1 10 ^3/uL (0.4-5.4); Mean Corpuscular Hemoglobin 31.1 pg (28.0-32.0); Mean Corpuscular Hgb Conc. 34.7 g/dL (32.0-36.0); Mean Corpuscular Volume 89.7 fL (80.0-100.0); Monocytes # (auto) 0.6 10 ^3/uL (0-1.3); Monocytes % (auto) 6.4 % (0.0-12.0); Neutrophils % (auto) 57.2 % (37.0-80.0); Nucleated Red Blood Cells % 0.1 %; Platelet Count (auto) 243 10^3/uL (140-450); Red Blood Cells 4.87 10^6/uL (4.5-5.90); Red Cell Distribution Width 13.9 % (11.8-14.3); White Blood Cell 8.8 10^3/uL (4.4-10.8)
[2024-07-18 06:08] LABS: Potassium 3.6 mmol/L (3.5-5.1); Sodium 144 mmol/L (136-145)
[2024-07-18 06:09] LABS: Anion Gap 9 (5-15); Calcium 9.6 mg/dL (8.7-10.4); Carbon Dioxide 27 mmol/L (20-31)
[2024-07-18 06:14] LABS: BUN/Creatinine Ratio 8.3 (10.0-20.0); Glucose 92 mg/dL (74-106)
[2024-07-18 06:15] LABS: Blood Urea Nitrogen 7 mg/dL (9-23); Chloride 108 mmol/L (98-107)
[2024-07-18 09:00] VITALS: BP 112/74; PULSE 64; RESP 20; TEMP 98; O2SAT 98
[2024-07-18 13:00] VITALS: BP 116/52; PULSE 64; RESP 20; TEMP 98.8; O2SAT 98
[2024-07-18 17:00] VITALS: BP 110/64; PULSE 70; RESP 20; TEMP 97.9; O2SAT 98
[2024-07-18] MEDS: VANCOMYCIN HCL 125 MG CAP PO ONE (17:09)
[2024-07-18] MEDS: SODIUM CHLORIDE 0.9% 1,000 ML IV SCH (17:10)
--- NOTE | 2024-07-18 17:29 | DVHPNRES ---
Progress Note Date Seen: Jul 18, 2024 Resident Creating Document: LEONIDES ISAAC RESIDENT Medical Necessity Reason Pt with a Central, PICC or Fol: No Subjective Review of Systems Patient is 29 years old male with a past medical history of gastritis, status post cholecystectomy 6-7 years before came with a complaint of abdominal pain and intractable nausea and vomiting. As per patient he has been having abdominal pain started yesterday, epigastric region, 8/10, crampy sharp, radiating to the lower abdomen, aggravated with food. Patient also endorsed nausea and vomiting 7 times mainly watery content or yellowish fluid, No blood. Patient reported smoking marijuana, last smoking was 2 days before. Patient denied any fever or acute joint pain or swelling or dysarthria or dysuria. Initial lab workup revealed leukocytosis, due to Cl 89.9%, lactic acidosis with lactic acid 4.1. CT abdomen pelvis revealed mild wall thickening of the ascending colon, mild colitis. PMH-gastritis PSH- cholecystectomy Allergy- NKDA Personal History/ Social History- smokes marijuana Patient was seen today at the bedside. Patient Cardiovascular- deny acute chest pain or shortness of breath or cough or palpitation Respiratory denies cough or short of breath or wheezing Gastrointestinal- denies any rectal bleeding, nausea or vomiting Musculoskeletal-denies acute joint swelling or tenderness or redness Neurological- denies acute dysarthria, dysphagia, change in vision Psychiatry- denies depression or SI or HI Skin- denies acute rash or purpura Patient was seen today for clinical evaluation. Labs and chart reviewed. Patient reported abdominal pain has improved. Toxigenic C diff positive. Ordered vancomycin oral, probiotic Objective vital signs Vital Sign Date Time Temp Pulse Resp B/P (MAP) Pulse Ox O2 Delivery O2 Flow Rate FiO2 07/18/24 13:00 98.8 64 20 116/52 (73) 98 98.8 07/18/24 08:00 Room Air* 0 21 Total Intake and Output 07/17/24 07/17/24 07/18/24 15:00 23:00 07:00 Intake Total 800 ml 550 ml 1240 ml Balance 800 ml 550 ml 1240 ml medications Current Medications Medications Dose Ordered Sig/Makeda Route Start Time Stop Time Status Last Admin Dose Admin Metronidazole 100 ml @ 100 mls/hr Q8HR IV 07/17/24 06:00 07/18/24 13:51 100 MLS/HR Sucralfate 1 gm QIDACHS PO 07/17/24 07:00 07/18/24 17:09 1 GM Pantoprazole Sodium 40 mg DAILY IV 07/17/24 10:00 07/18/24 10:25 40 MG Acetaminophen/ Hydrocodone Bitart 1 tab Q4HP PRN PO 07/17/24 01:45 07/18/24 13:57 1 TAB Ondansetron HCl 4 mg Q4HP PRN IV 07/17/24 01:45 07/17/24 14:15 4 MG Acetaminophen 650 mg Q6HP PRN PO 07/17/24 01:45 Morphine Sulfate 2 mg Q6HPRN PRN IV 07/17/24 01:45 07/18/24 10:35 2 MG Ceftriaxone Sodium 50 ml @ 100 mls/hr DAILY@09 IV 07/17/24 09:00 07/18/24 10:25 100 MLS/HR Sodium Chloride 1,000 ml @ 75 mls/hr [id number] IV 07/18/24 18:00 07/18/24 17:10 75 MLS/HR Vancomycin HCl 125 mg QID PO 07/18/24 22:00 Examination General examination- awake, alert, oriented HEENT- PEERLA, no acute nasal discharge Cardiovascular- S1-S2 audible, rate and rhythm regular, no murmur Respiratory- CTAB, no wheeze or rhonchi Gastrointestinal-epigastric tenderness 1+,, bowel sound+. Nondistended Musculoskeletal-no acute joint swelling or tenderness or redness Lower extremity- no leg edema Neurological- cranial nerves intact, no acute dysarthria or dysphagia Psychiatry- denies depression or SI or HI Skin- no acute rash or purpura laboratory and microbiology Laboratory Tests 07/18/24 04:38 Test 07/18/24 04:38 Range/Units Serum Glucose 92 74-106 mg/dL Microbiology Date/Time Source Procedure Growth Status 07/17/24 10:00 Stool Stool Culture - Preliminary Resulted 07/17/24 10:00 Stool Shiga Toxin I & II - Final Resulted 07/17/24 10:00 Stool Clostridium difficile Toxin Assay - Final Resulted 07/17/24 01:19 Blood Blood Culture - Preliminary NO GROWTH AFTER 24 HOURS OF INCUBATION. Resulted Problem List/Assessment/Plan Problem List/Assessment/Plan Assessment and plan Sepsis due to colitis Acute abdominal pain with intractable nausea and vomiting likely due to acute colitis Clostridium C diff infection -Toxigenic C diff positive. -CT abdomen pelvis revealed mild wall thickening of the ascending colon, mild colitis Continue IV fluid as prescribed -ordered oral vancomycin 125 mg p.o. q.6h -ordered probiotic -Monitor CBC, CMP #Marijuana induced acute intractable nausea and vomiting -continue IV fluid as prescribed -continue pain management as prescribed #Lactic acidosis likely from dehydration -lactic acid 4.1 -continue IV fluid as prescribed #Leukocytosis likely from colitis -continue current management #Obesity BMI 35.0 -patient was counseled about the effect of obesity on health Diet clear liquid Goals of care, Code status ; discussed with >15 minutes PUD prophylaxis: Pantoprazole DVT prophylaxis: Patient ambulating Plan discussed with Dr. Hoffman , nursing staff, Total time spent on patient evaluation, chart review, assessment and plan, discussion discussion >35 minutes Plan discussed with: Patient, Other (RN) My Orders My Orders Orders - LEONIDES ISAAC Procedure Category Date Status Time Sodium Chloride 0.9% PHA 07/18/24 In Process 18:00 Vancomycin Po PHA 07/18/24 In Process 22:00 Date of Service: Jul 18, 2024 Billing Provider: NIDHI WADSWORTH MD Common Visit Codes: [id number] INP/OBS CARE(HIGH) LEONIDES ISAAC Jul 18, 2024 17:29 NIDHI WADSWORTH MD July 27, 2024 22:26
[2024-07-18 21:00] VITALS: BP 107/68; PULSE 74; RESP 18; TEMP 98.2; O2SAT 96
[2024-07-18] MEDS: VANCOMYCIN HCL 125 MG CAP PO SCH (21:27)
[2024-07-19] VITALS (8 sets, daily range): BP systolic 98–115; BP diastolic 41–71; PULSE 55–65; RESP 17–18; TEMP 97.7–99.1; O2SAT 95–100
[2024-07-19] MEDS: SODIUM CHLORIDE 0.9% 500 ML IV ONE (06:15)
[2024-07-19] MEDS: FLORASTOR (S. BOULARDII) 250 MG CAP PO SCH (09:05)
[2024-07-19 09:09] LABS: Basophils # (auto) 0 10 ^3/uL (0-0.2); Basophils % (auto) 0.5 % (0.0-2.0); Eosinophils # (auto) 0.1 10 ^3/uL (0-0.8); Eosinophils % (auto) 1.3 % (0.0-7.0); Hematocrit 42.1 % (41.0-53.0); Hemoglobin 14.5 g/dL (13.5-17.5); Lymphocytes # (auto) 2.4 10 ^3/uL (0.4-5.4); Lymphocytes % (auto) 30.1 % (10.0-50.0); Mean Corpuscular Hemoglobin 30.9 pg (28.0-32.0); Mean Corpuscular Hgb Conc. 34.4 g/dL (32.0-36.0); Mean Corpuscular Volume 89.8 fL (80.0-100.0); Monocytes # (auto) 0.6 10 ^3/uL (0-1.3); Monocytes % (auto) 7.5 % (0.0-12.0); Neutrophils # (auto) 4.8 10 ^3/uL (1.6-8.6); Neutrophils % (auto) 60.6 % (37.0-80.0); Nucleated Red Blood Cells % 0.1 %; Platelet Count (auto) 241 10^3/uL (140-450); Red Blood Cells 4.69 10^6/uL (4.5-5.90); Red Cell Distribution Width 13.6 % (11.8-14.3); White Blood Cell 7.9 10^3/uL (4.4-10.8)
[2024-07-19 09:10] LABS: Sodium 144 mmol/L (136-145)
[2024-07-19 09:11] LABS: Anion Gap 9 (5-15); Calcium 9.1 mg/dL (8.7-10.4); Carbon Dioxide 27 mmol/L (20-31)
[2024-07-19 09:15] LABS: Chloride 108 mmol/L (98-107); Potassium 3.5 mmol/L (3.5-5.1)
[2024-07-19 09:17] LABS: Magnesium 1.7 mg/dL (1.6-2.6)
[2024-07-19 09:19] LABS: BUN/Creatinine Ratio 5.7 (10.0-20.0); Blood Urea Nitrogen < 5 mg/dL (9-23); Glucose 108 mg/dL (74-106)
[2024-07-19] MEDS: metroNIDAZOLE 500MG/100ML 100 ML IV SCH (14:30)
--- NOTE | 2024-07-19 15:32 | DVHPNRES ---
Progress Note Date Seen: Jul 19, 2024 Resident Creating Document: LEONIDES ISAAC RESIDENT Medical Necessity Reason Pt with a Central, PICC or Fol: No Subjective Review of Systems Patient is 29 years old male with a past medical history of gastritis, status post cholecystectomy 6-7 years before came with a complaint of abdominal pain and intractable nausea and vomiting. As per patient he has been having abdominal pain started yesterday, epigastric region, 8/10, crampy sharp, radiating to the lower abdomen, aggravated with food. Patient also endorsed nausea and vomiting 7 times mainly watery content or yellowish fluid, No blood. Patient reported smoking marijuana, last smoking was 2 days before. Patient denied any fever or acute joint pain or swelling or dysarthria or dysuria. Initial lab workup revealed leukocytosis, due to Cl 89.9%, lactic acidosis with lactic acid 4.1. CT abdomen pelvis revealed mild wall thickening of the ascending colon, mild colitis. PMH-gastritis PSH- cholecystectomy Allergy- NKDA Personal History/ Social History- smokes marijuana Patient was seen today at the bedside. Patient Cardiovascular- deny acute chest pain or shortness of breath or cough or palpitation Respiratory denies cough or short of breath or wheezing Gastrointestinal- denies any rectal bleeding, nausea or vomiting Musculoskeletal-denies acute joint swelling or tenderness or redness Neurological- denies acute dysarthria, dysphagia, change in vision Psychiatry- denies depression or SI or HI Skin- denies acute rash or purpura Patient was seen today for clinical evaluation. Labs and chart reviewed. Patient on p.o. vancomycin. Plan is to continue Flagyl as prescribed. Patient reported still getting formed. Objective vital signs Vital Sign Date Time Temp Pulse Resp B/P (MAP) Pulse Ox O2 Delivery O2 Flow Rate FiO2 07/19/24 13:00 97.7 55 17 107/52 (70) 95 97.7 07/19/24 08:00 Room Air* 0 21 Total Intake and Output 07/18/24 07/18/24 07/19/24 15:00 23:00 07:00 Intake Total 250 ml 2400 ml 1800 ml Output Total 450 ml 700 ml Balance 250 ml 1950 ml 1100 ml medications Current Medications Medications Dose Ordered Sig/Makeda Route Start Time Stop Time Status Last Admin Dose Admin Sucralfate 1 gm QIDACHS PO 07/17/24 07:00 07/19/24 12:25 1 GM Pantoprazole Sodium 40 mg DAILY IV 07/17/24 10:00 07/19/24 09:03 40 MG Acetaminophen/ Hydrocodone Bitart 1 tab Q4HP PRN PO 07/17/24 01:45 07/18/24 13:57 1 TAB Ondansetron HCl 4 mg Q4HP PRN IV 07/17/24 01:45 07/19/24 09:14 4 MG Acetaminophen 650 mg Q6HP PRN PO 07/17/24 01:45 Morphine Sulfate 2 mg Q6HPRN PRN IV 07/17/24 01:45 07/19/24 09:16 2 MG Vancomycin HCl 125 mg QID PO 07/18/24 22:00 07/19/24 12:25 125 MG Saccharomyces Boulardii 250 mg DAILY PO 07/19/24 10:00 07/19/24 09:05 250 MG Metronidazole 100 ml @ 100 mls/hr Q8HR IV 07/19/24 14:00 07/19/24 14:30 100 MLS/HR laboratory and microbiology Laboratory Tests 07/19/24 08:53 Test 07/19/24 08:53 Range/Units Serum Glucose 108 H 74-106 mg/dL Microbiology Date/Time Source Procedure Growth Status 07/17/24 10:00 Stool Stool Culture - Preliminary Resulted 07/17/24 10:00 Stool Shiga Toxin I & II - Final Resulted 07/17/24 10:00 Stool Clostridium difficile Toxin Assay - Final Resulted 07/17/24 01:19 Blood Blood Culture - Preliminary NO GROWTH AFTER 48 HOURS OF INCUBATION. Resulted Problem List/Assessment/Plan Problem List/Assessment/Plan Assessment and plan Sepsis due to colitis Acute abdominal pain with intractable nausea and vomiting likely due to acute colitis Clostridium diff infection -Toxigenic C diff positive. -CT abdomen pelvis revealed mild wall thickening of the ascending colon, mild colitis -ordered oral vancomycin 125 mg p.o. q.6h Continue Flagyl 500 mg IV q.8h -continue probiotic -Monitor CBC, CMP #Marijuana induced acute intractable nausea and vomiting -continue IV fluid as prescribed -continue pain management as prescribed #Lactic acidosis likely from dehydration -resolved #Leukocytosis likely from colitis -continue current management #Obesity BMI 35.0 -patient was counseled about the effect of obesity on health Diet clear liquid Goals of care, Code status ; discussed with >15 minutes PUD prophylaxis: Pantoprazole DVT prophylaxis: Patient ambulating Plan discussed with Dr. Hoffman , nursing staff, Total time spent on patient evaluation, chart review, assessment and plan, discussion discussion >35 minutes Plan discussed with: Patient, Other (RN) My Orders My Orders Orders - LEONIDES ISAAC Procedure Category Date Status Time Vancomycin Po PHA 07/18/24 In Process 22:00 Florastor (S. PHA 07/19/24 In Process Boulardii) (Florastor) 10:00 Metronidazole PHA 07/19/24 In Process 500mg/100ml (Flagyl 14:00 Dietary Evaluation Review Comments: 1. On Clear liquid, Offer Ensure Clear and Prostat as additional energy and protein supplement 2. Advance to diet as tolerated when mecidally feasible. 3. consider TPN if GI unaccessible for diet Expected Outcomes/Goals: gradual wt loss. improved GI function. Date of Service: Jul 19, 2024 Billing Provider: NIDHI WADSWORTH MD Common Visit Codes: [id number] INP/OBS CARE(HIGH) LEONIDES ISAAC Jul 19, 2024 15:32 NIDHI WADSWORTH MD July 27, 2024 21:18
[2024-07-20 01:00] VITALS: BP 100/50; PULSE 67; RESP 18; TEMP 98.4; O2SAT 97
[2024-07-20 05:00] VITALS: BP 101/58; PULSE 54; RESP 18; TEMP 98.6; O2SAT 94
[2024-07-20 05:33] LABS: Basophils # (auto) 0 10 ^3/uL (0-0.2); Basophils % (auto) 0.4 % (0.0-2.0); Chloride 106 mmol/L (98-107); Eosinophils # (auto) 0.1 10 ^3/uL (0-0.8); Eosinophils % (auto) 1.6 % (0.0-7.0); Hemoglobin 15.2 g/dL (13.5-17.5); Lymphocytes # (auto) 2.9 10 ^3/uL (0.4-5.4); Lymphocytes % (auto) 31.4 % (10.0-50.0); Mean Corpuscular Hgb Conc. 34.6 g/dL (32.0-36.0); Mean Corpuscular Volume 89.6 fL (80.0-100.0); Monocytes # (auto) 0.7 10 ^3/uL (0-1.3); Monocytes % (auto) 7.6 % (0.0-12.0); Neutrophils # (auto) 5.5 10 ^3/uL (1.6-8.6); Platelet Count (auto) 251 10^3/uL (140-450); Red Blood Cells 4.91 10^6/uL (4.5-5.90); Red Cell Distribution Width 13.7 % (11.8-14.3); Sodium 143 mmol/L (136-145); White Blood Cell 9.4 10^3/uL (4.4-10.8)
[2024-07-20 05:34] LABS: Anion Gap 9 (5-15); Calcium 9.7 mg/dL (8.7-10.4); Carbon Dioxide 28 mmol/L (20-31)
[2024-07-20 05:39] LABS: BUN/Creatinine Ratio 5.3 (10.0-20.0); Glucose 91 mg/dL (74-106)
[2024-07-20 05:40] LABS: Blood Urea Nitrogen 5 mg/dL (9-23); Potassium 3.3 mmol/L (3.5-5.1)
[2024-07-20 08:00] VITALS: PULSE 60; RESP 17
[2024-07-20 08:57] VITALS: BP 119/68; PULSE 70; RESP 16; TEMP 98.2; O2SAT 96
[2024-07-20] MEDS: POTASSIUM CHL 20 Meq TABLET PO ONE (09:14)
--- NOTE | 2024-07-20 10:41 | DVHDSRES ---
Discharge Summary Date of Admission Resident Creating Document: LEONIDES ISAAC RESIDENT Jul 17, 2024 at 01:38 Date of Discharge: Jul 20, 2024 Labs/Diagnostic Data: Laboratory Results Test 07/20/24 04:42 07/19/24 08:53 07/18/24 06:59 07/18/24 04:38 White Blood Count 9.4 10^3/uL (4.4-10.8) Red Blood Count 4.91 10^6/uL (4.5-5.90) Hemoglobin 15.2 g/dL (13.5-17.5) Hematocrit 44.0 % (41.0-53.0) Mean Corpuscular Volume 89.6 fL (80.0-100.0) Mean Corpuscular Hemoglobin 31.0 pg (28.0-32.0) Mean Corpuscular Hemoglobin Concent 34.6 g/dL (32.0-36.0) Red Cell Distribution Width 13.7 % (11.8-14.3) Platelet Count 251 10^3/uL (140-450) Mean Platelet Volume 9.4 fL (6.9-10.8) Neutrophils (%) (Auto) 59.0 % (37.0-80.0) Lymphocytes (%) (Auto) 31.4 % (10.0-50.0) Monocytes (%) (Auto) 7.6 % (0.0-12.0) Eosinophils (%) (Auto) 1.6 % (0.0-7.0) Basophils (%) (Auto) 0.4 % (0.0-2.0) Neutrophils # (Auto) 5.5 10 ^3/uL (1.6-8.6) Lymphocytes # (Auto) 2.9 10 ^3/uL (0.4-5.4) Monocytes # (Auto) 0.7 10 ^3/uL (0-1.3) Eosinophils # (Auto) 0.1 10 ^3/uL (0-0.8) Basophils # (Auto) 0 10 ^3/uL (0-0.2) Nucleated Red Blood Cells 0.0 % Sodium Level 143 mmol/L (136-145) Potassium Level 3.3 mmol/L (3.5-5.1) Chloride Level 106 mmol/L (98-107) Carbon Dioxide Level 28 mmol/L (20-31) Anion Gap 9 (5-15) Blood Urea Nitrogen 5 mg/dL (9-23) Creatinine 0.95 mg/dL (0.700-1.30) Glomerular Filtration Rate Calc 113 mL/min (>90) BUN/Creatinine Ratio 5.3 (10.0-20.0) Serum Glucose 91 mg/dL (74-106) Calcium Level 9.7 mg/dL (8.7-10.4) Magnesium Level 1.7 mg/dL (1.6-2.6) Lactic Acid Level 1.6 mmol/L (0.4-2.0) Hemoglobin A1c 4.7 % A1C (<5.7) Thyroid Stimulating Hormone (TSH) 4.25 uIU/mL (0.55-4.78) Test 07/17/24 10:16 07/17/24 05:50 07/16/24 21:04 Total Bilirubin 0.7 mg/dL (0.2-1.0) Aspartate Amino Transferase (AST) 18 U/L (13-40) Alanine Aminotransferase (ALT) 32 U/L (7-40) Alkaline Phosphatase 76 U/L (46-116) Total Protein 7.9 g/dL (5.7-8.2) Albumin 4.7 g/dL (3.2-4.8) Plasma/Serum Blood Alcohol < 3.0 mg/dL (<10) Urine Color Colorless (Yellow) Urine Clarity Clear (Clear) Urine pH 6.0 (5.0-9.0) Urine Specific [place] 1.011 (1.001-1.035) Urine Protein Negative (Negative) Urine Ketones Negative (Negative) Urine Blood Negative /uL (Negative) Urine Nitrite Negative (Negative) Urine Bilirubin Negative (Negative) Urine Urobilinogen Normal mg/dL (Negative) Urine Leukocyte Esterase Negative /uL (Negative) Urine RBC <1 /hpf (0 - 3) Urine Microscopic WBC 1 /HPF (0-3) Urine Squamous Epithelial Cells None seen /hpf (<5) Urine Bacteria None seen /hpf (None Seen) Urine Glucose Normal mg/dL (Normal) Urine Opiates Screen Neg (NEGATIVE) Urine Fentanyl Screen Neg (NEGATIVE) Urine Barbiturates Screen Neg (NEGATIVE) Urine Phencyclidine Screen Neg (NEGATIVE) Urine Amphetamines Screen Neg (NEGATIVE) Urine Benzodiazepines Screen Neg (NEGATIVE) Urine Cocaine Screen Neg (NEGATIVE) Urine Cannabinoids Screen Pos (NEGATIVE) Troponin I High Sensitivity < 3 ng/L (</=54) Lipase 31 U/L (12-53) Other Laboratory Tests 07/20/24 04:42 Brief Hx & Hospital Course: Patient is 29 years old male with a past medical history of gastritis, status post cholecystectomy 6-7 years before came with a complaint of abdominal pain and intractable nausea and vomiting. As per patient he has been having abdominal pain started yesterday, epigastric region, 8/10, crampy sharp, radiating to the lower abdomen, aggravated with food. Patient also endorsed nausea and vomiting 7 times mainly watery content or yellowish fluid, No blood. Patient reported smoking marijuana, last smoking was 2 days before. Patient denied any fever or acute joint pain or swelling or dysarthria or dysuria. Initial lab workup revealed leukocytosis, due to Cl 89.9%, lactic acidosis with lactic acid 4.1. CT abdomen pelvis revealed mild wall thickening of the ascending colon, mild colitis. Toxin C difficile DNA test positive. Patient is 29 years old male with a past medical history of gastritis, status post cholecystectomy 6-7 years before came with a complaint of abdominal pain and intractable nausea and vomiting. As per patient he has been having abdominal pain started yesterday, epigastric region, 8/10, crampy sharp, radiating to the lower abdomen, aggravated with food. Patient also endorsed nausea and vomiting 7 times mainly watery content or yellowish fluid, No blood. Patient reported smoking marijuana, last smoking was 2 days before. Patient denied any fever or acute joint pain or swelling or dysarthria or dysuria. Initial lab workup revealed leukocytosis, due to Cl 89.9%, lactic acidosis with lactic acid 4.1. CT abdomen pelvis revealed mild wall thickening of the ascending colon, mild colitis. Toxin C difficile DNA test positive patient was treated with p.o. vancomycin. Patient's symptom improved. Patient was being discharged with vancomycin 125 mg p.o. q.6h for 9 more days along with probiotic. Patient's meds were sent to the pharmacy electronically. Patient was hemodynamically stable on discharge. Patient was advised to follow up with the primary care physician in 1 week. Assessment Sepsis due to colitis Acute abdominal pain with intractable nausea and vomiting likely due to acute colitis Clostridium diff infection -Toxigenic C diff positive. Acute gastroenteritis likely due to colitis #Marijuana induced acute intractable nausea and vomiting #Lactic acidosis likely from dehydration #Leukocytosis likely from colitis #Obesity BMI 35.0 Discharge plan Continue vancomycin 125 mg p.o. q.6h for 8 days Florastor 250 mg p.o. daily for 3 weeks Pantoprazole 20 mg p.o. daily for 2 weeks 4 mg q.6h PRN for 5 days Avoid dehydration and nephrotoxic drugs Please follow up with the primary care physician in 1 week Contact recreation for 2 weeks Operations or Procedures [place] [id number] Ph: [phone] DIAGNOSTIC IMAGING Diagnostic Imaging Report : [id number] Signed PATIENT: LON DONG ACCT: [id number] UNIT: [id number] : 1995 LOC: ER ROOM / BED: / AGE / SEX: 29 / M ADM STATUS: REG ER SERVICE 28 ORDERING PHYSICIAN: GERARD SOLARES MD PROCEDURE(s): ABPL - CT AB PEL WO CON-NO ORAL OR IV REASON: abd pain n/v/d ORDER NUMBER(s): [id number], ACCESSION NUMBER(s): [id number] Exam: CT CT AB PEL WO CON-NO ORAL OR IV History: abd pain n/v/d Comparison Study: 06/12/2024 TECHNIQUE: Multidetector CT of the abdomen and pelvis without IV contrast. Axial, coronal and sagittal multiplanar reformats were obtained from the axial data set by the technologist. Radiation Dose Information: CT Dose: CTDI volume is 23.84 mGy. Dose-length product is 1430.87 mGy*cm FINDINGS: The lung bases are clear. Partially visualized heart is unremarkable. Status post cholecystectomy. Mild hepatomegaly. Otherwise, liver, spleen, pancreas and adrenal glands are unremarkable. Kidneys, ureters and urinary bladder unremarkable. Prostate is unremarkable. Stomach is unremarkable. Small bowel loops unremarkable. Appendix is unremarkable. Mild wall thickening of the ascending colon. The remainder of the large bowel is unremarkable. No evidence of intraperitoneal free air or free fluid. No evidence of aortic aneurysm. No significant lymphadenopathy. Tiny fat containing umbilical hernia. The soft tissues are unremarkable. Sclerotic focus over the left proximal femur and anterior L3 vertebral body which may represent bone islands blastic lesions not excluded. No destructive osseous lesions are noted. IMPRESSION: Mild wall thickening of the ascending colon. Correlate for mild colitis. Mild hepatomegaly. ATED BY: TRINIDAD STAPLETON DO DICTATED DATE/TIME: 07/16/242126 SIGNED BY: TRINIDAD STAPLETON DO SIGNED DATE/TIME: 07/16/242126 CC: Condition at Discharge: Stable Final Diagnosis/Problems List Sepsis due to colitis Acute abdominal pain with intractable nausea and vomiting likely due to acute colitis Clostridium diff infection -Toxigenic C diff positive. Acute gastroenteritis likely due to colitis #Marijuana induced acute intractable nausea and vomiting #Lactic acidosis likely from dehydration #Leukocytosis likely from colitis #Obesity BMI 35.0 Discharge Disposition: Home Discharge Instruct/Medications Diet: Regular Follow Up/Referral: Avoid dehydration and nephrotoxic drugs Please follow up with the primary care physician in 1 week Contact recreation for 2 weeks Medications: Continue vancomycin 125 mg p.o. q.6h for 8 days Florastor 250 mg p.o. daily for 3 weeks Pantoprazole 20 mg p.o. daily for 2 weeks 4 mg q.6h PRN for 5 days Discharge Statement: "Patient was advised to return to the ER or call 911 if any headaches, dizziness, shortness of breath, chest pain, abdominal pain, bleeding, fevers, or worsening of medical condition. Patient was counseled about treatment plan, medications, possible side effects, patientverbalized understanding. All questions were answered to the best of my ability. This discharge took greater then 30 minutes in planning, reviewing documentation, counseling the patient, and discussing with other team members." ASSESSMENT ASSESSMENT Assessment Date of Service: Jul 20, 2024 Billing Provider: NIDHI WADSWORTH MD Common Visit Codes: [id number] DISCH DAY >30min LEONIDES ISAAC Jul 20, 2024 10:41 NIDHI WADSWORTH MD July 27, 2024 22:25
--- NOTE | 2024-07-20 12:56 | DVHDSRES ---
Discharge Summary Date of Admission Resident Creating Document: LEONIDES ISAAC RESIDENT Jul 17, 2024 at 01:38 Date of Discharge: Jul 20, 2024 Labs/Diagnostic Data: Laboratory Results Test 07/20/24 04:42 07/19/24 08:53 07/18/24 06:59 07/18/24 04:38 White Blood Count 9.4 10^3/uL (4.4-10.8) Red Blood Count 4.91 10^6/uL (4.5-5.90) Hemoglobin 15.2 g/dL (13.5-17.5) Hematocrit 44.0 % (41.0-53.0) Mean Corpuscular Volume 89.6 fL (80.0-100.0) Mean Corpuscular Hemoglobin 31.0 pg (28.0-32.0) Mean Corpuscular Hemoglobin Concent 34.6 g/dL (32.0-36.0) Red Cell Distribution Width 13.7 % (11.8-14.3) Platelet Count 251 10^3/uL (140-450) Mean Platelet Volume 9.4 fL (6.9-10.8) Neutrophils (%) (Auto) 59.0 % (37.0-80.0) Lymphocytes (%) (Auto) 31.4 % (10.0-50.0) Monocytes (%) (Auto) 7.6 % (0.0-12.0) Eosinophils (%) (Auto) 1.6 % (0.0-7.0) Basophils (%) (Auto) 0.4 % (0.0-2.0) Neutrophils # (Auto) 5.5 10 ^3/uL (1.6-8.6) Lymphocytes # (Auto) 2.9 10 ^3/uL (0.4-5.4) Monocytes # (Auto) 0.7 10 ^3/uL (0-1.3) Eosinophils # (Auto) 0.1 10 ^3/uL (0-0.8) Basophils # (Auto) 0 10 ^3/uL (0-0.2) Nucleated Red Blood Cells 0.0 % Sodium Level 143 mmol/L (136-145) Potassium Level 3.3 mmol/L (3.5-5.1) Chloride Level 106 mmol/L (98-107) Carbon Dioxide Level 28 mmol/L (20-31) Anion Gap 9 (5-15) Blood Urea Nitrogen 5 mg/dL (9-23) Creatinine 0.95 mg/dL (0.700-1.30) Glomerular Filtration Rate Calc 113 mL/min (>90) BUN/Creatinine Ratio 5.3 (10.0-20.0) Serum Glucose 91 mg/dL (74-106) Calcium Level 9.7 mg/dL (8.7-10.4) Magnesium Level 1.7 mg/dL (1.6-2.6) Lactic Acid Level 1.6 mmol/L (0.4-2.0) Hemoglobin A1c 4.7 % A1C (<5.7) Thyroid Stimulating Hormone (TSH) 4.25 uIU/mL (0.55-4.78) Test 07/17/24 10:16 07/17/24 05:50 07/16/24 21:04 Total Bilirubin 0.7 mg/dL (0.2-1.0) Aspartate Amino Transferase (AST) 18 U/L (13-40) Alanine Aminotransferase (ALT) 32 U/L (7-40) Alkaline Phosphatase 76 U/L (46-116) Total Protein 7.9 g/dL (5.7-8.2) Albumin 4.7 g/dL (3.2-4.8) Plasma/Serum Blood Alcohol < 3.0 mg/dL (<10) Urine Color Colorless (Yellow) Urine Clarity Clear (Clear) Urine pH 6.0 (5.0-9.0) Urine Specific [place] 1.011 (1.001-1.035) Urine Protein Negative (Negative) Urine Ketones Negative (Negative) Urine Blood Negative /uL (Negative) Urine Nitrite Negative (Negative) Urine Bilirubin Negative (Negative) Urine Urobilinogen Normal mg/dL (Negative) Urine Leukocyte Esterase Negative /uL (Negative) Urine RBC <1 /hpf (0 - 3) Urine Microscopic WBC 1 /HPF (0-3) Urine Squamous Epithelial Cells None seen /hpf (<5) Urine Bacteria None seen /hpf (None Seen) Urine Glucose Normal mg/dL (Normal) Urine Opiates Screen Neg (NEGATIVE) Urine Fentanyl Screen Neg (NEGATIVE) Urine Barbiturates Screen Neg (NEGATIVE) Urine Phencyclidine Screen Neg (NEGATIVE) Urine Amphetamines Screen Neg (NEGATIVE) Urine Benzodiazepines Screen Neg (NEGATIVE) Urine Cocaine Screen Neg (NEGATIVE) Urine Cannabinoids Screen Pos (NEGATIVE) Troponin I High Sensitivity < 3 ng/L (</=54) Lipase 31 U/L (12-53) Other Laboratory Tests 07/20/24 04:42 Operations or Procedures [facility] [address] [facility] [address] Ph: [phone] DIAGNOSTIC IMAGING Diagnostic Imaging Report : [id number] Signed PATIENT: LON DONG ACCT: [id number] UNIT: [id number] : 1995 LOC: ER ROOM / BED: / AGE / SEX: 29 / M ADM STATUS: REG ER SERVICE 28 ORDERING PHYSICIAN: GERARD SOLARES MD PROCEDURE(s): ABPL - CT AB PEL WO CON-NO ORAL OR IV REASON: abd pain n/v/d ORDER NUMBER(s): [id number], ACCESSION NUMBER(s): [id number] Exam: CT CT AB PEL WO CON-NO ORAL OR IV History: abd pain n/v/d Comparison Study: 06/12/2024 TECHNIQUE: Multidetector CT of the abdomen and pelvis without IV contrast. Axial, coronal and sagittal multiplanar reformats were obtained from the axial data set by the technologist. Radiation Dose Information: CT Dose: CTDI volume is 23.84 mGy. Dose-length product is 1430.87 mGy*cm FINDINGS: The lung bases are clear. Partially visualized heart is unremarkable. Status post cholecystectomy. Mild hepatomegaly. Otherwise, liver, spleen, pancreas and adrenal glands are unremarkable. Kidneys, ureters and urinary bladder unremarkable. Prostate is unremarkable. Stomach is unremarkable. Small bowel loops unremarkable. Appendix is unremarkable. Mild wall thickening of the ascending colon. The remainder of the large bowel is unremarkable. No evidence of intraperitoneal free air or free fluid. No evidence of aortic aneurysm. No significant lymphadenopathy. Tiny fat containing umbilical hernia. The soft tissues are unremarkable. Sclerotic focus over the left proximal femur and anterior L3 vertebral body which may represent bone islands blastic lesions not excluded. No destructive osseous lesions are noted. IMPRESSION: Mild wall thickening of the ascending colon. Correlate for mild colitis. Mild hepatomegaly. ATED BY: TRINIDAD STAPLETON DO DICTATED DATE/TIME: 07/16/242126 SIGNED BY: TRINIDAD STAPLETON DO SIGNED DATE/TIME: 07/16/242126 CC: Condition at Discharge: Stable Final Diagnosis/Problems List Sepsis due to colitis Acute abdominal pain with intractable nausea and vomiting likely due to acute colitis Clostridium diff infection -Toxigenic C diff positive. Acute gastroenteritis likely due to colitis #Marijuana induced acute intractable nausea and vomiting #Lactic acidosis likely from dehydration #Leukocytosis likely from colitis #Obesity BMI 35.0 Discharge Disposition: Home Discharge Instruct/Medications Diet: Regular Follow Up/Referral: Avoid dehydration and nephrotoxic drugs Please follow up with the primary care physician in 1 week Contact recreation for 2 weeks Medications: Continue vancomycin 125 mg p.o. q.6h for 8 days Florastor 250 mg p.o. daily for 3 weeks Pantoprazole 20 mg p.o. daily for 2 weeks 4 mg q.6h PRN for 5 days Discharge Statement: "Patient was advised to return to the ER or call 911 if any headaches, dizziness, shortness of breath, chest pain, abdominal pain, bleeding, fevers, or worsening of medical condition. Patient was counseled about treatment plan, medications, possible side effects, patientverbalized understanding. All questions were answered to the best of my ability. This discharge took greater then 30 minutes in planning, reviewing documentation, counseling the patient, and discussing with other team members." ASSESSMENT ASSESSMENT Assessment Sepsis due to colitisAcute abdominal pain with intractable nausea and vomiting likely due toacute colitisClostridium diff infection -Toxigenic C diff positive.Acute gastroenteritis likely due to colitis#Marijuana induced acute intractable nausea and vomiting#Lactic acidosis likely from dehydration#Leukocytosis likely from colitis#Obesity BMI 35.0 LEONIDES ISAAC RESIDENT Jul 20, 2024 12:56
[2024-07-20 13:00] VITALS: BP 105/51; PULSE 74; RESP 19; TEMP 97.7; O2SAT 97
[2024-07-20] MEDS ORDERED: VANC250PO PO (13:07)
[2024-07-20] MEDS ORDERED: ZOFR4T PO (13:09)
[2024-07-20] MEDS ORDERED: SACC250C PO (13:09)
== END 2024-07-20 17:00 | disposition home or self-care (01) | DRG 720 ==
LOC: ER 20:03 → OVERFLOW 07-17 01:03 → CENTRAL 07-17 18:08
PROVIDERS: ADMIT Student in an Organized Health Care Education/Training Program; ATTEND Emergency Medicine
DX: A41.9 Sepsis, unspecified organism (principal); E87.20 Acidosis, unspecified; A04.72 Enterocolitis due to Clostridium difficile, not specified as recurrent; Z68.35 Body mass index [BMI] 35.0-35.9, adult; E66.9 Obesity, unspecified; M41.9 Scoliosis, unspecified; E86.0 Dehydration; F12.90 Cannabis use, unspecified, uncomplicated; Z90.49 Acquired absence of other specified parts of digestive tract
CPT/HCPCS: 36415; 74176; 80048; 80053; 80307; 80320; 81001; 83036; 83605; 83690; 83735; 84443; 84484; 85025; 87040; 87045; 87427; 87493; 96360; G0378; J2405; J2470; J2543; J3490

== ENCOUNTER 2024-10-15 21:00 | Emergency (ER) | payer MEDICAID ==
[~2024-10-15] VITALS: Ht 172.7 cm; Wt 111.4 kg
[~2024-10-15 21:00] MED LIST changes: -AUG875T PO; -PANT40TA2 PO; +SACC250C PO; +VANC250PO PO
--- NOTE | 2024-10-15 21:47 | ED.PDOC ---
History of Present Illness HPI Comments 29-year-old male presents with a chief complaint of abdominal pain with associated nausea and vomiting. Patient states that he has been seen multiple times at this ER for similar chief complaint and has been scoped by GI which showed inconclusive results whether it was some type of colitis or cyclic vomiting. Patient states that his pain is localized to diffuse abdomen, describes as sharp, and rates his pain a 10/10. Patient states that this abdomen pain episode is the worst he has had it. Chief Complaint: Abdominal Pain Time Seen by MD: 21:41 Primary Care Provider: ARLEEN Reviewed Notes: Medications, Allergies Allergies: Coded Allergies: NO KNOWN ALLERGIES (Unverified , 02/05/21) Home Meds Active Scripts Ondansetron Odt 4MG Tab (ZOFRAN PO) 4 Mg Tb, 4 MG PO Q6HR for 5 Days, #20 TAB ODT TAB-DISSOLVE IN MOUTH, THEN SWALLOW Prov:LEONIDES ISAAC RESIDENT 07/20/24 Yeast (S. Boulardii)(S. Cerevi (Florastor) 250 Mg Cap, 250 MG PO DAILY for 21 Days, #21 CAP Prov:LEONIDES ISAAC RESIDENT 07/20/24 Vancomycin Hcl (Vancomycin Po) 250 Mg So, 125 MG PO Q6HR for 9 Days, #36 CAP Prov:LEONIDES ISAAC RESIDENT 07/20/24 Sucralfate (Carafate) 1 Gm/10 Ml Cristal, 10 ML PO BID for 30 Days, #600 ML 0 Refills Prov:ANAYELI CARIAS RESIDENT 06/15/24 Reported Medications Buprenorphine (Butrans) 15 Mcg/Hr Dis, 1 PATCH TD QWEEKLY for 28 Days, #4 06/13/24 Acetaminophen W/ Codeine (Acetaminophen/Codeine) 1 Tab Tab, 1 TAB PO Q12HR PRN for MODERATE PAIN (4-6 PAIN SCALE) for 30 Days, #60 06/13/24 Lidocaine (Lidocaine) 5 % Pad, 1-2 PATCH TOP DAILY for 30 Days, #60 UNWRAP AND APPLY 1 TO 2 PATCHES EXTERNALLLY TO DRY INTACT SKIN DAILY EVERY 12 HOURS ON AND EVERY 12 HOURS OFF. 06/13/24 Verapamil Hcl (Verapamil Hcl Er) 240 Mg Cap, 1 CAP PO DAILY 08/10/22 Information Source: Patient Mode of Arrival: Ambulatory Severity: Moderate Timing: Days Duration: Intermittent Prehospital treatment: None Past Medical History Surgical History: Cholecystectomy Family History Family History: Reviewed,noncontributory to illness Social History Smoker: Non-Smoker Alcohol: Denies ETOH Use Drugs: Marijuana Lives In: Home Constitutional: denies: chills, diaphoresis, fatigue, fever, malaise, sweats, weakness, others EENTM: denies: blurred vision, double vision, ear bleeding, ear discharge, ear drainage, ear pain, ear ringing, eye pain, eye redness, hearing loss, mouth pain, mouth swelling, nasal discharge, nose bleeding, nose congestion, nose pain, photophobia, tearing, throat pain, throat swelling, voice changes, others Respiratory: denies: cough, hemoptysis, orthopnea, SOB at rest, shortness of breath, SOB with excertion, stridor, wheezing, others Cardiovascular: denies: chest pain, dizzy spells, diaphoresis, Dyspnea on exertion, edema, irregular heart beat, left arm pain, lightheadedness, palpitations, PND, syncope, others Gastrointestinal: reports: abdominal pain, nausea, vomiting; denies: abdomen distended, blood streaked bowels, constipated, diarrhea, dysphagia, difficulty swallowing, hematemesis, melena, poor appetite, poor fluid intake, rectal bleeding, rectal pain, others Genitourinary: denies: burning, dysuria, flank pain, frequency, hematuria, incontinence, penile discharge, penile sore, pain, testicle pain, testicle swelling, urgency, others Neurological: denies: dizziness, fainting, headache, left sided numbness, left sided weakness, numbness, paresthesia, pre-existing deficit, right sided numbness, right sided weakness, seizure, speech problems, tingling, tremors, weakness, others Musculoskeletal: denies: back pain, gout, joint pain, joint swelling, muscle pain, muscle stiffness, neck pain, others Integumetry: denies: bruises, change in color, change in hair/nails, dryness, laceration, lesions, lumps, rash, wounds, others Allergic/Immunocompromised: denies: Difficulty Healing, Frequent Infections, Hives, Itching, others Hematologic/Lymphatic: denies: anemia, blood clots, easy bleeding, easy bruising, swollen glands, others Endocrine: denies: excessive hunger, excessive sweating, excessive thirst, excessive urination, flushing, intolerance to cold, intolerance to heat, unexplained weight gain, unexplained weight loss, others Psychiatric: denies: anxiety, bipolar disorder, depression, hopeless, panic disorder, schizophrenia, sleepless, suicidal, others All Other Systems: Reviewed and Negative Physical Exam General Appearance: Normal, Severe Distress HEENT: Normal ENT Inspection, Pharynx Normal, TMs Normal Neck: Full Range of Motion, Non-Tender, Normal, Normal Inspection Respiratory: Chest Non-Tender, Lungs Clear, No Accessory Muscle Use, No Respiratory Distress, Normal Breath Sounds Cardiovascular: No Edema, No JVD, No Murmur, No Gallop, Normal Peripheral Pulses, Regular Rate/Rhythm Breast Exam: Deferred Gastrointestinal: Diffuse, No Organomegaly, No Pulsatile Mass, Normal Bowel Sounds, Soft, Tenderness Genitalia: Deferred Pelvic: Deferred Rectal: Deferred Extremities: No calf tenderness, Normal capillary refill, Normal inspection, Normal range of motion, Non-tender, No pedal edema Musculoskeletal : Apperance: Normal Neurologic: Alert, glass enamel mixer II-XII nml as Tested, No Motor Deficits, Normal Affect, Normal Mood, No Sensory Deficits Cerebellar Function: Normal Reflexes: Normal Skin: Dry, Normal Color, Warm Lymphatic: No Adenopathy Was a procedure done? Was a procedure done?: No Differential Dx Considerations may include: Gastroparesis, cyclical vomiting, gastroenteritis, traveler's diarrhea, SBO X-Ray, Labs, Meds, VS Vital Signs Date Time Temp Pulse Resp B/P (MAP) Pulse Ox O2 Delivery O2 Flow Rate FiO2 10/15/24 21:37 97.7 81 20 149/88 (108) 100 97.7 Lab Test 10/15/24 21:48 10/15/24 21:45 Range/Units Urine Color Yellow Yellow Urine Clarity Clear Clear Urine pH 5.5 5.0-9.0 Urine Specific [place] 1.019 1.001-1.035 Urine Protein Trace H Negative Urine Ketones 2+ H Negative Urine Blood Negative Negative /uL Urine Nitrite Negative Negative Urine Bilirubin Negative Negative Urine Urobilinogen Normal Negative mg/dL Urine Leukocyte Esterase Negative Negative /uL Urine RBC None seen 0 - 3 /hpf Urine Microscopic WBC < 1 0-3 /HPF Urine Squamous Epithelial Cells Few <5 /hpf Urine Bacteria None seen None Seen /hpf Urine Hyaline Casts Few 0 - 2 /lpf Urine Mucus Few None Seen Urine Glucose Normal Normal mg/dL White Blood Count 16.0 H 4.4-10.8 10^3/uL Red Blood Count 5.55 4.5-5.90 10^6/uL Hemoglobin 17.5 13.5-17.5 g/dL Hematocrit 49.8 41.0-53.0 % Mean Corpuscular Volume 89.7 80.0-100.0 fL Mean Corpuscular Hemoglobin 31.5 28.0-32.0 pg Mean Corpuscular Hemoglobin Concent 35.1 32.0-36.0 g/dL Red Cell Distribution Width 13.5 11.8-14.3 % Platelet Count 302 140-450 10^3/uL Mean Platelet Volume 9.9 6.9-10.8 fL Neutrophils (%) (Auto) 80.9 H 37.0-80.0 % Lymphocytes (%) (Auto) 15.2 10.0-50.0 % Monocytes (%) (Auto) 3.3 0.0-12.0 % Eosinophils (%) (Auto) 0.4 0.0-7.0 % Basophils (%) (Auto) 0.2 0.0-2.0 % Neutrophils # (Auto) 13.0 H 1.6-8.6 10 ^3/uL Lymphocytes # (Auto) 2.4 0.4-5.4 10 ^3/uL Monocytes # (Auto) 0.5 0-1.3 10 ^3/uL Eosinophils # (Auto) 0.1 0-0.8 10 ^3/uL Basophils # (Auto) 0 0-0.2 10 ^3/uL Nucleated Red Blood Cells 0.2 % Sodium Level 141 136-145 mmol/L Potassium Level 4.3 3.5-5.1 mmol/L Chloride Level 106 98-107 mmol/L Carbon Dioxide Level 22 20-31 mmol/L Anion Gap 13 5-15 Blood Urea Nitrogen 9 9-23 mg/dL Creatinine 0.96 0.700-1.30 mg/dL Glomerular Filtration Rate Calc 111 >90 mL/min BUN/Creatinine Ratio 9.4 L 10.0-20.0 Serum Glucose 145 H 74-106 mg/dL Calcium Level 10.2 8.7-10.4 mg/dL Total Bilirubin 0.6 0.2-1.0 mg/dL Aspartate Amino Transferase (AST) 50 H 13-40 U/L Alanine Aminotransferase (ALT) 83 H 7-40 U/L Alkaline Phosphatase 112 46-116 U/L Total Protein 8.8 H 5.7-8.2 g/dL Albumin 5.3 H 3.2-4.8 g/dL Lipase 32 12-53 U/L X-Ray, Labs, Meds, VS Comment Imaging: X-rays and CT scans were reviewed and interpreted by this provider, imaging shows no fractures and no pathological disease. Pending radiology review. Laboratory: Labs reviewed and interpreted by this provider. No significant abnormalities noted. Patient has prior medical visits reviewed. Med reconciliation performed Vital signs reviewed Time of 1ST Reevaluation: 22:12 Reevaluation 1ST: Unchanged Patient Education/Counseling: Diagnosis, Treatment, Need For Follow Up (Follow up with the PCP in the next available appointment. 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 Electronically submitted by Peyman Brown ([email or web address]). ANNE-MARIE MAXWELL Oct 15, 2024 21:47
[2024-10-15 22:09] LABS: Hematocrit 49.8 % (41.0-53.0); Hemoglobin 17.5 g/dL (13.5-17.5); Mean Corpuscular Hemoglobin 31.5 pg (28.0-32.0); Mean Corpuscular Volume 89.7 fL (80.0-100.0); Nucleated Red Blood Cells % 0.2 %
--- NOTE | 2024-10-15 22:25 | DVH ---
COMPUTERIZED TOMOGRAPHY ABDOMEN AND PELVIS WITHOUT CONTRAST REASON FOR EXAM: ABD PAIN COMPARISON: CT CT AB PEL WO CON-NO ORAL OR IV on DOS: 07/16/24, CT CT AB PEL WO CON-NO ORAL OR IV on D OS: 06/12/24, CT CT AB PEL WO CON-NO ORAL OR IV on DOS: 07/18/23, CT CT AB PEL WO CON-NO ORAL OR IV on DOS: 06/18/23, CT ABD PELVIS WO CONTRAST on DOS: 06/18/21 TECHNIQUE: Spiral scans were acquired from the diaphragm to the symphysis pubis without intravenous c ontrast administration. 2-D coronal and sagittal reformatted images were provided. Radiation optimiza tion: All CT scans at this facility use at least one of these dose optimization techniques: Automated exposure control mA and/or kV adjustment per patient size (includes targeted exams where dose is mat ched to clinical indication) or iterative reconstruction. RADIATION DOSE: CTDI: 25 mGy DLP: 1280 mGy-cm FINDINGS: The visualized lung bases are grossly clear. There is no pleural effusion. There is no pericardial ef fusion. The spleen is not enlarged. The liver is normal in size and contour. Evaluation of the abdominal or [place] is suboptimal in the absence of intravenous contrast. The gallbladder is surgically absent. Unen hanced appearance of the pancreas is unremarkable. The adrenal glands are normal. The kidneys are sim ilar in size. There is no hydronephrosis of either kidney. There is no renal, ureteral, or bladder c alculus. The urinary bladder is unremarkable. There is no abdominal aortic aneurysm. There is no pat hologic lymphadenopathy by size criteria. The prostate and seminal vesicles are within normal limits. There is no significant colonic stool burden. The appendix is normal. No free fluid is identified. There is no pathologic distention of the small bowel. No acute osseous abnormality is identified. IMPRESSION: No acute finding in the abdomen or pelvis to explain the patient's pain. Normal appendix Prior cholecystectomy No evidence of bowel obstruction.
[2024-10-15 22:26] LABS: Alkaline Phosphatase 112 U/L (46-116); Anion Gap 13 (5-15); BUN/Creatinine Ratio 9.4 (10.0-20.0); Calcium 10.2 mg/dL (8.7-10.4); Carbon Dioxide 22 mmol/L (20-31); Chloride 106 mmol/L (98-107); Lipase 32 U/L (12-53); Potassium 4.3 mmol/L (3.5-5.1); Sodium 141 mmol/L (136-145)
[2024-10-15 22:27] LABS: Alanine Aminotransferase 83 U/L (7-40); Albumin 5.3 g/dL (3.2-4.8); Bilirubin, Total 0.6 mg/dL (0.2-1.0); Blood Urea Nitrogen 9 mg/dL (9-23); Glucose 145 mg/dL (74-106); Total Protein 8.8 g/dL (5.7-8.2)
[2024-10-15 23:27] LABS: Urine Protein, UAD TRACE (Negative)
[2024-10-15 23:40] VITALS: PULSE 88; RESP 18; O2SAT 99
[2024-10-15] MEDS: ONDANSETRON HCL 4 MG/2 ML VIAL IV ONE (23:45)
[2024-10-15] MEDS: LIDOCAINE VISCOUS 2% 15ML UD MT ONE (23:45)
[2024-10-15] MEDS: MORPHINE SULFATE 4 MG/ML SYR/VIAL IV ONE (23:45)
[2024-10-15] MEDS: MAALOX PLUS or MAALOX 30 ML PO ONE (23:55)
[2024-10-16] MEDS: SODIUM CHLORIDE 0.9% 1,000 ML IV ONE (01:04)
[2024-10-16 01:15] VITALS: BP 156/77; PULSE 65; RESP 21; TEMP 97.5; O2SAT 99
== END 2024-10-16 01:16 | disposition home or self-care (01) ==
LOC: ER 21:00
DX: K29.70 Gastritis, unspecified, without bleeding (principal); R10.9 Unspecified abdominal pain; F12.90 Cannabis use, unspecified, uncomplicated; Z90.49 Acquired absence of other specified parts of digestive tract; Z79.899 Other long term (current) drug therapy
CPT/HCPCS: 36415; 74176; 80053; 81001; 83690; 85025; 96374; 96375; 99285; J2270; J2405; J7030

== ENCOUNTER 2024-10-17 13:37 | Inpatient (IN) | payer MEDICAID ==
[~2024-10-17] VITALS: Ht 172.7 cm; Wt 113.6 kg
--- NOTE | 2024-10-17 14:09 | ED.PDOC ---
GI ASSESSMENT HPI Comments A 29 Y/O OBESE M PRESENTS WITH ABDOMINAL PAIN, NAUSEA, VOMITING, BODY ACHES, AND CHILLS. PATIENT REPORTS ON SYMPTOMS BEING CHRONIC FOLLOWING THE REMOVAL OF HIS GALLBLADDER 7 YEARS AGO. PATIENT HAS BEEN EVALUATED IN ED MULTIPLE TIME FOR SYMPTOMS, WITH MOST RECENT ONE TAKING PLACE IN OCTOBER 15, 2024. PT HAD BLOOD TEST AND CT-ABD/PELVIC TEST IS WITHIN NORMAL LIMITS. BUT PATIENT STATES ON GETTING IV TREATMENT THEN AND NOT IMPROVING SINCE. HE IS UNABLE TO HOLD FOOD AND LIQUID DUE TO NAUSEA AND VOMITING. PT DENIES ANY BLOODY OF BILIOUS VOMITUS, DIARRHEA, URINARY SYMPTOMS, FEVER, CHILLS, OR FURTHER ASSOCIATED SYMPTOMS. NO OTHER SYMPTOMS REPORTED AT THIS TIME OF CARE. Time Seen by MD: 01:50 Primary Care Provider: ARLEEN Reviewed Notes: Nurses Notes, Medications, Allergies Allergies: Coded Allergies: NO KNOWN ALLERGIES (Unverified , 02/05/21) Home Meds Active Scripts Ondansetron Odt 4MG Tab (ZOFRAN PO) 4 Mg Tb, 4 MG PO Q6HR for 5 Days, #20 TAB ODT TAB-DISSOLVE IN MOUTH, THEN SWALLOW Prov:LEONIDES ISAAC RESIDENT 07/20/24 Yeast (S. Boulardii)(S. Cerevi (Florastor) 250 Mg Cap, 250 MG PO DAILY for 21 Days, #21 CAP Prov:LEONIDES ISAAC RESIDENT 07/20/24 Vancomycin Hcl (Vancomycin Po) 250 Mg So, 125 MG PO Q6HR for 9 Days, #36 CAP Prov:LEONIDES ISAAC RESIDENT 07/20/24 Sucralfate (Carafate) 1 Gm/10 Ml Cristal, 10 ML PO BID for 30 Days, #600 ML 0 Refills Prov:ANAYELI CARIAS RESIDENT 06/15/24 Reported Medications Buprenorphine (Butrans) 15 Mcg/Hr Dis, 1 PATCH TD QWEEKLY for 28 Days, #4 06/13/24 Acetaminophen W/ Codeine (Acetaminophen/Codeine) 1 Tab Tab, 1 TAB PO Q12HR PRN for MODERATE PAIN (4-6 PAIN SCALE) for 30 Days, #60 06/13/24 Lidocaine (Lidocaine) 5 % Pad, 1-2 PATCH TOP DAILY for 30 Days, #60 UNWRAP AND APPLY 1 TO 2 PATCHES EXTERNALLLY TO DRY INTACT SKIN DAILY EVERY 12 HOURS ON AND EVERY 12 HOURS OFF. 06/13/24 Verapamil Hcl (Verapamil Hcl Er) 240 Mg Cap, 1 CAP PO DAILY 08/10/22 Information Source: Patient Mode of Arrival: Ambulatory Timing: Days Duration: Since onset, Days Prehospital treatment: Treatment Quality: Aching, Cramping, Colicky Vomitus: Food Particles Stool: Brown Severity: Moderate Recent: None Recent Hx of: Other (GASTRITIS) Pain Location: Epigastric Modifying Factors: Nothing Associated sign and symptoms: Nausea, Vomiting, Abdominal Pain, None Past Medical History PAST MEDICAL HISTORY: Anxiety Past Medical History (Other): GASTRITIS Surgical History: Cholecystectomy Family History Family History: Reviewed,noncontributory to illness Social History Smoker: Non-Smoker Alcohol: Denies ETOH Use Drugs: Marijuana Lives In: Home Constitutional: reports: chills, fatigue, others (ANXIETY ); denies: diaphoresis, fever, malaise, sweats, weakness EENTM: denies: blurred vision, double vision, ear bleeding, ear discharge, ear drainage, ear pain, ear ringing, eye pain, eye redness, hearing loss, mouth pain, mouth swelling, nasal discharge, nose bleeding, nose congestion, nose pain, photophobia, tearing, throat pain, throat swelling, voice changes, others Respiratory: denies: cough, hemoptysis, orthopnea, SOB at rest, shortness of breath, SOB with excertion, stridor, wheezing, others Cardiovascular: denies: chest pain, dizzy spells, diaphoresis, Dyspnea on exertion, edema, irregular heart beat, left arm pain, lightheadedness, palpitations, PND, syncope, others Gastrointestinal: reports: abdominal pain, nausea, vomiting; denies: abdomen distended, blood streaked bowels, constipated, diarrhea, dysphagia, difficulty swallowing, hematemesis, melena, poor appetite, poor fluid intake, rectal bleedi ng, rectal pain, others Genitourinary: denies: burning, dysuria, flank pain, frequency, hematuria, incontinence, penile discharge, penile sore, pain, testicle pain, testicle swelling, urgency, others Neurological: denies: dizziness, fainting, headache, left sided numbness, left sided weakness, numbness, paresthesia, pre-existing deficit, right sided numbness, right sided weakness, seizure, speech problems, tingling, tremors, weakness, others Musculoskeletal: reports: others (body aches ); denies: back pain, gout, joint pain, joint swelling, muscle pain, muscle stiffness, neck pain Integumetry: denies: bruises, change in color, change in hair/nails, dryness, laceration, lesions, lumps, rash, wounds, others Allergic/Immunocompromised: denies: Difficulty Healing, Frequent Infections, Hives, Itching, others Hematologic/Lymphatic: denies: anemia, blood clots, easy bleeding, easy bruising, swollen glands, others Endocrine: denies: excessive hunger, excessive sweating, excessive thirst, excessive urination, flushing, intolerance to cold, intolerance to heat, unexplained weight gain, unexplained weight loss, others Psychiatric: reports: anxiety; denies: bipolar disorder, depression, hopeless, panic disorder, schizophrenia, sleepless, suicidal, others All Other Systems: Reviewed and Negative Physical Exam General Appearance: Moderate Distress, Normal, Other (ANXIETY ) HEENT: Normal ENT Inspection, PERRL/EOMI, Pharynx Normal, TMs Normal Neck: Full Range of Motion, Non-Tender, Normal, Normal Inspection Respiratory: Chest Non-Tender, Lungs Clear, No Accessory Muscle Use, No Respiratory Distress, Normal Breath Sounds Cardiovascular: No Edema, No JVD, No Murmur, No Gallop, Normal Peripheral Pulses, Regular Rate/Rhythm Breast Exam: Deferred Gastrointestinal: Epigastric, No Organomegaly, No Pulsatile Mass, Normal Bowel Sounds, Soft, Tenderness (TENDERNESS ON EPIGASTRIC AND MIDDLE ABD, NO GUARDING AND REBOUND TENDERNESS. ) Genitalia: Deferred Pelvic: Normal External Exam Rectal: Deferred Extremities: No calf tenderness, Normal capillary refill, Normal inspection, Normal range of motion, Non-tender, No pedal edema Musculoskeletal : Apperance: Normal Neurologic: Alert, meat curer II-XII nml as Tested, No Motor Deficits, Normal Affect, Normal Mood, No Sensory Deficits Cerebellar Function: Normal Reflexes: Normal Skin: Dry, Normal Color, Warm Peripheral Pulses: 2+ carotid (R), 2+ carotid (L) Lymphatic: No Adenopathy Was a procedure done? Was a procedure done?: No GI differential Dx Differential Diagnosis: Bowel Obstruction, Cholangitis, Gastritis/PUD, Gastroenteritis, Inflammatory BD, Pancreatitis, UTI, Urolithiasis, Dehydration, Drug toxicity, Electrolyte Imbalance, Food Poisoning X-Ray, Labs, Meds, VS Vital Signs Date Time Temp Pulse Resp B/P (MAP) Pulse Ox O2 Delivery O2 Flow Rate FiO2 10/17/24 14:51 98.8 81 21 146/81 (102) 96 98.8 10/17/24 14:34 78 14 96 Room Air* 0 21 10/17/24 13:47 98.7 92 24 127/92 (104) 96 98.7 Lab Test 10/17/24 14:01 10/17/24 13:48 Range/Units White Blood Count 17.4 H 4.4-10.8 10^3/uL Red Blood Count 5.41 4.5-5.90 10^6/uL Hemoglobin 16.9 13.5-17.5 g/dL Hematocrit 48.0 41.0-53.0 % Mean Corpuscular Volume 88.6 80.0-100.0 fL Mean Corpuscular Hemoglobin 31.2 28.0-32.0 pg Mean Corpuscular Hemoglobin Concent 35.2 32.0-36.0 g/dL Red Cell Distribution Width 13.5 11.8-14.3 % Platelet Count 306 140-450 10^3/uL Mean Platelet Volume 9.6 6.9-10.8 fL Neutrophils (%) (Auto) 79.9 37.0-80.0 % Lymphocytes (%) (Auto) 15.5 10.0-50.0 % Monocytes (%) (Auto) 4.1 0.0-12.0 % Eosinophils (%) (Auto) 0.2 0.0-7.0 % Basophils (%) (Auto) 0.3 0.0-2.0 % Neutrophils # (Auto) 13.9 H 1.6-8.6 10 ^3/uL Lymphocytes # (Auto) 2.7 0.4-5.4 10 ^3/uL Monocytes # (Auto) 0.7 0-1.3 10 ^3/uL Eosinophils # (Auto) 0 0-0.8 10 ^3/uL Basophils # (Auto) 0.1 0-0.2 10 ^3/uL Nucleated Red Blood Cells 0.4 % Sodium Level 141 136-145 mmol/L Potassium Level 3.4 L 3.5-5.1 mmol/L Chloride Level 104 98-107 mmol/L Carbon Dioxide Level 21 20-31 mmol/L Anion Gap 16 H 5-15 Blood Urea Nitrogen 14 9-23 mg/dL Creatinine 1.00 0.700-1.30 mg/dL Glomerular Filtration Rate Calc 106 >90 mL/min BUN/Creatinine Ratio 14.0 10.0-20.0 Serum Glucose 128 H 74-106 mg/dL Calcium Level 10.8 H 8.7-10.4 mg/dL Total Bilirubin 1.0 0.2-1.0 mg/dL Aspartate Amino Transferase (AST) 34 13-40 U/L Alanine Aminotransferase (ALT) 61 H 7-40 U/L Alkaline Phosphatase 89 46-116 U/L Total Protein 8.8 H 5.7-8.2 g/dL Albumin 5.4 H 3.2-4.8 g/dL Lipase 62 H 12-53 U/L Plasma/Serum Blood Alcohol 3.3 <10 mg/dL Urine Color Yellow Yellow Urine Clarity Clear Clear Urine pH 6.0 5.0-9.0 Urine Specific [place] 1.042 H 1.001-1.035 Urine Protein 2+ H Negative Urine Ketones 4+ H Negative Urine Blood Trace H Negative /uL Urine Nitrite Negative Negative Urine Bilirubin Negative Negative Urine Urobilinogen Normal Negative mg/dL Urine Leukocyte Esterase Negative Negative /uL Urine RBC 7 0 - 3 /hpf Urine Microscopic WBC 1 0-3 /HPF Urine Squamous Epithelial Cells None seen <5 /hpf Urine Calcium Oxalate Crystals Few None Seen Urine Bacteria None seen None Seen /hpf Urine Mucus Few None Seen Urine Glucose Normal Normal mg/dL Urine Opiates Screen Pos NEGATIVE Urine Fentanyl Screen Pos NEGATIVE Urine Barbiturates Screen Neg NEGATIVE Urine Phencyclidine Screen Neg NEGATIVE Urine Amphetamines Screen Neg NEGATIVE Urine Benzodiazepines Screen Neg NEGATIVE Urine Cocaine Screen Neg NEGATIVE Urine Cannabinoids Screen Pos NEGATIVE Current Medications Medications (Trade) Dose Ordered Sig/Makeda Route Start Time Stop Time Status Last Admin Sodium Chloride 1,000 ml @ 1,000 mls/hr Q1H ONCE IV 10/17/24 14:00 10/17/24 14:59 DC 10/17/24 14:24 Metoclopramide HCl (Reglan Injection) 10 mg ONCE ONCE IV 10/17/24 14:00 10/17/24 14:01 DC 10/17/24 14:24 Famotidine (Pepcid Injection) 20 mg ONCE ONCE IV 10/17/24 14:00 10/17/24 14:01 DC 10/17/24 14:24 Ketorolac Tromethamine (Toradol Injection) 30 mg ONCE ONCE IV 10/17/24 14:00 10/17/24 14:01 DC 10/17/24 14:23 Diphenhydramine HCl (Benadryl Injection) 25 mg ONCE ONCE IV 10/17/24 14:00 10/17/24 14:01 DC 10/17/24 14:23 X-Ray, Labs, Meds, VS Comment ORDERED: BLOOD ALCOHOL, DRUG SCREEN, UA, LIPASE, CMP, CBC, DIPHEHYDRAMINE, K ETOROLAC, FAMOTIDINE, METOCLOPRAMIDE, IV PATIENT WAS SEEN, RECENTLY, AND DISCHARGE. WILL ADMIT, DUE TO SYMPTOMS STILL PERSISTING. TREATMENT: 2L IV REGLAN, TORADOL, BENADRYL AND ROCEPHIN IV Time of 1ST Reevaluation: 02:20 Reevaluation 1ST: Unchanged Time of 2ND Reevaluation: 16:08 Reevaluation 2ND: Unchanged Patient Education/Counseling: Diagnosis, Treatment Family Education/Counseling: Diagnosis, Treatment SEPSIS Sepsis Screen Physician Orders Heplock Iv (10/17/24 ) Ceftriaxone Ivpb Rocephin (10/17/24 16:00) NS (10/17/24 16:00) Vital Signs Date Time Temp Pulse Resp B/P (MAP) Pulse Ox O2 Delivery O2 Flow Rate FiO2 10/17/24 14:51 98.8 81 21 146/81 (102) 96 98.8 10/17/24 14:34 78 14 96 Room Air* 0 21 10/17/24 13:47 98.7 92 24 127/92 (104) 96 98.7 Laboratory Tests Test 10/17/24 14:01 White Blood Count 17.4 10^3/uL (4.4-10.8) H Medications Medications Dose Ordered Sig/Makeda Route Start Time Stop Time Status Last Admin Dose Admin Diphenhydramine HCl 25 mg ONCE ONCE IV 10/17/24 14:00 10/17/24 14:01 DC 10/17/24 14:23 Famotidine 20 mg ONCE ONCE IV 10/17/24 14:00 10/17/24 14:01 DC 10/17/24 14:24 Ketorolac Tromethamine 30 mg ONCE ONCE IV 10/17/24 14:00 10/17/24 14:01 DC 10/17/24 14:23 Metoclopramide HCl 10 mg ONCE ONCE IV 10/17/24 14:00 10/17/24 14:01 DC 10/17/24 14:24 Sodium Chloride 1,000 ml @ 1,000 mls/hr Q1H ONCE IV 10/17/24 14:00 10/17/24 14:59 DC 10/17/24 14:24 Departure 1 Departure Time of Disposition: 16:08 Impression: Primary Impression: Intractable nausea and vomiting Additional Impressions: Acute pancreatitis Qualified Codes: K85.90 - Acute pancreatitis without necrosis or infection, unspecified Failure of outpatient treatment Disposition: ADMITTED INPATIENT Admit to: Tele Condition: Serious Critical Care Note Critical Care Time?: No Stability Stability form required: Yes Unstable for transfer: Requires medication, ED Physician Assesment, Possible rapid decline Heart Score Heart Score: Heart Score Response (Comments) Value History N/A 0 EKG N/A 0 Age N/A 0 Risk Factors N/A 0 Troponin N/A 0 Total 0 I personally scribed for DEBI CHAVEZ ([email or web address]) on 10/17/24 at 14:09. Electronically submitted by Colin Rhodes [email or web address]). DEBI CHAVEZ Oct 17, 2024 14:09
[2024-10-17 14:13] LABS: Hematocrit 48.0 % (41.0-53.0); Hemoglobin 16.9 g/dL (13.5-17.5); Mean Corpuscular Hemoglobin 31.2 pg (28.0-32.0); Mean Corpuscular Volume 88.6 fL (80.0-100.0); Nucleated Red Blood Cells % 0.4 %
[2024-10-17] MEDS: KETOROLAC TROMETH 30 MG/ML 1ML VIAL IV ONE (14:23)
[2024-10-17] MEDS: diphenhdrAMINE HCL 50 MG/1 ML VL IV ONE (14:23)
[2024-10-17] MEDS: METOCLOPRAMIDE HCL 5MG/ml INJ 2ml VIAL IV ONE (14:24)
[2024-10-17] MEDS: SODIUM CHLORIDE 0.9% 1,000 ML IV ONE ×3 (14:24→19:21)
[2024-10-17] MEDS: FAMOTIDINE (10MG/ML) 2ML VL IV ONE (14:24)
[2024-10-17 14:29] LABS: Alkaline Phosphatase 89 U/L (46-116); Anion Gap 16 (5-15); BUN/Creatinine Ratio 14.0 (10.0-20.0); Blood Urea Nitrogen 14 mg/dL (9-23); Carbon Dioxide 21 mmol/L (20-31); Chloride 104 mmol/L (98-107); Sodium 141 mmol/L (136-145)
[2024-10-17 14:30] LABS: Alanine Aminotransferase 61 U/L (7-40); Albumin 5.4 g/dL (3.2-4.8); Bilirubin, Total 1.0 mg/dL (0.2-1.0); Calcium 10.8 mg/dL (8.7-10.4); Glucose 128 mg/dL (74-106); Potassium 3.4 mmol/L (3.5-5.1); Total Protein 8.8 g/dL (5.7-8.2)
[2024-10-17 14:34] VITALS: PULSE 78; RESP 14; O2SAT 96
[2024-10-17 14:49] LABS: Lipase 62 U/L (12-53)
[2024-10-17 15:37] LABS: Urine Protein, UAD 2+ (Negative)
[2024-10-17 15:38] LABS: Cannabinoid Screen, Urine Pos (NEGATIVE); Opiate Scree,Urine Pos (NEGATIVE)
[2024-10-17 15:39] LABS: Amphetamine Screen, Urine Neg (NEGATIVE); Barbiturate Scree,Urine Neg (NEGATIVE); Benzodiazephine Screen, Urine Neg (NEGATIVE); Cocaine Screen, Urine Neg (NEGATIVE); Phencyclidine Screen, Urine Neg (NEGATIVE)
[2024-10-17] MEDS: cefTRIAXone 1GM/50ML D5W 50 ML IV ONE (16:10)
[2024-10-17] MEDS: POTASSIUM CHL 20 Meq TABLET PO ONE (18:30)
[2024-10-17] MEDS: ONDANSETRON HCL 4 MG/2 ML VIAL IV PRN (18:32)
[2024-10-17] MEDS: MORPHINE SULFATE INJ 2 MG/ml SYRG IV PRN (18:33)
--- NOTE | 2024-10-17 19:46 | DVHHP2 ---
History of Present Illness Reason for Visit: Abdominal pain History of Present Illness 29-year-old male presents for evaluation of abdominal pain. Patient reports developing abdominal pain seven years ago when his gallbladder was removed. He states having episodes of diffuse abdominal pain with associated nausea and vomiting. He reports being seen on multiple occasions without a definitive answer. Past Medical History Gastritis Past Surgical History Cholecystectomy Family History Noncontributory Smoke: No ALCOHOL: none Drugs: Marijuana Lives: with Family Review of Systems Review of Systems Review of systems are currently negative otherwise addressed in HPI. Allergies: Coded Allergies: NO KNOWN ALLERGIES (Unverified , 02/05/21) Medications Current Medications Medications Dose Ordered Sig/Makeda Route Start Time Stop Time Status Last Admin Dose Admin Metronidazole 100 ml @ 100 mls/hr Q8HR IV 10/17/24 22:00 Pantoprazole Sodium 40 mg DAILY IV 10/18/24 10:00 Ondansetron HCl 4 mg Q4HP PRN IV 10/17/24 17:45 10/17/24 18:32 4 MG Morphine Sulfate 2 mg Q4HPRN PRN IV 10/17/24 17:45 10/17/24 18:33 2 MG Exam Vital Signs Vital Signs Date Time Temp Pulse Resp B/P (MAP) Pulse Ox O2 Delivery O2 Flow Rate FiO2 10/17/24 19:31 69 19 142/70 (94) 98 10/17/24 18:31 98.0 98.0 10/17/24 14:34 Room Air* 0 21 Exam Gen: 29-year-old male in mild distress, obese Skin: Warm, dry, normal color and texture, no rash. HEENT: Normocephalic atraumatic, mucous membranes moist and pink. Neck: Cervical and supraclavicular nodes normal without enlargement, trachea is midline, thyroid gland is normal without masses. Pulmonary: Clear to auscultation and percussion bilaterally. Cardiac: Regular rate and rhythm. No murmur Abdomen: Soft, diffuse tenderness, nondistended, bowel sounds present all 4 quadrants, no guarding, no rigidity, no organomegaly. Extremities: No cyanosis, clubbing, no edema Neuro: Cranial nerves II through XII grossly intact, normal affect and speech, no focal motor deficits. Labs/Xrays ORDERING PHYSICIAN: ANNE-MARIE MAXWELL PROCEDURE(s): ABPL - CT AB PEL WO CON-NO ORAL OR IV REASON: ABD PAIN ORDER NUMBER(s): [id number], ACCESSION NUMBER(s): [id number] COMPUTERIZED TOMOGRAPHY ABDOMEN AND PELVIS WITHOUT CONTRAST REASON FOR EXAM: ABD PAIN COMPARISON: CT CT AB PEL WO CON-NO ORAL OR IV on DOS: 07/16/24, CT CT AB PEL WO CON-NO ORAL OR IV on DOS: 06/12/24, CT CT AB PEL WO CON-NO ORAL OR IV on DOS: 07/18/23, CT CT AB PEL WO CON-NO ORAL OR IV on DOS: 06/18/23, CT ABD PELVIS WO CONTRAST on DOS: 06/18/21 TECHNIQUE: Spiral scans were acquired from the diaphragm to the symphysis pubis without intravenous contrast administration. 2-D coronal and sagittal reformatted images were provided. Radiation optimization: All CT scans at this facility use at least one of these dose optimization techniques: Automated exposure control mA and/or kV adjustment per patient size (includes targeted exams where dose is matched to clinical indication) or iterative reconstruction. RADIATION DOSE: CTDI: 25 mGy DLP: 1280 mGy-cm FINDINGS: The visualized lung bases are grossly clear. There is no pleural effusion. There is no pericardial effusion. The spleen is not enlarged. The liver is normal in size and contour. Evaluation of the abdominal organs is suboptimal in the absence of intravenous contrast. The gallbladder is surgically absent. Unenhanced appearance of the santana creas is unremarkable. The adrenal glands are normal. The kidneys are similar in size. There is no hydronephrosis of either kidney. There is no renal, ureteral, or bladder calculus. The urinary bladder is unremarkable. There is no abdominal aortic aneurysm. There is no pathologic lymphadenopathy by size criteria. The prostate and seminal vesicles are within normal limits. There is no significant colonic stool burden. The appendix is normal. No free fluid is identified. There is no pathologic distention of the small bowel. No acute osseous abnormality is identified. IMPRESSION: No acute finding in the abdomen or pelvis to explain the patient's pain. Normal appendix Prior cholecystectomy No evidence of bowel obstruction. Labs Test 10/17/24 17:58 10/17/24 14:01 10/17/24 13:48 Range/Units Lactic Acid Level 1.8 0.4-2.0 mmol/L White Blood Count 17.4 H 4.4-10.8 10^3/uL Red Blood Count 5.41 4.5-5.90 10^6/uL Hemoglobin 16.9 13.5-17.5 g/dL Hematocrit 48.0 41.0-53.0 % Mean Corpuscular Volume 88.6 80.0-100.0 fL Mean Corpuscular Hemoglobin 31.2 28.0-32.0 pg Mean Corpuscular Hemoglobin Concent 35.2 32.0-36.0 g/dL Red Cell Distribution Width 13.5 11.8-14.3 % Platelet Count 306 140-450 10^3/uL Mean Platelet Volume 9.6 6.9-10.8 fL Neutrophils (%) (Auto) 79.9 37.0-80.0 % Lymphocytes (%) (Auto) 15.5 10.0-50.0 % Monocytes (%) (Auto) 4.1 0.0-12.0 % Eosinophils (%) (Auto) 0.2 0.0-7.0 % Basophils (%) (Auto) 0.3 0.0-2.0 % Neutrophils # (Auto) 13.9 H 1.6-8.6 10 ^3/uL Lymphocytes # (Auto) 2.7 0.4-5.4 10 ^3/uL Monocytes # (Auto) 0.7 0-1.3 10 ^3/uL Eosinophils # (Auto) 0 0-0.8 10 ^3/uL Basophils # (Auto) 0.1 0-0.2 10 ^3/uL Nucleated Red Blood Cells 0.4 % Sodium Level 141 136-145 mmol/L Potassium Level 3.4 L 3.5-5.1 mmol/L Chloride Level 104 98-107 mmol/L Carbon Dioxide Level 21 20-31 mmol/L Anion Gap 16 H 5-15 Blood Urea Nitrogen 14 9-23 mg/dL Creatinine 1.00 0.700-1.30 mg/dL Glomerular Filtration Rate Calc 106 >90 mL/min BUN/Creatinine Ratio 14.0 10.0-20.0 Serum Glucose 128 H 74-106 mg/dL Calcium Level 10.8 H 8.7-10.4 mg/dL Total Bilirubin 1.0 0.2-1.0 mg/dL Aspartate Amino Transferase (AST) 34 13-40 U/L Alanine Aminotransferase (ALT) 61 H 7-40 U/L Alkaline Phosphatase 89 46-116 U/L Total Protein 8.8 H 5.7-8.2 g/dL Albumin 5.4 H 3.2-4.8 g/dL Lipase 62 H 12-53 U/L Plasma/Serum Blood Alcohol 3.3 <10 mg/dL Urine Color Yellow Yellow Urine Clarity Clear Clear Urine pH 6.0 5.0-9.0 Urine Specific [place] 1.042 H 1.001-1.035 Urine Protein 2+ H Negative Urine Ketones 4+ H Negative Urine Blood Trace H Negative /uL Urine Nitrite Negative Negative Urine Bilirubin Negative Negative Urine Urobilinogen Normal Negative mg/dL Urine Leukocyte Esterase Negative Negative /uL Urine RBC 7 0 - 3 /hpf Urine Microscopic WBC 1 0-3 /HPF Urine Squamous Epithelial Cells None seen <5 /hpf Urine Calcium Oxalate Crystals Few None Seen Urine Bacteria None seen None Seen /hpf Urine Mucus Few None Seen Urine Glucose Normal Normal mg/dL Urine Opiates Screen Pos NEGATIVE Urine Fentanyl Screen Pos NEGATIVE Urine Barbiturates Screen Neg NEGATIVE Urine Phencyclidine Screen Neg NEGATIVE Urine Amphetamines Screen Neg NEGATIVE Urine Benzodiazepines Screen Neg NEGATIVE Urine Cocaine Screen Neg NEGATIVE Urine Cannabinoids Screen Pos NEGATIVE SEPSIS Sepsis Screen Date sepsis recognized/suspect: Oct 17, 2024 Time Sepsis recognized/suspect: 1931 Recent Procedure: No On Antibiotic Therapy: No Respiratory Rate >20: No Heart Rate >90: No Temp<36 C (96.8 F) or >38.3 C: No SBP <90 or MAP <65 mmHG: No New Acute Mental Status Change: No Is the patient on CPAP, BIPAP,: No Physician Orders Heplock Iv (10/17/24 ) * Gi D[facility] Silver [employer]er Blasting (10/17/24 17:44) Metronidazole 500mg/100ml (Flagyl 500mg/ (10/17/24 22:00) Sodium Chloride 0.9% (10/17/24 17:45) Pantoprazole (Protonix) (10/18/24 10:00) Npo Except For Medications (10/17/24 17:44) Npo (Nothing By Mouth) Diet (10/17/24 Dinner) Admit (10/17/24 17:44) Ondansetron Hcl (Zofran) (10/17/24 17:45) Complete Blood Count (10/18/24 04:00) Comprehensive Metabolic Panel (10/18/24 04:00) Condition: Stable (10/17/24 17:44) Bedrest With Bathroom Privileg (10/17/24 17:44) Morphine Sulfate Injection (10/17/24 17:45) Blood Culture (10/17/24 17:44) Vital Signs Date Time Temp Pulse Resp B/P (MAP) Pulse Ox O2 Delivery O2 Flow Rate FiO2 10/17/24 19:31 69 19 142/70 (94) 98 10/17/24 19:26 69 19 142/70 10/17/24 18:33 81 20 133/71 10/17/24 18:31 98.0 81 20 133/70 (91) 97 98.0 10/17/24 14:51 98.8 81 21 146/81 (102) 96 98.8 10/17/24 14:34 78 14 96 Room Air* 0 21 10/17/24 13:47 98.7 92 24 127/92 (104) 96 98.7 Laboratory Tests Test 10/17/24 14:01 10/17/24 17:58 White Blood Count 17.4 10^3/uL (4.4-10.8) H Lactic Acid Level 1.8 mmol/L (0.4-2.0) Medications Medications Dose Ordered Sig/Makeda Route Start Time Stop Time Status Last Admin Dose Admin Ceftriaxone Sodium 50 ml @ 100 mls/hr ONCE ONCE IV 10/17/24 16:00 10/17/24 16:29 DC 10/17/24 16:10 100 MLS/HR Diphenhydramine HCl 25 mg ONCE ONCE IV 10/17/24 14:00 10/17/24 14:01 DC 10/17/24 14:23 25 MG Famotidine 20 mg ONCE ONCE IV 10/17/24 14:00 10/17/24 14:01 DC 10/17/24 14:24 20 MG Ketorolac Tromethamine 30 mg ONCE ONCE IV 10/17/24 14:00 10/17/24 14:01 DC 10/17/24 14:23 30 MG Metoclopramide HCl 10 mg ONCE ONCE IV 10/17/24 14:00 10/17/24 14:01 DC 10/17/24 14:24 10 MG Morphine Sulfate 2 mg Q4HPRN PRN IV 10/17/24 17:45 10/17/24 18:33 2 MG Ondansetron HCl 4 mg Q4HP PRN IV 10/17/24 17:45 10/17/24 18:32 4 MG Potassium Chloride 20 meq ONCE ONCE PO 10/17/24 17:45 10/17/24 18:19 DC 10/17/24 18:30 20 MEQ Sodium Chloride 1,000 ml @ 1,000 mls/hr Q1H ONCE IV 10/17/24 14:00 10/17/24 14:59 DC 10/17/24 14:24 1,000 MLS/HR Sodium Chloride 1,000 ml @ 1,000 mls/hr Q1H ONCE IV 10/17/24 16:00 10/17/24 16:59 DC 10/17/24 16:19 1,000 MLS/HR Assessment/Plan Assessment/Plan Assessment Acute abdominal pain Early pancreatitis Electrolyte imbalance Polysubstance abuse Leukocytosis Plan Admit the patient to [facility] to the hospitalist GI consultation Replete electrolytes Maintenance IV fluids Pain management Continue treatment per orders. Plan discussed with: Patient My Orders Orders - VERONIKA BHATIA AGACNMarianne Procedure Category Date Status Time * Gi Dvh [employer] Blasting CONS 10/17/24 Transmitted 17:44 Metronidazole PHA 10/17/24 In Process 500mg/100ml (Flagyl 22:00 Sodium Chloride 0.9% PHA 10/17/24 In Process 17:45 Pantoprazole PHA 10/18/24 In Process (Protonix) 10:00 Npo Except For MARY 10/17/24 In Process Medications 17:44 Npo (Nothing By DIET 10/17/24 Transmitted Mouth) Diet Dinner Admit ADMIT 10/17/24 Transmitted 17:44 Ondansetron Hcl PHA 10/17/24 In Process (Zofran) 17:45 Complete Blood Count LAB 10/18/24 Verified 04:00 Comprehensive LAB 10/18/24 Verified Metabolic Panel 04:00 Condition: Stable MARY 10/17/24 In Process 17:44 Bedrest With Bathroom MARY 10/17/24 In Process Privileg 17:44 Morphine Sulfate PHA 10/17/24 In Process Injection 17:45 Blood Culture ROGER 10/17/24 In Process 17:44 Date of Service: Oct 17, 2024 Billing Provider: VERONIKA BHATIA Common Visit Codes: [id number] INP/OBS CARE (MOD) VERONIKA BHATIA Oct 17, 2024 19:46
[2024-10-17 22:47] VITALS: PULSE 58; RESP 16
[2024-10-18] VITALS (7 sets, daily range): BP systolic 119–139; BP diastolic 68–81; PULSE 60–78; RESP 14–19; TEMP 98–98.7; O2SAT 98–99
[2024-10-18 05:49] LABS: Hematocrit 42.6 % (41.0-53.0); Hemoglobin 14.8 g/dL (13.5-17.5); Mean Corpuscular Hemoglobin 31.8 pg (28.0-32.0); Mean Corpuscular Volume 91.5 fL (80.0-100.0); Nucleated Red Blood Cells % 0.1 %
[2024-10-18 06:00] LABS: Alkaline Phosphatase 71 U/L (46-116); Anion Gap 10 (5-15); BUN/Creatinine Ratio 10.8 (10.0-20.0); Blood Urea Nitrogen 11 mg/dL (9-23); Calcium 9.6 mg/dL (8.7-10.4); Carbon Dioxide 25 mmol/L (20-31); Glucose 92 mg/dL (74-106); Potassium 4.1 mmol/L (3.5-5.1); Sodium 144 mmol/L (136-145); Total Protein 7.1 g/dL (5.7-8.2)
[2024-10-18 06:01] LABS: Albumin 4.4 g/dL (3.2-4.8); Bilirubin, Total 1.0 mg/dL (0.2-1.0)
[2024-10-18 06:03] LABS: Alanine Aminotransferase 46 U/L (7-40); Chloride 109 mmol/L (98-107)
[2024-10-18] MEDS: PANTOPRAZOLE 40 MG/10 ML VIAL INJ IV SCH (09:02)
--- NOTE | 2024-10-18 10:27 | DVHPNRES ---
Progress Note Date Seen: Oct 18, 2024 Resident Creating Document: LEN MENDEZ RESIDENT Medical Necessity Reason Pt with a Central, PICC or Fol: No Subjective Review of Systems Patient is a 29-year-old male with past medical history of hyperlipidemia, scoliosis, cluster headaches and uses verapamil, gastritis, he presented to the ED with abdominal pain, nausea, vomiting, diarrhea. He came to the ED with similar symptoms on Monday. He reports he has had recurrent episodes of vomiting since April and 2 episodes this week. He states he used sucralfate for 1 year and symptoms resolved. He had his gallbladder removed 7 years ago and reported multiple episodes of vomiting after. patient had her endoscopy and colonoscopy 2 years ago which showed no abnormalities. he states diffuse abdominal pain but mostly in the epigastric and umbilical region that is dull constant, 8/10 in intensity, increases after eating a big meal or eating too fast, and decreased after burping, passing gas or bowel movement. Also he states that he feels cold all the time. the vomiting is mostly greenish yellow in color, and had 6-7 epsodes yesterday. Family history is noncontributory. Surgical history is he had a gallbladder surgery. He denies any smoking, alcohol use but smokes marijuana 2 times in a week. Patient seen at bedside. Patient appears comfortable, alert x3, patient states that he feels better than yesterday, but He complains of 6/10 abdominal pain in the umbilical and epigastric region associated with nausea and 1 episode of diarrhea in the morning but has not vomited since yesterday. Patient denies any dizziness, headaches, constipation. Objective vital signs Vital Sign Date Time Temp Pulse Resp B/P (MAP) Pulse Ox O2 Delivery O2 Flow Rate FiO2 10/18/24 09:00 98.7 78 16 125/76 (92) 98 98.7 10/17/24 22:47 Room Air* 0 21 Total Intake and Output 10/17/24 10/17/24 10/18/24 15:00 23:00 07:00 Intake Total 2050 ml 0 ml Output Total 0 ml Balance 2050 ml 0 ml medications Current Medications Medications Dose Ordered Sig/Makeda Route Start Time Stop Time Status Last Admin Dose Admin Metronidazole 100 ml @ 100 mls/hr Q8HR IV 10/17/24 22:00 10/18/24 05:43 100 MLS/HR Pantoprazole Sodium 40 mg DAILY IV 10/18/24 10:00 10/18/24 09:02 40 MG Ondansetron HCl 4 mg Q4HP PRN IV 10/17/24 17:45 10/17/24 23:36 4 MG Morphine Sulfate 2 mg Q4HPRN PRN IV 10/17/24 17:45 10/18/24 06:08 2 MG Examination General: Patient alert and oriented in person, place and time. Patient following commands. HEENT: Normocephalic, atraumatic, moist mucous membranes Respiratory/pulmonary: Clear lungs bilaterally, vesicular murmurs present in almost all lung corado, no associated crackles or wheezes. Cardiovascular: Normal heart sounds S1 and S2 with no associated murmurs Abdomen: Abdomen nondistended, diffuse abdominal pain mostly in the epigastric and umbilical region, no palpable masses. Extremities: There is no peripheral edema present at the lower extremities. Peripheral Pulses: 3+ Radial (R). 3+ Radial (L). 3+ Dorsalis pedis (R). 3+ Dorsalis pedis(L) Skin: No rashes or pruritus, there is no sacral edema present at this time. Neurological: Intact cranial nerves with no focal neurologic deficits laboratory and microbiology Laboratory Tests 10/18/24 05:04 Test 10/18/24 05:04 Range/Units Serum Glucose 92 74-106 mg/dL Problem List/Assessment/Plan Problem List/Assessment/Plan #Intractable Abdominal pain # Intractable Nausea and vomiting - zofran - metronidazole - morphine - consulted GI advised to start full liquid diet - ultrasound abdomen showed Cholecystectomy. No definite abnormality identified. - CT abdomen showed No acute finding in the abdomen or pelvis to explain the patient's pain. Normal appendix, Prior cholecystectomy, No evidence of bowel obstruction. # polysubstance use disorder - counseled patient about marijuana use discontinuation and rehabilitation for over 20 minutes. PPI prophylaxis :Protonix DVT prophylaxis: Ambulatory Plan discussed with the patient for 23 minutes: Full code Case discussed with Dr. Pulido Plan discussed with: Patient LEN MENDEZ RESIDENT Oct 18, 2024 10:27
[2024-10-18 10:31] LABS: Hepatitis B Surface Antigen Negative (Negative); Hepatitis C Antibody Negative (Negative)
--- NOTE | 2024-10-18 21:05 | DVHINCON2 ---
Date of service: Oct 18, 2024 Referring Physician Qasim Arvizu Reason for Consultation Abdominal pain History of Present Illness 29-year-old male presents for evaluation of abdominal pain. Patient reports developing abdominal pain seven years ago when his gallbladder was removed. He states having episodes of diffuse abdominal pain with associated nausea and vomiting. Patient had previous EGD and colonoscopy at the [facility] about two years ago which she believes were essentially unremarkable. Patient's recent CT scan last week was negative. Patient's labs showed mild leukocytosis and mild pancreatitis with an elevated lipase Patient seen at bedside. Patient appears comfortable, alert x3, patient states that he feels better than yesterday, but He complains of 5/10 abdominal pain in the umbilical and epigastric region associated with nausea and 1 episode of diarrhea in the morning but has not vomited since yesterday. Patient denies any dizziness, headaches, constipation. Patient is now hungry and would like to eat In the past patient stated Carafate had helped his symptoms Past Medical History Past Medical History Gastritis Past Surgical History Past Surgical History Cholecystectomy Extra fingers surgery both hands Family History: Alcoholism G8 FATHER, FH: hepatitis G8 FATHER, Hypercholesterolemia G8 MOTHER Allergies: Coded Allergies: NO KNOWN ALLERGIES (Unverified , 02/05/21) Home Meds Active Scripts Ondansetron Odt 4MG Tab (ZOFRAN PO) 4 Mg Tb, 4 MG PO Q6HR for 5 Days, #20 TAB ODT TAB-DISSOLVE IN MOUTH, THEN SWALLOW Prov:LEONIDES ISAAC RESIDENT 07/20/24 Sucralfate (Carafate) 1 Gm/10 Ml Cristal, 10 ML PO BID for 30 Days, #600 ML 0 Refills Prov:ANAYELI CARIAS RESIDENT 06/15/24 Reported Medications Buprenorphine (Butrans) 15 Mcg/Hr Dis, 1 PATCH TD QWEEKLY for 28 Days, #4 06/13/24 Acetaminophen W/ Codeine (Acetaminophen/Codeine) 1 Tab Tab, 1 TAB PO Q12HR PRN for MODERATE PAIN (4-6 PAIN SCALE) for 30 Days, #60 06/13/24 Lidocaine (Lidocaine) 5 % Pad, 1-2 PATCH TOP DAILY for 30 Days, #60 UNWRAP AND APPLY 1 TO 2 PATCHES EXTERNALLLY TO DRY INTACT SKIN DAILY EVERY 12 HOURS ON AND EVERY 12 HOURS OFF. 06/13/24 Verapamil Hcl (Verapamil Hcl Er) 240 Mg Cap, 1 CAP PO DAILY 08/10/22 Current Medications Current Medications Medications (Trade) Dose Ordered Sig/Makeda Route PRN Reason Start Time Stop Time Status Last Admin Metronidazole 100 ml @ 100 mls/hr Q8HR IV 10/17/24 22:00 10/18/24 13:15 Pantoprazole Sodium (Protonix) 40 mg DAILY IV 10/18/24 10:00 10/18/24 09:02 Vital Signs Vital Signs Date Time Temp Pulse Resp B/P (MAP) Pulse Ox O2 Delivery O2 Flow Rate FiO2 10/18/24 17:46 60 17 129/81 10/18/24 17:00 98.4 99 98.4 10/18/24 08:00 Room Air* 0 21 Physical Exam Gen: 29-year-old male in no distress, obese; awake and alert x3 Skin: Warm, dry, normal color and texture, no rash. HEENT: Normocephalic atraumatic, mucous membranes moist and pink. Neck: Cervical and supraclavicular nodes normal without enlargement, trachea is midline, thyroid gland is normal without masses. Pulmonary: Clear to auscultation and percussion bilaterally. Cardiac: Regular rate and rhythm. No murmur Abdomen: Soft, minimal supraumbilical tenderness, nondistended, bowel sounds present all 4 quadrants, no guarding, no rigidity, no organomegaly. Extremities: No cyanosis, clubbing, no edema Neuro: Cranial nerves II through XII grossly intact, normal affect and speech, no focal motor deficits. Labs/Diagnostic Data Labs Test 10/18/24 05:04 10/17/24 17:58 10/17/24 14:01 10/17/24 13:48 Range/Units White Blood Count 13.9 H 4.4-10.8 10^3/uL Red Blood Count 4.66 4.5-5.90 10^6/uL Hemoglobin 14.8 13.5-17.5 g/dL Hematocrit 42.6 # 41.0-53.0 % Mean Corpuscular Volume 91.5 80.0-100.0 fL Mean Corpuscular Hemoglobin 31.8 28.0-32.0 pg Mean Corpuscular Hemoglobin Concent 34.8 32.0-36.0 g/dL Red Cell Distribution Width 13.5 11.8-14.3 % Platelet Count 236 140-450 10^3/uL Mean Platelet Volume 9.7 6.9-10.8 fL Neutrophils (%) (Auto) 62.3 37.0-80.0 % Lymphocytes (%) (Auto) 29.4 10.0-50.0 % Monocytes (%) (Auto) 7.5 0.0-12.0 % Eosinophils (%) (Auto) 0.4 0.0-7.0 % Basophils (%) (Auto) 0.4 0.0-2.0 % Neutrophils # (Auto) 8.7 H 1.6-8.6 10 ^3/uL Lymphocytes # (Auto) 4.1 0.4-5.4 10 ^3/uL Monocytes # (Auto) 1.0 0-1.3 10 ^3/uL Eosinophils # (Auto) 0.1 0-0.8 10 ^3/uL Basophils # (Auto) 0.1 0-0.2 10 ^3/uL Nucleated Red Blood Cells 0.1 % Sodium Level 144 136-145 mmol/L Potassium Level 4.1 3.5-5.1 mmol/L Chloride Level 109 H 98-107 mmol/L Carbon Dioxide Level 25 20-31 mmol/L Anion Gap 10 5-15 Blood Urea Nitrogen 11 9-23 mg/dL Creatinine 1.02 0.700-1.30 mg/dL Glomerular Filtration Rate Calc 103 >90 mL/min BUN/Creatinine Ratio 10.8 10.0-20.0 Serum Glucose 92 74-106 mg/dL Calcium Level 9.6 8.7-10.4 mg/dL Total Bilirubin 1.0 0.2-1.0 mg/dL Aspartate Amino Transferase (AST) 40 13-40 U/L Alanine Aminotransferase (ALT) 46 H 7-40 U/L Alkaline Phosphatase 71 46-116 U/L Total Protein 7.1 5.7-8.2 g/dL Albumin 4.4 3.2-4.8 g/dL Lactic Acid Level 1.8 0.4-2.0 mmol/L Lipase 62 H 12-53 U/L Plasma/Serum Blood Alcohol 3.3 <10 mg/dL Hepatitis B Surface Antigen Negative Negative Hepatitis C Antibody Negative Negative Urine Color Yellow Yellow Urine Clarity Clear Clear Urine pH 6.0 5.0-9.0 Urine Specific [place] 1.042 H 1.001-1.035 Urine Protein 2+ H Negative Urine Ketones 4+ H Negative Urine Blood Trace H Negative /uL Urine Nitrite Negative Negative Urine Bilirubin Negative Negative Urine Urobilinogen Normal Negative mg/dL Urine Leukocyte Esterase Negative Negative /uL Urine RBC 7 0 - 3 /hpf Urine Microscopic WBC 1 0-3 /HPF Urine Squamous Epithelial Cells None seen <5 /hpf Urine Calcium Oxalate Crystals Few None Seen Urine Bacteria None seen None Seen /hpf Urine Mucus Few None Seen Urine Glucose Normal Normal mg/dL Urine Opiates Screen Pos NEGATIVE Urine Fentanyl Screen Pos NEGATIVE Urine Barbiturates Screen Neg NEGATIVE Urine Phencyclidine Screen Neg NEGATIVE Urine Amphetamines Screen Neg NEGATIVE Urine Benzodiazepines Screen Neg NEGATIVE Urine Cocaine Screen Neg NEGATIVE Urine Cannabinoids Screen Pos NEGATIVE Microbiology Date/Time Source Procedure Growth Status 10/17/24 23:30 Nose MRSA Screen - Final Complete 10/17/24 17:58 Blood Blood Culture - Preliminary NO GROWTH AFTER 24 HOURS OF INCU[address]ATION. Resulted CT SCAN ABD PELVIS IMPRESSION: No acute finding in the abdomen or pelvis to explain the patient's pain. Normal appendix Prior cholecystectomy No evidence of bowel obstruction. Liver USG 06/18IMPRESSION: No acute finding in the abdomen or pelvis to explain the patient's pain. Normal appendix Prior cholecystectomy No evidence of bowel obstruction. Problems(with codes): (1) Cannabis abuse (2) Leukocytosis (3) Intractable nausea and vomiting (4) Acute pancreatitis (5) Gastritis (6) Hypercalcemia Plan/Recommendation Plan We will start him on a full liquid diet advance as tolerated Carafate suspension 1 g p.o. 4 times a day Patient will be advised against marijuana use substance abuse Continue to monitor lipase levels and continue supportive care Outpatient follow up with GI Services to discuss elective endoscopy if symptoms persist Plan discussed with: Patient ROSI COHEN MD Oct 18, 2024 21:05
[2024-10-18] MEDS: SUCRALFATE 1 GM/10 ML ORAL SUSP PO SCH (22:25)
[2024-10-19 01:00] VITALS: BP 129/79; PULSE 66; RESP 18; TEMP 98.9; O2SAT 97
[2024-10-19 05:00] VITALS: BP 136/78; PULSE 71; RESP 18; TEMP 98.8; O2SAT 98
[2024-10-19] MEDS: PANTOPRAZOLE 40 MG TAB PO SCH (05:45)
[2024-10-19 08:03] LABS: Anion Gap 14 (5-15); Carbon Dioxide 24 mmol/L (20-31); Chloride 106 mmol/L (98-107); Sodium 144 mmol/L (136-145)
[2024-10-19 08:07] LABS: Hematocrit 45.7 % (41.0-53.0); Hemoglobin 15.9 g/dL (13.5-17.5); Mean Corpuscular Hemoglobin 31.2 pg (28.0-32.0); Mean Corpuscular Volume 89.7 fL (80.0-100.0); Nucleated Red Blood Cells % 0.1 %
[2024-10-19 08:09] LABS: BUN/Creatinine Ratio 10.9 (10.0-20.0); Blood Urea Nitrogen 11 mg/dL (9-23); Glucose 86 mg/dL (74-106)
[2024-10-19 08:11] LABS: Calcium 10.5 mg/dL (8.7-10.4); Potassium 3.3 mmol/L (3.5-5.1)
[2024-10-19 08:30] VITALS: BP 140/74; PULSE 80; RESP 18; TEMP 97.5; O2SAT 100
[2024-10-19] MEDS ORDERED: POTASSIUM CHL 20MEQ/100ML 100 ML IV ONE (11:30)
--- NOTE | 2024-10-19 11:30 | DVHPNRES ---
Progress Note Date Seen: Oct 19, 2024 Resident Creating Document: LEN MENDEZ RESIDENT Medical Necessity Reason Pt with a Central, PICC or Fol: No Subjective Review of Systems Patient is a 29-year-old male with past medical history of hyperlipidemia, scoliosis, cluster headaches and uses verapamil, gastritis, he presented to the ED with abdominal pain, nausea, vomiting, diarrhea. He came to the ED with similar symptoms on Monday. He reports he has had recurrent episodes of vomiting since April and 2 episodes this week. He states he used sucralfate for 1 year and symptoms resolved. He had his gallbladder removed 7 years ago and reported multiple episodes of vomiting after. patient had her endoscopy and colonoscopy 2 years ago which showed no abnormalities. he states diffuse abdominal pain but mostly in the epigastric and umbilical region that is dull constant, 8/10 in intensity, increases after eating a big meal or eating too fast, and decreased after burping, passing gas or bowel movement. Also he states that he feels cold all the time. the vomiting is mostly greenish yellow in color, and had 6-7 epsodes yesterday. Family history is noncontributory. Surgical history is he had a gallbladder surgery. He denies any smoking, alcohol use but smokes marijuana 2 times in a week. Patient seen at bedside. Patient appears alert x3, in moderate distress, states that he has not slept all night, has 7/10 back pain due to scoliosis, has had 3- 4 episodes of watery diarrhea yesterday, and states that his pain and bloating increased after eating yesterday night, but denies any nausea, vomiting, dizziness, headaches. Labs showed hypokalemia and potassium was given. GI on board and Recomended Outpatient follow up with GI Services to discuss elective endoscopy if symptoms persist. Objective vital signs Vital Sign Date Time Temp Pulse Resp B/P (MAP) Pulse Ox O2 Delivery O2 Flow Rate FiO2 10/19/24 08:52 72 16 133/78 10/19/24 08:30 97.5 100 97.5 10/19/24 07:50 Room Air* 0 21 Total Intake and Output 10/18/24 10/18/24 10/19/24 15:00 23:00 07:00 Intake Total 100 ml 105 ml 1025 ml Balance 100 ml 105 ml 1025 ml medications Current Medications Medications Dose Ordered Sig/Makeda Route Start Time Stop Time Status Last Admin Dose Admin Metronidazole 100 ml @ 100 mls/hr Q8HR IV 10/17/24 22:00 10/19/24 05:45 100 MLS/HR Ondansetron HCl 4 mg Q4HP PRN IV 10/17/24 17:45 10/17/24 23:36 4 MG Morphine Sulfate 2 mg Q4HPRN PRN IV 10/17/24 17:45 10/19/24 08:22 2 MG Pantoprazole Sodium 40 mg BID@0600,1700 PO 10/19/24 06:00 10/19/24 05:45 40 MG Sucralfate 1 gm QID@0600,1130,1700,2200 PO 10/18/24 22:00 10/19/24 05:45 1 GM Examination General: Patient alert and oriented in person, place and time. Patient following commands. HEENT: Normocephalic, atraumatic, moist mucous membranes Respiratory/pulmonary: Clear lungs bilaterally, vesicular murmurs present in almost all lung corado, no associated crackles or wheezes. Cardiovascular: Normal heart sounds S1 and S2 with no associated murmurs Abdomen: Abdomen nondistended, diffuse abdominal pain mostly in the epigastric and umbilical region, no palpable masses. Extremities: There is no peripheral edema present at the lower extremities. Peripheral Pulses: 3+ Radial (R). 3+ Radial (L). 3+ Dorsalis pedis (R). 3+ Dorsalis pedis(L) Skin: No rashes or pruritus, there is no sacral edema present at this time. Neurological: Intact cranial nerves with no focal neurologic deficits laboratory and microbiology Laboratory Tests 10/19/24 05:39 Test 10/19/24 05:39 Range/Units Serum Glucose 86 74-106 mg/dL Microbiology Date/Time Source Procedure Growth Status 10/17/24 23:30 Nose MRSA Screen - Final Complete 10/17/24 17:58 Blood Blood Culture - Preliminary NO GROWTH AFTER 24 HOURS OF INCUBATION. Resulted Problem List/Assessment/Plan Problem List/Assessment/Plan #Intractable Abdominal pain # Intractable Nausea and vomiting - zofran 4mg - Sucralfate 1mg - IV metronidazole 4mg - morphine 2 mg - consulted GI advised to start diet as tolerated, and Recomended Outpatient follow up with GI Services to discuss elective endoscopy if symptoms persist. - ultrasound abdomen showed Cholecystectomy. No definite abnormality identified. - CT abdomen showed No acute finding in the abdomen or pelvis to explain the patient's pain. Normal appendix, Prior cholecystectomy, No evidence of bowel obstruction. #Mild hypokalemia -Potassium 20 Meq po given # polysubstance use disorder - counseled patient about marijuana use discontinuation and rehabilitation for over 20 minutes. PPI prophylaxis :Protonix 40mg DVT prophylaxis: Ambulatory Plan discussed with the patient for 23 minutes: Full code Case discussed with Dr. Tejada Plan discussed with: Patient My Orders My Orders Orders - LEN MENDEZ Procedure Category Date Status Time Potassium Chl PHA 10/19/24 Logged 20meq/100ml 11:30 Magnesium LAB 10/19/24 In Process 11:16 Date of Service: Oct 19, 2024 Billing Provider: LAUREN TEJADA DO Common Visit Codes: [id number] INP/OBS CARE(HIGH) LEN MENDEZ Oct 19, 2024 11:30 LAUREN TEJADA DO Oct 19, 2024 16:58
[2024-10-19 12:40] VITALS: BP 117/75; PULSE 66; RESP 14; TEMP 97.8; O2SAT 98
[2024-10-19] MEDS: POTASSIUM CHL 20 Meq TABLET PO ONE (15:21)
[2024-10-19 16:56] VITALS: BP 125/81; PULSE 65; RESP 16; TEMP 98.2; O2SAT 99
[2024-10-19 21:00] VITALS: BP 130/75; PULSE 83; RESP 19; TEMP 98.6; O2SAT 97
[2024-10-20 01:00] VITALS: BP 111/67; PULSE 74; RESP 18; TEMP 97.5; O2SAT 97
[2024-10-20 05:00] VITALS: BP 136/82; PULSE 93; RESP 18; TEMP 98.4; O2SAT 98
[2024-10-20 06:29] LABS: Hematocrit 44.4 % (41.0-53.0); Hemoglobin 15.5 g/dL (13.5-17.5); Mean Corpuscular Hemoglobin 31.5 pg (28.0-32.0); Mean Corpuscular Volume 90.2 fL (80.0-100.0); Nucleated Red Blood Cells % 0.0 %
[2024-10-20 06:43] LABS: Anion Gap 15 (5-15); Carbon Dioxide 23 mmol/L (20-31)
[2024-10-20 06:44] LABS: Calcium 10.3 mg/dL (8.7-10.4)
[2024-10-20 06:46] LABS: Chloride 107 mmol/L (98-107); Potassium 3.1 mmol/L (3.5-5.1); Sodium 145 mmol/L (136-145)
[2024-10-20 06:48] LABS: BUN/Creatinine Ratio 9.0 (10.0-20.0); Blood Urea Nitrogen 9 mg/dL (9-23); Glucose 81 mg/dL (74-106)
[2024-10-20 09:00] VITALS: BP 148/84; PULSE 86; RESP 18; TEMP 98.5; O2SAT 97
[2024-10-20] MEDS: POTASSIUM CHL 20 Meq TABLET PO ONE (10:10)
[2024-10-20 13:00] VITALS: BP 130/50; PULSE 71; RESP 16; TEMP 98; O2SAT 98
[2024-10-20 14:40] VITALS: TEMP 36.7
[2024-10-20] MEDS: ACETAMINOPHEN 325 MG TAB PO ONE (14:54)
--- NOTE | 2024-10-20 15:55 | DVHDSRES ---
Discharge Summary Date of Admission Resident Creating Document: JG KING RESIDENT Oct 17, 2024 at 17:44 Date of Discharge: Oct 20, 2024 Admitting Diagnosis Abdominal Pain Labs/Diagnostic Data: Laboratory Results Test 10/20/24 05:09 10/19/24 05:39 10/18/24 05:04 10/17/24 17:58 White Blood Count 9.9 10^3/uL (4.4-10.8) Red Blood Count 4.93 10^6/uL (4.5-5.90) Hemoglobin 15.5 g/dL (13.5-17.5) Hematocrit 44.4 % (41.0-53.0) Mean Corpuscular Volume 90.2 fL (80.0-100.0) Mean Corpuscular Hemoglobin 31.5 pg (28.0-32.0) Mean Corpuscular Hemoglobin Concent 34.9 g/dL (32.0-36.0) Red Cell Distribution Width 13.2 % (11.8-14.3) Platelet Count 227 10^3/uL (140-450) Mean Platelet Volume 10.0 fL (6.9-10.8) Neutrophils (%) (Auto) 63.9 % (37.0-80.0) Lymphocytes (%) (Auto) 28.7 % (10.0-50.0) Monocytes (%) (Auto) 6.3 % (0.0-12.0) Eosinophils (%) (Auto) 0.8 % (0.0-7.0) Basophils (%) (Auto) 0.3 % (0.0-2.0) Neutrophils # (Auto) 6.3 10 ^3/uL (1.6-8.6) Lymphocytes # (Auto) 2.8 10 ^3/uL (0.4-5.4) Monocytes # (Auto) 0.6 10 ^3/uL (0-1.3) Eosinophils # (Auto) 0.1 10 ^3/uL (0-0.8) Basophils # (Auto) 0 10 ^3/uL (0-0.2) Nucleated Red Blood Cells 0.0 % Sodium Level 145 mmol/L (136-145) Potassium Level 3.1 mmol/L (3.5-5.1) Chloride Level 107 mmol/L (98-107) Carbon Dioxide Level 23 mmol/L (20-31) Anion Gap 15 (5-15) Blood Urea Nitrogen 9 mg/dL (9-23) Creatinine 1.00 mg/dL (0.700-1.30) Glomerular Filtration Rate Calc 106 mL/min (>90) BUN/Creatinine Ratio 9.0 (10.0-20.0) Serum Glucose 81 mg/dL (74-106) Calcium Level 10.3 mg/dL (8.7-10.4) Magnesium Level 2.1 mg/dL (1.6-2.6) Lipase 43 U/L (12-53) Total Bilirubin 1.0 mg/dL (0.2-1.0) Aspartate Amino Transferase (AST) 40 U/L (13-40) Alanine Aminotransferase (ALT) 46 U/L (7-40) Alkaline Phosphatase 71 U/L (46-116) Total Protein 7.1 g/dL (5.7-8.2) Albumin 4.4 g/dL (3.2-4.8) Lactic Acid Level 1.8 mmol/L (0.4-2.0) Test 10/17/24 14:01 10/17/24 13:48 Plasma/Serum Blood Alcohol 3.3 mg/dL (<10) Hepatitis B Surface Antigen Negative (Negative) Hepatitis C Antibody Negative (Negative) Urine Color Yellow (Yellow) Urine Clarity Clear (Clear) Urine pH 6.0 (5.0-9.0) Urine Specific [place] 1.042 (1.001-1.035) Urine Protein 2+ (Negative) Urine Ketones 4+ (Negative) Urine Blood Trace /uL (Negative) Urine Nitrite Negative (Negative) Urine Bilirubin Negative (Negative) Urine Urobilinogen Normal mg/dL (Negative) Urine Leukocyte Esterase Negative /uL (Negative) Urine RBC 7 /hpf (0 - 3) Urine Microscopic WBC 1 /HPF (0-3) Urine Squamous Epithelial Cells None seen /hpf (<5) Urine Calcium Oxalate Crystals Few (None Seen) Urine Bacteria None seen /hpf (None Seen) Urine Mucus Few (None Seen) Urine Glucose Normal mg/dL (Normal) Urine Opiates Screen Pos (NEGATIVE) Urine Fentanyl Screen Pos (NEGATIVE) Urine Barbiturates Screen Neg (NEGATIVE) Urine Phencyclidine Screen Neg (NEGATIVE) Urine Amphetamines Screen Neg (NEGATIVE) Urine Benzodiazepines Screen Neg (NEGATIVE) Urine Cocaine Screen Neg (NEGATIVE) Urine Cannabinoids Screen Pos (NEGATIVE) Other Laboratory Tests 10/20/24 05:09 Brief Hx & Hospital Course: Patient is a 29-year-old male with past medical history of hyperlipidemia, scoliosis, cluster headaches with use of verapamil, and gastritis, who presented to the ED with chief complaint of abdominal pain associated with nausea, vomiting, and diarrhea. He came to the ED with similar symptoms on Monday. He reports he has had intermittent episodes of vomiting since April, with 2 episodes this week. He states diffuse abdominal pain but mostly in the epigastric and umbilical region that is dull constant, 8/10 in intensity, increases after eating a big meal or eating too fast, and decreased after burping, passing gas or bowel movement. Accompanied by approximately 6-7 episodes of greenish/yellow vomit. He denies fever, palpitations, loss of consciousness, and other symptoms. He had his gallbladder removed 7 years ago and reported multiple episodes of vomiting after He states he has used sucralfate for 1 year, which aides in the resolution of symptoms. On evaluation in the ED, that patient was in moderate distress, hypertensive, and with epigastric tenderness to examination, without no guarding or rebound tenderness. Initial labs significant for WBC 17.4, sodium 141, potassium 3.4, lipase 62, and creatinine 1.00. UDS + for cannabis, fentanyl, and opioids. Patient had abdominal CT from previous vist which showed no acute findings in the abdomen or pelvis to explain the patient's pain. He admitted for further work up and monitoring. He was started on IV fluids, Zofran, morphine for pain, and metronidazole. Abdominal ultrasound showed no definite abnormalities identified. He was seen by GI, whop advised full liquid diet, sucralfate, advised against marijuana use, and outpatient follow up if symptoms persist. Patient has progress favorably. On evaluation today, he states that he was well, had some difficulty sleeping, but the abdominal pain and vomiting had ceased. He was advanced to full diet with no issue. Vitals have been stable, follow up labs were within normal range. He states he has an appointment scheduled this week with his PCP and his Commissary Clerk. He is considered safe for discharge home, with orders to follow up with his PCP and his death claim clerk for continued follow up of his symptoms. Physical Exam: General: Patient alert and oriented in person, place and time. Patient following commands. HEENT: Normocephalic, atraumatic, pink conjunctiva, pink moist mucous membranes Respiratory/pulmonary: Clear lungs bilaterally, vesicular murmurs present in almost all lung corado, no associated crackles or wheezes. Cardiovascular: Normal heart sounds S1 and S2 with no associated murmurs Abdomen: Obese, Abdomen nondistended, soft, mild pain to palpation in epigastric region, no guarding or rebound tenderness no palpable masses. Extremities: No deformaties, no peripheral edema present at the lower extremities, normal pulses Skin: No rashes or pruritus Neurological: Intact cranial nerves with no focal neurologic deficits Case discussed with Dr. Tejada. Goals of care discussed with the patient for over 20 minutes, he states he understands and agrees. Consults/Reason for consult GI was consulted due to suspicion of pancreatitis Condition at Discharge: Stable Final Diagnosis/Problems List Intractable Abdominal pain, likely due to gastritis Intractable Nausea and vomiting, likely due to gastritis Possible Cannabis hyperemesis syndrome Acute pancreatitis ruled out Mild hypokalemia Polysubstance use disorder Discharge Disposition: Home Discharge Instruct/Medications Diet: Regular Activity: No Restrictions, As Tolerated Follow Up/Referral: Follow up with PCP in 1-2 weeks Scheduled Buprenorphine (Butrans), 1 PATCH TD QWEEKLY, (Reported) Lidocaine (Lidocaine), 1-2 PATCH TOP DAILY, (Reported) Ondansetron Odt 4MG Tab (Zofran Po), 4 MG PO Q6HR Sucralfate (Carafate), 10 ML PO BID Verapamil Hcl (Verapamil Hcl Er), 1 CAP PO DAILY, (Reported) Scheduled PRN Acetaminophen W/ Codeine (Acetaminophen/Codeine), 1 TAB PO Q12HR PRN for MODERATE PAIN (4-6 PAIN SCALE), (Reported) Discharge Statement: "Patient was advised to return to the ER or call 911 if any headaches, dizziness, shortness of breath, chest pain, abdominal pain, bleeding, fevers, or worsening of medical condition. Patient was counseled about treatment plan, medications, possible side effects, patientverbalized understanding. All questions were answered to the best of my ability. This discharge took greater then 30 minutes in planning, reviewing documentation, counseling the patient, and discussing with other team members." ASSESSMENT ASSESSMENT Assessment Abdominal pain, possible gastritis Date of Service: Oct 20, 2024 Billing Provider: LAUREN TEJADA DO Common Visit Codes: 79963-WZU/OBS DISCH DAY >30min JG KING RESIDENT Oct 20, 2024 15:55 LAUREN TEJADA DO Oct 21, 2024 09:48
== END 2024-10-20 15:27 | disposition home or self-care (01) | DRG 241 ==
LOC: ER 13:37 → OVERFLOW 17:44 → CENTRAL 22:47
PROVIDERS: ADMIT Student in an Organized Health Care Education/Training Program; ATTEND Student in an Organized Health Care Education/Training Program
DX: K29.70 Gastritis, unspecified, without bleeding (principal); E83.52 Hypercalcemia; F19.10 Other psychoactive substance abuse, uncomplicated; F12.10 Cannabis abuse, uncomplicated; F41.9 Anxiety disorder, unspecified; E87.6 Hypokalemia; Z79.2 Long term (current) use of antibiotics; Z90.49 Acquired absence of other specified parts of digestive tract; Z79.899 Other long term (current) drug therapy
CPT/HCPCS: 36415; 80048; 80053; 80307; 80320; 81001; 83605; 83690; 83735; 85025; 86803; 87040; 87081; 87340; 96374; 96375; G0378; J1885; J2405; J2470; J3490

== ENCOUNTER 2024-12-07 08:47 | Inpatient (IN) | payer MEDICAID ==
[~2024-12-07] VITALS: Ht 177.8 cm; Wt 111.1 kg
[~2024-12-07 08:47] MED LIST changes: -SACC250C PO; -VANC250PO PO
--- NOTE | 2024-12-07 09:07 | ED.PDOC ---
GI ASSESSMENT HPI Comments 29 y.o male presents to the ED via EMS for a chief complaint of diffused abdominal pain associated with chills, malaise, nausea and vomiting that started yesterday. Patient describes pain as sharp, worse on palpation, and is constant with no alleviating factors. Patient does mention similar flare up in the past x a couple months ago that had subsided on its own. He has a hx of a cholecystectomy. No diarrhea, fever, hematemesis, dysuria, hematuria. Chief Complaint: Abdominal Pain Time Seen by MD: 08:47 Primary Care Provider: Shaila BACON Reviewed Notes: Nurses Notes, Medications, Allergies Allergies: Coded Allergies: NO KNOWN ALLERGIES (Unverified , 02/05/21) Home Meds Active Scripts Ondansetron Odt 4MG Tab (ZOFRAN PO) 4 Mg Tb, 4 MG PO Q6HR for 5 Days, #20 TAB ODT TAB-DISSOLVE IN MOUTH, THEN SWALLOW Prov:LEONIDES ISAAC RESIDENT 07/20/24 Sucralfate (Carafate) 1 Gm/10 Ml Cristal, 10 ML PO BID for 30 Days, #600 ML 0 Refills Prov:ANAYELI CARIAS RESIDENT 06/15/24 Reported Medications Buprenorphine (Butrans) 15 Mcg/Hr Dis, 1 PATCH TD QWEEKLY for 28 Days, #4 06/13/24 Acetaminophen W/ Codeine (Acetaminophen/Codeine) 1 Tab Tab, 1 TAB PO Q12HR PRN for MODERATE PAIN (4-6 PAIN SCALE) for 30 Days, #60 06/13/24 Lidocaine (Lidocaine) 5 % Pad, 1-2 PATCH TOP DAILY for 30 Days, #60 UNWRAP AND APPLY 1 TO 2 PATCHES EXTERNALLLY TO DRY INTACT SKIN DAILY EVERY 12 HOURS ON AND EVERY 12 HOURS OFF. 06/13/24 Verapamil Hcl (Verapamil Hcl Er) 240 Mg Cap, 1 CAP PO DAILY 08/10/22 Information Source: Patient Mode of Arrival: EMS Timing: Days (1) Duration: Since onset Quality: Sharp Vomitus: Hard Stool: Normal Severity: Moderate Recent: None Recent Hx of: None Pain Location: Diffuse Modifying Factors: Nothing Associated sign and symptoms: Nausea, Vomiting, Abdominal Pain Past Medical History PAST MEDICAL HISTORY: Anxiety Surgical History: Cholecystectomy Family History Family History: Reviewed,noncontributory to illness Social History Smoker: Non-Smoker Alcohol: Denies ETOH Use Drugs: Marijuana Lives In: Home Constitutional: reports: chills, malaise; denies: diaphoresis, fatigue, fever, sweats, weakness, others EENTM: denies: blurred vision, double vision, ear bleeding, ear discharge, ear drainage, ear pain, ear ringing, eye pain, eye redness, hearing loss, mouth pain, mouth swelling, nasal discharge, nose bleeding, nose congestion, nose pain, photophobia, tearing, throat pain, throat swelling, voice changes, others Respiratory: denies: cough, hemoptysis, orthopnea, SOB at rest, shortness of breath, SOB with excertion, stridor, wheezing, others Cardiovascular: denies: chest pain, dizzy spells, diaphoresis, Dyspnea on exertion, edema, irregular heart beat, left arm pain, lightheadedness, palpitations, PND, syncope, others Gastrointestinal: reports: abdominal pain, nausea, vomiting; denies: abdomen distended, blood streaked bowels, constipated, diarrhea, dysphagia, difficulty swallowing, hematemesis, melena, poor appetite, poor fluid intake, rectal bleeding, rectal pain, others Genitourinary: denies: burning, dysuria, flank pain, frequency, hematuria, incontinence, penile discharge, penile sore, pain, testicle pain, testicle swelling, urgency, others Neurological: denies: dizziness, fainting, headache, left sided numbness, left sided weakness, numbness, paresthesia, pre-existing deficit, right sided numbness, right sided weakness, seizure, speech problems, tingling, tremors, weakness, others Musculoskeletal: denies: back pain, gout, joint pain, joint swelling, muscle pain, muscle stiffness, neck pain, others Integumetry: denies: bruises, change in color, change in hair/nails, dryness, laceration, lesions, lumps, rash, wounds, others Allergic/Immunocompromised: denies: Difficulty Healing, Frequent Infections, Hives, Itching, others Hematologic/Lymphatic: denies: anemia, blood clots, easy bleeding, easy bruising, swollen glands, others Endocrine: denies: excessive hunger, excessive sweating, excessive thirst, excessive urination, flushing, intolerance to cold, intolerance to heat, unexplained weight gain, unexplained weight loss, others Psychiatric: denies: anxiety, bipolar disorder, depression, hopeless, panic disorder, schizophrenia, sleepless, suicidal, others All Other Systems: Reviewed and Negative Physical Exam General Appearance: Moderate Distress HEENT: Normal ENT Inspection, Pharynx Normal, TMs Normal Neck: Full Range of Motion, Non-Tender, Normal, Normal Inspection Respiratory: Chest Non-Tender, Lungs Clear, No Accessory Muscle Use, No Respiratory Distress, Normal Breath Sounds Cardiovascular: No Edema, No JVD, No Murmur, No Gallop, Normal Peripheral Pulses, Regular Rate/Rhythm Breast Exam: Deferred Gastrointestinal: Diffuse Genitalia: Deferred Pelvic: Deferred Rectal: Deferred Extremities: No calf tenderness, Normal capillary refill, Normal inspection, Normal range of motion, Non-tender, No pedal edema Musculoskeletal : Apperance: Normal Neurologic: Alert, house admin II-XII nml as Tested, No Motor Deficits, Normal Affect, Normal Mood, No Sensory Deficits Cerebellar Function: NOT DONE Reflexes: NOT DONE Skin: Dry, Normal Color, Warm Peripheral Pulses: 3+ Radial (R), 3+ Radial (L) Lymphatic: No Adenopathy Was a procedure done? Was a procedure done?: No GI differential Dx Differential Diagnosis: Constipation, Diverticular disease, Esophagitis, Gastritis/PUD, Gastroenteritis, Food Poisoning, Viral X-Ray, Labs, Meds, VS Vital Signs Date Time Temp Pulse Resp B/P (MAP) Pulse Ox O2 Delivery O2 Flow Rate FiO2 12/07/24 10:27 90 19 150/102 12/07/24 08:52 97.9 99 20 153/90 100 97.9 Lab Test 12/07/24 09:08 Range/Units White Blood Count 13.5 H 4.4-10.8 10^3/uL Red Blood Count 5.47 4.5-5.90 10^6/uL Hemoglobin 17.1 13.5-17.5 g/dL Hematocrit 48.9 41.0-53.0 % Mean Corpuscular Volume 89.5 80.0-100.0 fL Mean Corpuscular Hemoglobin 31.3 28.0-32.0 pg Mean Corpuscular Hemoglobin Concent 35.0 32.0-36.0 g/dL Red Cell Distribution Width 13.6 11.8-14.3 % Platelet Count 309 140-450 10^3/uL Mean Platelet Volume 9.6 6.9-10.8 fL Neutrophils (%) (Auto) 82.6 H 37.0-80.0 % Lymphocytes (%) (Auto) 14.0 10.0-50.0 % Monocytes (%) (Auto) 3.0 0.0-12.0 % Eosinophils (%) (Auto) 0.0 0.0-7.0 % Basophils (%) (Auto) 0.4 0.0-2.0 % Neutrophils # (Auto) 11.2 H 1.6-8.6 10 ^3/uL Lymphocytes # (Auto) 1.9 0.4-5.4 10 ^3/uL Monocytes # (Auto) 0.4 0-1.3 10 ^3/uL Eosinophils # (Auto) 0 0-0.8 10 ^3/uL Basophils # (Auto) 0 0-0.2 10 ^3/uL Nucleated Red Blood Cells 0.2 % Sodium Level 142 136-145 mmol/L Potassium Level 3.6 3.5-5.1 mmol/L Chloride Level 105 98-107 mmol/L Carbon Dioxide Level 19 L 20-31 mmol/L Anion Gap 18 H 5-15 Blood Urea Nitrogen 8 L 9-23 mg/dL Creatinine 0.87 0.700-1.30 mg/dL Glomerular Filtration Rate Calc 121 >90 mL/min BUN/Creatinine Ratio 9.2 L 10.0-20.0 Serum Glucose 137 H 74-106 mg/dL Calcium Level 10.3 8.7-10.4 mg/dL Current Medications Medications (Trade) Dose Ordered Sig/Makeda Route Start Time Stop Time Status Last Admin Sodium Chloride 1,000 ml @ 1,000 mls/hr Q1H ONCE IV 12/07/24 09:00 12/07/24 09:59 DC 12/07/24 10:22 Ondansetron HCl (Zofran) 4 mg ONCE ONCE IV 12/07/24 09:00 12/07/24 09:01 DC 12/07/24 10:28 Morphine Sulfate 4 mg ONCE ONCE IV 12/07/24 09:00 12/07/24 09:01 DC 12/07/24 10:[address] [address] Ph: [phone] DIAGNOSTIC IMAGING Diagnostic Imaging Report : [id number] Signed PATIENT: LON DONG ACCT: [id number] UNIT: [id number] : 1995 LOC: ER ROOM / BED: / AGE / SEX: 29 / M ADM STATUS: REG ER SERVICE [id number] ORDERING PHYSICIAN: JAM SCOTT MD PROCEDURE(s): ABPL - CT AB PEL WO CON-NO ORAL OR IV REASON: enteritis ORDER NUMBER(s): [id number], ACCESSION NUMBER(s): [id number] CT abdomen and pelvis without contrast INDICATION: enteritis Comparison: 10/15/2024 TECHNIQUE: Serial axial images were performed through the abdomen and pelvis and then reformatted in the sagittal and coronal plane. All CT scans at this medical facility are performed using dose modulation techniques as appropriate to a p erformed exam including the following: Automated exposure control was utilized; adjustment of the MA and/or KvP according to patient size; and use of iterative reconstruction technique. FINDINGS: Liver and spleen are normal in size without focal mass. No renal masses, stones or hydronephrosis. No masses or enlargement of the adrenal glands or pancreas. No biliary dilatation. Gallbladder has been removed. No distention of bowel loops to suggest mechanical obstruction of bowel. The appendix is normal in appearance. No free fluid. Within the pelvis, bladder is smooth walled without stones. No abnormal masses or fluid collections. IMPRESSION: 1. No signs of enteritis. No acute pathology is present in the abdomen or pelvis. Note made that evaluation of the bowel wall can not be made due to lack of IV contrast Computed Tomographic Radiation Dosimetry Report: Total CTDI vol = 22.9 mGy Total DLP = 14 12 mGy-cm Low dose protocols were performed. Patient alert. Complaining of abdominal pain. Vitals stable. Answering questions. Abdomen is soft tender. Possible gastroenteritis. Establish intravenous access. Was given fluids. Was given morphine. Was given Zofran. CT scan of the abdomen reviewed does not show any acute changes. WBC slightly elevated. Possible dehydration. Continues to have abdominal pain. Explained to the patient. Continue monitoring. X-Ray, Labs, Meds, VS Comment CT abdomen and pelvis without contrast INDICATION: enteritis Comparison: 10/15/2024 TECHNIQUE: Serial axial images were performed through the abdomen and pelvis and then reformatted in the sagittal and coronal plane. All CT scans at this medical facility are performed using dose modulation techniques as appropriate to a performed exam including the following: Automated exposure control was utilized; adjustment of the MA and/or KvP according to patient size; and use of iterative reconstruction technique. FINDINGS: Liver and spleen are normal in size without focal mass. No renal masses, stones or hydronephrosis. No masses or enlargement of the adrenal glands or pancreas. No biliary dilatation. Gallbladder has been removed. No distention of bowel loops to suggest mechanical obstruction of bowel. The appendix is normal in appearance. No free fluid. Within the pelvis, bladder is smooth walled without stones. No abnormal masses or fluid collections. IMPRESSION: 1. No signs of enteritis. No acute pathology is present in the abdomen or pelvis. Note made that evaluation of the bowel wall can not be made due to lack of IV contrast Computed Tomographic Radiation Dosimetry Report: Total CTDI vol = 22.9 mGy Total DLP = 14 12 mGy-cm Low dose protocols were performed. Time of 1ST Reevaluation: 09:05 Reevaluation 1ST: Unchanged Time of 2ND Reevaluation: 11:54 Reevaluation 2ND: Improved Patient Education/Counseling: Diagnosis, Treatment, Prognosis Family Education/Counseling: No Family Present SEPSIS Sepsis Screen Date sepsis recognized/suspect: Dec 07, 2024 Time Sepsis recognized/suspect: 851 Recent Procedure: No On Antibiotic Therapy: No Respiratory Rate >20: No Heart Rate >90: Yes Temp<36 C (96.8 F) or >38.3 C: No SBP <90 or MAP <65 mmHG: No New Acute Mental Status Change: No Is the patient on CPAP, BIPAP,: No Physician Orders Ct Ab Pel Wo Con-No Oral Or Iv (12/07/24 08:55) Drug Screen (12/07/24 08:55) Vital Signs Date Time Temp Pulse Resp B/P (MAP) Pulse Ox O2 Delivery O2 Flow Rate FiO2 12/07/24 10:27 90 19 150/102 12/07/24 08:52 97.9 99 20 153/90 100 97.9 Laboratory Tests Test 12/07/24 09:08 White Blood Count 13.5 10^3/uL (4.4-10.8) H Medications Medications Dose Ordered Sig/Makeda Route Start Time Stop Time Status Last Admin Dose Admin Morphine Sulfate 4 mg ONCE ONCE IV 12/07/24 09:00 12/07/24 09:01 DC 12/07/24 10:27 Ondansetron HCl 4 mg ONCE ONCE IV 12/07/24 09:00 12/07/24 09:01 DC 12/07/24 10:28 Sodium Chloride 1,000 ml @ 1,000 mls/hr Q1H ONCE IV 12/07/24 09:00 12/07/24 09:59 DC 12/07/24 10:22 Departure 1 Departure Time of Disposition: 09:15 Impression: Primary Impression: Intractable nausea and vomiting Additional Impressions: Acute abdominal pain Uncontrolled diabetes mellitus Qualified Codes: E13.65 - Other specified diabetes mellitus with hyperglycemia Disposition: ADMITTED INPATIENT Admit to: Med Surg Condition: Guarded Critical Care Note Critical Care Time?: No Stability Stability form required: No I personally scribed for JAM SCOTT MD ([email or web address]) on 12/07/24 at 09:07. Electronically submitted by Lupis Crews ([facility]). I personally scribed for JAM SCOTT MD ([email or web address]) on 12/07/24 at 10:01. Electronically submitted by Lupis Crews ([facility]). I personally scribed for JAM SCOTT MD ([email or web address]) on 12/07/24 at 11:11. Electronically submitted by Alis Mccrary ([email or web address]). JAM SCOTT MD Dec 07, 2024 09:07
[2024-12-07 09:38] LABS: Hematocrit 48.9 % (41.0-53.0); Hemoglobin 17.1 g/dL (13.5-17.5); Mean Corpuscular Hemoglobin 31.3 pg (28.0-32.0); Mean Corpuscular Volume 89.5 fL (80.0-100.0); Nucleated Red Blood Cells % 0.2 %
[2024-12-07 09:41] LABS: Chloride 105 mmol/L (98-107); Potassium 3.6 mmol/L (3.5-5.1); Sodium 142 mmol/L (136-145)
[2024-12-07 09:42] LABS: Anion Gap 18 (5-15)
[2024-12-07 09:43] LABS: Calcium 10.3 mg/dL (8.7-10.4)
--- NOTE | 2024-12-07 09:43 | DVH ---
CT abdomen and pelvis without contrast INDICATION: enteritis Comparison: 10/15/2024 TECHNIQUE: Serial axial images were performed through the abdomen and pelvis and then reformatted in the sagittal and coronal plane. All CT scans at this medical facility are performed using dose modula tion techniques as appropriate to a performed exam including the following: Automated exposure contro l was utilized; adjustment of the MA and/or KvP according to patient size; and use of iterative recon struction technique. FINDINGS: Liver and spleen are normal in size without focal mass. No renal masses, stones or hydronep hrosis. No masses or enlargement of the adrenal glands or pancreas. No biliary dilatation. Gallbladde r has been removed. No distention of bowel loops to suggest mechanical obstruction of bowel. The appe ndix is normal in appearance. No free fluid. Within the pelvis, bladder is smooth walled without ston es. No abnormal masses or fluid collections. IMPRESSION: 1. No signs of enteritis. No acute pathology is present in the abdomen or pelvis. Note made that eval uation of the bowel wall can not be made due to lack of IV contrast Computed Tomographic Radiation Dosimetry Report: Total CTDI vol = 22.9 mGy Total DLP = 14 12 mGy-cm L ow dose protocols were performed.
[2024-12-07 09:48] LABS: BUN/Creatinine Ratio 9.2 (10.0-20.0); Blood Urea Nitrogen 8 mg/dL (9-23); Carbon Dioxide 19 mmol/L (20-31); Glucose 137 mg/dL (74-106)
[2024-12-07] MEDS: SODIUM CHLORIDE 0.9% 1,000 ML IV ONE (10:22)
[2024-12-07] MEDS: MORPHINE SULFATE 4 MG/ML SYR/VIAL IV ONE (10:27)
[2024-12-07] MEDS: ONDANSETRON HCL 4 MG/2 ML VIAL IV ONE (10:28)
[2024-12-07] MEDS: SODIUM CHLORIDE 0.9% 1,000 ML IVB ONE (13:54)
--- NOTE | 2024-12-07 13:56 | DVHHP2 ---
History of Present Illness History of Present Illness 29 y.o male presents to the ED via EMS for a chief complaint of diffused abdominal pain associated with chills, malaise, nausea and vomiting that started yesterday. Patient describes pain as sharp, worse on palpation, and is constant with no alleviating factors. Patient does mention similar flare up in the past x a couple months ago that had subsided on its own. He has a hx of a cholecystectomy. No diarrhea, fever, hematemesis, dysuria, hematuria. Review of Systems Constitutional: Yes: Fever, Chills; No: Sweats, Weakness, Malaise, Other Respiratory: No: Cough, Dry, Shortness of breath, SOB with excertion, Wheezing, Hemoptysis, Pleuritic Pain, Sputum, Wheezing, Other Cardiovascular: No: Chest Pain, Palpitations, Orthopnea, Paroxysmal Noc. Dyspnea, Edema, Lt Headedness, Other Gastrointestinal: Nausea, Vomiting, Abdominal Pain, Constipation; No: Diarrhea, Melena, Hematochezia, Other Neurological: No: Weakness, Numbness, Incoordination, Change in speech, Confusion, Seizures, Other Allergies: Coded Allergies: NO KNOWN ALLERGIES (Unverified , 02/05/21) Exam Vital Signs Vital Signs Date Time Temp Pulse Resp B/P (MAP) Pulse Ox O2 Delivery O2 Flow Rate FiO2 12/07/24 10:27 90 19 150/102 12/07/24 08:52 97.9 100 97.9 Exam GEN: Appears in distress HEENT: NC/AT; MMM. CV: RRR, no m/r/g. LUNGS: CTAB, no w/r/c. ABD: Epigastrium tender to palpation, hypoactive bowel sounds, EXT: skin Warm, well perfused. no rashes. No clubbing, cyanosis, or edema. NEURO: Ambulating with no limitations. No focal deficits. Labs/Xrays Labs Test 12/07/24 09:08 Range/Units White Blood Count 13.5 H 4.4-10.8 10^3/uL Red Blood Count 5.47 4.5-5.90 10^6/uL Hemoglobin 17.1 13.5-17.5 g/dL Hematocrit 48.9 41.0-53.0 % Mean Corpuscular Volume 89.5 80.0-100.0 fL Mean Corpuscular Hemoglobin 31.3 28.0-32.0 pg Mean Corpuscular Hemoglobin Concent 35.0 32.0-36.0 g/dL Red Cell Distribution Width 13.6 11.8-14.3 % Platelet Count 309 140-450 10^3/uL Mean Platelet Volume 9.6 6.9-10.8 fL Neutrophils (%) (Auto) 82.6 H 37.0-80.0 % Lymphocytes (%) (Auto) 14.0 10.0-50.0 % Monocytes (%) (Auto) 3.0 0.0-12.0 % Eosinophils (%) (Auto) 0.0 0.0-7.0 % Basophils (%) (Auto) 0.4 0.0-2.0 % Neutrophils # (Auto) 11.2 H 1.6-8.6 10 ^3/uL Lymphocytes # (Auto) 1.9 0.4-5.4 10 ^3/uL Monocytes # (Auto) 0.4 0-1.3 10 ^3/uL Eosinophils # (Auto) 0 0-0.8 10 ^3/uL Basophils # (Auto) 0 0-0.2 10 ^3/uL Nucleated Red Blood Cells 0.2 % Sodium Level 142 136-145 mmol/L Potassium Level 3.6 3.5-5.1 mmol/L Chloride Level 105 98-107 mmol/L Carbon Dioxide Level 19 L 20-31 mmol/L Anion Gap 18 H 5-15 Blood Urea Nitrogen 8 L 9-23 mg/dL Creatinine 0.87 0.700-1.30 mg/dL Glomerular Filtration Rate Calc 121 >90 mL/min BUN/Creatinine Ratio 9.2 L 10.0-20.0 Serum Glucose 137 H 74-106 mg/dL Calcium Level 10.3 8.7-10.4 mg/dL SEPSIS Sepsis Screen Date sepsis recognized/suspect: Dec 07, 2024 Time Sepsis recognized/suspect: 851 Recent Procedure: No On Antibiotic Therapy: No Respiratory Rate >20: No Heart Rate >90: Yes Temp<36 C (96.8 F) or >38.3 C: No SBP <90 or MAP <65 mmHG: No New Acute Mental Status Change: No Is the patient on CPAP, BIPAP,: No Physician Orders Ct Ab Pel Wo Con-No Oral Or Iv (12/07/24 08:55) Drug Screen (12/07/24 08:55) Vital Signs Date Time Temp Pulse Resp B/P (MAP) Pulse Ox O2 Delivery O2 Flow Rate FiO2 12/07/24 10:27 90 19 150/102 12/07/24 08:52 97.9 99 20 153/90 100 97.9 Laboratory Tests Test 12/07/24 09:08 White Blood Count 13.5 10^3/uL (4.4-10.8) H Medications Medications Dose Ordered Sig/Makeda Route Start Time Stop Time Status Last Admin Dose Admin Morphine Sulfate 4 mg ONCE ONCE IV 12/07/24 09:00 12/07/24 09:01 DC 12/07/24 10:27 4 MG Ondansetron HCl 4 mg ONCE ONCE IV 12/07/24 09:00 12/07/24 09:01 DC 12/07/24 10:28 4 MG Sodium Chloride 1,000 ml @ 1,000 mls/hr Q1H ONCE IV 12/07/24 09:00 12/07/24 09:59 DC 12/07/24 10:22 1,000 MLS/HR Assessment/Plan Assessment/Plan 12/07: Patient had snacks yesterday chips and soda, after which patient developed acute sudden onset abdominal pain with more than 10 episodes of emesis nonbloody nonbilious, pain has continued today resulting in ED visit. Patient unable to tolerate any p.o., also no bowel movements recently,. We will admit patient for gastroenteritis with sepsis, patient also has AgMA Diagnosis: Sepsis due to below Gastroenteritis, acute, infectious etiology likely Leukocytosis Neutrophilia Tachycardia Anion gap metabolic acidosis Plan: IV antibiotics Check lactic acidosis Continue clear liquid diet as tolerated only, anti emetics prn Analgesia prn Med surge Full code Plan discussed with: Patient Date of Service: Dec 07, 2024 Billing Provider: NIDHI WADSWORTH MD Common Visit Codes: [id number] INP/OBS CARE (HIGH) Secondary Visit Codes: [id number] CARE PLAN 30 MINUTES NIDHI WADSWORTH MD Dec 07, 2024 13:56
[2024-12-07] MEDS ORDERED: ACETAMINOPHEN 325 MG TAB PO PRN (14:00)
[2024-12-07] MEDS: MORPHINE SULFATE INJ 2 MG/ml SYRG IV PRN (16:05)
[2024-12-07] MEDS: ONDANSETRON HCL 4 MG/2 ML VIAL IV PRN (16:11)
[2024-12-07] MEDS: SODIUM CHLORIDE 0.9% 1,000 ML IV SCH (16:12)
[2024-12-07 16:36] VITALS: PULSE 82; RESP 18; O2SAT 98
[2024-12-07 16:38] VITALS: BP 127/62; PULSE 82; RESP 18; TEMP 98.6; O2SAT 98
[2024-12-07 17:00] VITALS: BP 167/82; PULSE 82; RESP 17; TEMP 98.6; O2SAT 98
[2024-12-07 17:13] LABS: Cannabinoid Screen, Urine Pos (NEGATIVE); Opiate Scree,Urine Pos (NEGATIVE)
[2024-12-07 17:14] LABS: Amphetamine Screen, Urine Neg (NEGATIVE); Barbiturate Scree,Urine Neg (NEGATIVE); Benzodiazephine Screen, Urine Neg (NEGATIVE); Cocaine Screen, Urine Neg (NEGATIVE); Phencyclidine Screen, Urine Neg (NEGATIVE)
[2024-12-07 18:00] VITALS: BP 151/85; PULSE 86; PULSE 99; RESP 18; TEMP 98.6; O2SAT 100; O2SAT 99
[2024-12-07] MEDS: HYDROcodone-ACET 5/325MG TAB PO PRN (20:08)
[2024-12-07 21:00] VITALS: BP 154/76; PULSE 98; RESP 18; TEMP 98.2; O2SAT 99
[2024-12-08] VITALS (8 sets, daily range): BP systolic 112–133; BP diastolic 53–75; PULSE 68–87; RESP 14–18; TEMP 98–98.5; O2SAT 98–100
[2024-12-08 06:19] LABS: Hematocrit 41.8 % (41.0-53.0); Hemoglobin 14.9 g/dL (13.5-17.5); Mean Corpuscular Hemoglobin 32.0 pg (28.0-32.0); Mean Corpuscular Volume 90.1 fL (80.0-100.0); Nucleated Red Blood Cells % 0.1 %
[2024-12-08 06:37] LABS: Albumin 4.3 g/dL (3.2-4.8); Alkaline Phosphatase 80 U/L (46-116); Anion Gap 12 (5-15); BUN/Creatinine Ratio 7.1 (10.0-20.0); Calcium 9.5 mg/dL (8.7-10.4); Carbon Dioxide 26 mmol/L (20-31); Chloride 106 mmol/L (98-107); Glucose 100 mg/dL (74-106); Sodium 144 mmol/L (136-145); Total Protein 7.5 g/dL (5.7-8.2)
[2024-12-08 06:38] LABS: Bilirubin, Total 1.1 mg/dL (0.2-1.0)
[2024-12-08 06:49] LABS: Alanine Aminotransferase 82 U/L (7-40); Blood Urea Nitrogen 6 mg/dL (9-23); Potassium 3.5 mmol/L (3.5-5.1)
--- NOTE | 2024-12-08 09:52 | DVHPN2 ---
Subjective Patient is seen at bedside today, improving symptoms. Reviewed: H&P Changes from previous H/P or p: No Changes General: Per HPI Cardiovascular: No Chest Pain, No Palpitations, No Orthopnea, No Paroxysmal Noc. Dyspnea, No Edema, No Lt Headedness, No Other Respiratory: No Cough, No Dry, No Shortness of breath, No SOB with excertion, No Wheezing, No Hemoptysis, No Pleuritic Pain, No Sputum, No Other Gastrointestinal: Nausea, Vomiting, Abdominal Pain; No Diarrhea; Constipation; No Melena, No Hematochezia, No Other Objective Vitals Vital Signs Date Time Temp Pulse Resp B/P (MAP) Pulse Ox O2 Delivery O2 Flow Rate FiO2 12/08/24 09:10 98.1 78 14 126/53 (77) 98 98.1 12/08/24 08:00 Room Air* 0 21 Intake/Output Intake and Output 12/08/24 07:00 Intake Total 946 ml Balance 946 ml Intake Oral 746 ml IV Total 200 ml # Voids 5 Exam HEENT: NC/AT; MMM. CV: RRR, no m/r/g. LUNGS: CTAB, no w/r/c. ABD: Epigastrium tender to palpation, hypoactive bowel sounds, EXT: skin Warm, well perfused. no rashes. No clubbing, cyanosis, or edema. NEURO: Ambulating with no limitations. No focal deficits. Medications Current Medications Medications Dose Ordered Sig/Makeda Route Start Time Stop Time Status Last Admin Dose Admin Sodium Chloride 1,000 ml @ 120 mls/hr Q8H20M IV 12/07/24 14:00 12/08/24 06:55 120 MLS/HR Acetaminophen/ Hydrocodone Bitart 1 tab Q4HP PRN PO 12/07/24 14:00 12/08/24 04:59 1 TAB Ondansetron HCl 4 mg Q4HP PRN IV 12/07/24 14:00 12/07/24 16:11 4 MG Acetaminophen 650 mg Q6HP PRN PO 12/07/24 14:00 Morphine Sulfate 2 mg Q4HPRN PRN IV 12/07/24 14:00 12/07/24 16:05 2 MG Ceftriaxone Sodium 50 ml @ 100 mls/hr DAILY@09 IV 12/08/24 09:00 12/08/24 09:18 100 MLS/HR Metronidazole 100 ml @ 100 mls/hr Q8HR IV 12/07/24 22:00 12/08/24 05:01 100 MLS/HR Laboratory Results Laboratory Tests 12/08/24 05:04 Chemistry Test 12/08/24 05:04 Albumin 4.3 g/dL (3.2-4.8) Calcium Level 9.5 mg/dL (8.7-10.4) Total Protein 7.5 g/dL (5.7-8.2) LFT Test 12/08/24 05:04 Alanine Aminotransferase (ALT) 82 U/L (7-40) H Alkaline Phosphatase 80 U/L (46-116) Aspartate Amino Transferase (AST) 40 U/L (13-40) Total Bilirubin 1.1 mg/dL (0.2-1.0) H Labs and/or images reviewed: Labs reviewed by me, Image(s) reviewed by me Assessment/Plan Assessment/Plan 12/07: Patient had snacks yesterday chips and soda, after which patient developed acute sudden onset abdominal pain with more than 10 episodes of emesis nonbloody nonbilious, pain has continued today resulting in ED visit. Patient unable to tolerate any p.o., also no bowel movements recently,. We will admit patient for gastroenteritis with sepsis, patient also has AgMA 12/08: Patient is feeling better, wants to try diet advanced to regular solid,. Still having some pain epigastrium. Bowel sounds present, no distention no rigidity no guarding. Lactic acid was not measured yesterday, anion gap was likely from lactic acidosis. Anion gap is closed this morning. Mild T bili and hepatic panel showing AST elevation. CT abdomen had no concern for biliary or gallbladder related issues, he has history of cholecystectomy and has been having these issues. We will get right upper quadrant ultrasound. Continuing IV antibiotics. Diagnosis: Sepsis due to below Gastroenteritis, acute, infectious etiology likely Leukocytosis Neutrophilia Tachycardia Anion gap metabolic acidosis , lactic acidosis likely Plan: IV antibiotics Check lactic acidosis Continue clear liquid diet as tolerated only, anti emetics prn Analgesia prn Med surge Full code Plan discussed with: Patient My Orders Orders - NIDHI WADSWORTH MD Procedure Category Date Status Time Admit ADMIT 12/07/24 Transmitted 13:56 Code Status CODE 12/07/24 Transmitted 13:56 Sodium Chloride 0.9% PHA 12/07/24 In Process 14:00 Ondansetron Hcl PHA 12/07/24 In Process (Zofran) 14:00 Acetaminophen Tablet PHA 12/07/24 In Process (Tylenol Tablet) 14:00 Clear Liq Diet DIET 12/07/24 Transmitted Dinner Bedrest With Bathroom MARY 12/07/24 In Process Privileg 13:56 Morphine Sulfate PHA 12/07/24 In Process Injection 14:00 Hydrocodone-Acet PHA 12/07/24 In Process 5/325mg Tab ([place] 14:00 Ceftriaxone 1gm/50ml PHA 12/08/24 In Process (Rocephin) 09:00 Metronidazole PHA 12/07/24 In Process 500mg/100ml (Flagyl 22:00 Date of Service: Dec 08, 2024 Billing Provider: NIDHI WADSWORTH MD Common Visit Codes: [id number] INP/OBS CARE(HIGH) NIDHI WADSWORTH MD Dec 08, 2024 09:52
--- NOTE | 2024-12-08 10:34 | DVH ---
ULTRASOUND ABDOMEN, LIMITED RIGHT UPPER QUADRANT: REASON FOR EXAM: RUQ, Hyperbilirubinemia, history cholecystectomy TECHNIQUE: Real-time sector scans in the transverse and longitudinal planes were obtained through th e right upper quadrant of the abdomen. FINDINGS: The liver is borderline enlarged at 16.9 cm in length. The liver is diffusely echogenic. There is hepatopetal flow in the portal vein. There is no intrahepatic nor extrahepatic biliary ducta l dilatation. The common bile duct measures 8 mm. The gallbladder is surgically absent. The visualized portion of the pancreas is unremarkable. The right kidney measures 11.5 cm. No hydronephrosis or nephrolithiasis is identified. There is no evidence of right renal mass or cyst. The visualized portions of the abdominal aorta demonstrate no evidence of aneurysmal dilatation. The visualized inferior vena cava is unremarkable. There is no free fluid identified in the right upper quadrant. IMPRESSION: Borderline hepatomegaly. The liver is diffusely echogenic which may be secondary to steatosis or anot her diffuse hepatic process. Correlate clinically and with liver function tests. The common bile duct is mildly enlarged, however, this is frequently seen post cholecystectomy. It is similar in size to the prior study.
[2024-12-09 01:00] VITALS: BP 103/50; PULSE 72; RESP 17; TEMP 98; O2SAT 93
[2024-12-09 05:00] VITALS: BP 113/56; PULSE 74; RESP 16; TEMP 98.1; O2SAT 97
[2024-12-09 07:16] LABS: Alkaline Phosphatase 74 U/L (46-116); Calcium 8.9 mg/dL (8.7-10.4); Carbon Dioxide 28 mmol/L (20-31); Chloride 106 mmol/L (98-107); Glucose 88 mg/dL (74-106)
[2024-12-09 07:17] LABS: Albumin 4.1 g/dL (3.2-4.8); Anion Gap 10 (5-15); BUN/Creatinine Ratio 8.0 (10.0-20.0); Bilirubin, Total 0.8 mg/dL (0.2-1.0); Sodium 144 mmol/L (136-145); Total Protein 7.2 g/dL (5.7-8.2)
[2024-12-09 07:21] LABS: Alanine Aminotransferase 63 U/L (7-40); Blood Urea Nitrogen 7 mg/dL (9-23); Potassium 3.4 mmol/L (3.5-5.1)
[2024-12-09 08:00] VITALS: O2SAT 100
[2024-12-09 08:36] VITALS: BP 105/59; PULSE 60; RESP 16; TEMP 98.5; O2SAT 98
--- NOTE | 2024-12-09 10:06 | DVHPN2 ---
Subjective Patient is seen at bedside today, improving symptoms. Reviewed: H&P Changes from previous H/P or p: No Changes General: Per HPI Cardiovascular: No Chest Pain, No Palpitations, No Orthopnea, No Paroxysmal Noc. Dyspnea, No Edema, No Lt Headedness, No Other Respiratory: No Cough, No Dry, No Shortness of breath, No SOB with excertion, No Wheezing, No Hemoptysis, No Pleuritic Pain, No Sputum, No Other Gastrointestinal: Nausea, Vomiting, Abdominal Pain; No Diarrhea; Constipation; No Melena, No Hematochezia, No Other Objective Vitals Vital Signs Date Time Temp Pulse Resp B/P (MAP) Pulse Ox O2 Delivery O2 Flow Rate FiO2 12/09/24 08:36 98.5 60 16 105/59 (74) 98 98.5 12/08/24 20:00 Room Air* 0 21 Intake/Output Intake and Output 12/09/24 07:00 Intake Total 3437 ml Balance 3437 ml Intake Oral 3187 ml IV Total 250 ml # Voids 6 # Bowel Movements 1 Exam HEENT: NC/AT; MMM. CV: RRR, no m/r/g. LUNGS: CTAB, no w/r/c. ABD: Epigastrium tender to palpation, hypoactive bowel sounds, EXT: skin Warm, well perfused. no rashes. No clubbing, cyanosis, or edema. NEURO: Ambulating with no limitations. No focal deficits. Medications Current Medications Medications Dose Ordered Sig/Makeda Route Start Time Stop Time Status Last Admin Dose Admin Sodium Chloride 1,000 ml @ 120 mls/hr Q8H20M IV 12/07/24 14:00 12/09/24 00:49 120 MLS/HR Acetaminophen/ Hydrocodone Bitart 1 tab Q4HP PRN PO 12/07/24 14:00 12/08/24 21:19 1 TAB Ondansetron HCl 4 mg Q4HP PRN IV 12/07/24 14:00 12/08/24 21:18 4 MG Acetaminophen 650 mg Q6HP PRN PO 12/07/24 14:00 Morphine Sulfate 2 mg Q4HPRN PRN IV 12/07/24 14:00 12/08/24 13:38 2 MG Ceftriaxone Sodium 50 ml @ 100 mls/hr DAILY@09 IV 12/08/24 09:00 12/08/24 09:18 100 MLS/HR Metronidazole 100 ml @ 100 mls/hr Q8HR IV 12/07/24 22:00 12/09/24 05:46 100 MLS/HR Laboratory Results Laboratory Tests 12/08/24 05:04 12/09/24 05:38 Chemistry Test 12/09/24 05:38 Albumin 4.1 g/dL (3.2-4.8) Calcium Level 8.9 mg/dL (8.7-10.4) Total Protein 7.2 g/dL (5.7-8.2) LFT Test 12/09/24 05:38 Alanine Aminotransferase (ALT) 63 U/L (7-40) H Alkaline Phosphatase 74 U/L (46-116) Aspartate Amino Transferase (AST) 36 U/L (13-40) Total Bilirubin 0.8 mg/dL (0.2-1.0) Assessment/Plan Assessment/Plan 12/07: Patient had snacks yesterday chips and soda, after which patient developed acute sudden onset abdominal pain with more than 10 episodes of emesis nonbloody nonbilious, pain has continued today resulting in ED visit. Patient unable to tolerate any p.o., also no bowel movements recently,. We will admit patient for gastroenteritis with sepsis, patient also has AgMA 12/08: Patient is feeling better, wants to try diet advanced to regular solid,. Still having some pain epigastrium. Bowel sounds present, no distention no rigidity no guarding. Lactic acid was not measured yesterday, anion gap was likely from lactic acidosis. Anion gap is closed this morning. Mild T bili and hepatic panel showing AST elevation. CT abdomen had no concern for biliary or gallbladder related issues, he has history of cholecystectomy and has been having these issues. We will get right upper quadrant ultrasound. Continuing IV antibiotics. 12/09: Patient is still have some mild nausea, bowel sounds normoactive, some diffuse wake tender to palpation. Nursing did not change diet or yesterday, we will change right now to regular to see if patient tolerates. If patient tolerates we will be stable for discharge, note T bili is resolved ultrasound right upper quadrant has some mild dilation of bile duct which can be normal status post cholecystectomy, T bili resolved, LFTs continue to resemble Swift. Patient advised to include monocytosis daily routine. Diagnosis: Sepsis due to below Gastroenteritis, acute, infectious etiology likely Leukocytosis Neutrophilia Tachycardia Anion gap metabolic acidosis , lactic acidosis likely Plan: IV antibiotics Check lactic acidosis Continue clear liquid diet as tolerated only, anti emetics prn Analgesia prn Med surge Full code My Orders Orders - NIDHI WADSWORTH MD Procedure Category Date Status Time Regular Diet DIET 12/09/24 Transmitted Lunch NIDHI WADSWORTH MD Dec 09, 2024 10:06
[2024-12-09 12:57] VITALS: BP 121/65; PULSE 62; RESP 18; TEMP 98.6; O2SAT 98
[2024-12-09] MEDS ORDERED: ZOFR4T PO (13:48)
[2024-12-09] MEDS ORDERED: AUG875T PO (13:48)
--- NOTE | 2024-12-09 13:49 | DVHDS2 ---
Discharge Summary Date of Admission Dec 07, 2024 at 13:56 Date of Discharge: Dec 09, 2024 Labs/Diagnostic Data: Laboratory Results Test 12/09/24 05:38 12/08/24 05:04 12/07/24 16:25 Sodium Level 144 mmol/L (136-145) Potassium Level 3.4 mmol/L (3.5-5.1) Chloride Level 106 mmol/L (98-107) Carbon Dioxide Level 28 mmol/L (20-31) Anion Gap 10 (5-15) Blood Urea Nitrogen 7 mg/dL (9-23) Creatinine 0.88 mg/dL (0.700-1.30) Glomerular Filtration Rate Calc 121 mL/min (>90) BUN/Creatinine Ratio 8.0 (10.0-20.0) Serum Glucose 88 mg/dL (74-106) Calcium Level 8.9 mg/dL (8.7-10.4) Total Bilirubin 0.8 mg/dL (0.2-1.0) Aspartate Amino Transferase (AST) 36 U/L (13-40) Alanine Aminotransferase (ALT) 63 U/L (7-40) Alkaline Phosphatase 74 U/L (46-116) Total Protein 7.2 g/dL (5.7-8.2) Albumin 4.1 g/dL (3.2-4.8) White Blood Count 13.2 10^3/uL (4.4-10.8) Red Blood Count 4.64 10^6/uL (4.5-5.90) Hemoglobin 14.9 g/dL (13.5-17.5) Hematocrit 41.8 % (41.0-53.0) Mean Corpuscular Volume 90.1 fL (80.0-100.0) Mean Corpuscular Hemoglobin 32.0 pg (28.0-32.0) Mean Corpuscular Hemoglobin Concent 35.5 g/dL (32.0-36.0) Red Cell Distribution Width 13.4 % (11.8-14.3) Platelet Count 243 10^3/uL (140-450) Mean Platelet Volume 9.7 fL (6.9-10.8) Neutrophils (%) (Auto) 72.0 % (37.0-80.0) Lymphocytes (%) (Auto) 21.3 % (10.0-50.0) Monocytes (%) (Auto) 6.4 % (0.0-12.0) Eosinophils (%) (Auto) 0.1 % (0.0-7.0) Basophils (%) (Auto) 0.2 % (0.0-2.0) Neutrophils # (Auto) 9.5 10 ^3/uL (1.6-8.6) Lymphocytes # (Auto) 2.8 10 ^3/uL (0.4-5.4) Monocytes # (Auto) 0.8 10 ^3/uL (0-1.3) Eosinophils # (Auto) 0 10 ^3/uL (0-0.8) Basophils # (Auto) 0 10 ^3/uL (0-0.2) Nucleated Red Blood Cells 0.1 % Urine Opiates Screen Pos (NEGATIVE) Urine Fentanyl Screen Neg (NEGATIVE) Urine Barbiturates Screen Neg (NEGATIVE) Urine Phencyclidine Screen Neg (NEGATIVE) Urine Amphetamines Screen Neg (NEGATIVE) Urine Benzodiazepines Screen Neg (NEGATIVE) Urine Cocaine Screen Neg (NEGATIVE) Urine Cannabinoids Screen Pos (NEGATIVE) Other Laboratory Tests 12/09/24 05:38 12/08/24 05:04 Brief Hx & Hospital Course: 29 y.o male presents to the ED via EMS for a chief complaint of diffused abdominal pain associated with chills, malaise, nausea and vomiting that started yesterday. Patient describes pain as sharp, worse on palpation, and is constant with no alleviating factors. Patient does mention similar flare up in the past x a couple months ago that had subsided on its own. He has a hx of a cholecystectomy. No diarrhea, fever, hematemesis, dysuria, hematuria. 12/07: Patient had snacks yesterday chips and soda, after which patient developed acute sudden onset abdominal pain with more than 10 episodes of emesis nonbloody nonbilious, pain has continued today resulting in ED visit. Patient unable to tolerate any p.o., also no bowel movements recently,. We will admit patient for gastroenteritis with sepsis, patient also has AGMA 12/08: Patient is feeling better, wants to try diet advanced to regular solid,. Still having some pain epigastrium. Bowel sounds present, no distention no rigidity no guarding. Lactic acid was not measured yesterday, anion gap was likely from lactic acidosis. Anion gap is closed this morning. Mild T bili and hepatic panel showing AST elevation. CT abdomen had no concern for biliary or gallbladder related issues, he has history of cholecystectomy and has been having these issues. We will get right upper quadrant ultrasound. Continuing IV antibiotics. 12/09: Patient is still have some mild nausea, bowel sounds normoactive, some diffuse wake tender to palpation. Nursing did not change diet or yesterday, we will change right now to regular to see if patient tolerates. If patient tolerates we will be stable for discharge, note Tbili is resolved ultrasound right upper quadrant has some mild dilation of bile duct which can be normal status post cholecystectomy, Tbili resolved, LFTs continue to resemble Swift. Patient advised to include exercise daily routine. Diagnosis: Sepsis due to below Gastroenteritis, acute, infectious etiology likely Leukocytosis Neutrophilia Tachycardia Anion gap metabolic acidosis , lactic acidosis likely Hyperbilirubinemia resolved Status post cholecystectomy Transaminitis, Swift pattern plan: Augmentin 875 twice daily for 3 days Zofran 4 mg as needed up to 3 times daily for nausea Full liquid diet for 1 week or as tolerated, advance as feel comfortable Follow up with PCP to review discharge Condition at Discharge: Fair Final Diagnosis/Problems List Sepsis due to below Gastroenteritis, acute, infectious etiology likely Leukocytosis Neutrophilia Tachycardia Anion gap metabolic acidosis , lactic acidosis likely Hyperbilirubinemia resolved Status post cholecystectomy Transaminitis, Swift pattern Discharge Disposition: Home Discharge Instruct/Medications Diet: See Comment Diet comment: Full liquid diet Activity: No Restrictions, As Tolerated Follow Up/Referral: See below Medications: See below Scheduled Amoxicillin & Pot Clavulanate (Augmentin Tablet), 875 MG PO BID Buprenorphine (Butrans), 1 PATCH TD QWEEKLY, (Reported) Lidocaine (Lidocaine), 1-2 PATCH TOP DAILY, (Reported) Ondansetron Odt 4MG Tab (Zofran Po), 4 MG PO Q6HR Sucralfate (Carafate), 10 ML PO BID Verapamil Hcl (Verapamil Hcl Er), 1 CAP PO DAILY, (Reported) Scheduled PRN Acetaminophen W/ Codeine (Acetaminophen/Codeine), 1 TAB PO Q12HR PRN for MODERATE PAIN (4-6 PAIN SCALE), (Reported) Discharge Statement: "Patient was advised to return to the ER or call 911 if any headaches, dizziness, shortness of breath, chest pain, abdominal pain, bleeding, fevers, or worsening of medical condition. Patient was counseled about treatment plan, medications, possible side effects, patientverbalized understanding. All questions were answered to the best of my ability. This discharge took greater then 30 minutes in planning, reviewing documentation, counseling the patient, and discussing with other team members." Date of Service: Dec 09, 2024 Billing Provider: NIDHI WADSWORTH MD Common Visit Codes: [id number]/[id number] DISCH DAY >30min NIDHI WADSWORTH MD Dec 09, 2024 13:49
== END 2024-12-09 16:30 | disposition home or self-care (01) | DRG 720 ==
LOC: EDBD 08:47 → ER 08:47 → OVERFLOW 13:56 → CENTRAL 18:33
PROVIDERS: ADMIT Student in an Organized Health Care Education/Training Program; ATTEND Student in an Organized Health Care Education/Training Program
DX: A41.9 Sepsis, unspecified organism (principal); E87.20 Acidosis, unspecified; K83.8 Other specified diseases of biliary tract; A09 Infectious gastroenteritis and colitis, unspecified; D72.821 Monocytosis (symptomatic); E11.65 Type 2 diabetes mellitus with hyperglycemia; F41.9 Anxiety disorder, unspecified; R74.01 Elevation of levels of liver transaminase levels; E80.6 Other disorders of bilirubin metabolism; Z90.49 Acquired absence of other specified parts of digestive tract
CPT/HCPCS: 36415; 74176; 76705; 80048; 80053; 80307; 85025; 96361; 96365; 96368; 96375; G0378; J2405; J3490

== ENCOUNTER 2025-02-11 15:02 | Emergency (ER) | payer MEDICAID ==
[~2025-02-11] VITALS: Ht 172.7 cm; Wt 114.0 kg
[~2025-02-11 15:02] MED LIST changes: +AUG875T PO
--- NOTE | 2025-02-11 15:27 | ED.PDOC ---
GI ASSESSMENT HPI Comments 29 year old male presents to the ED with a chief complaint of abdominal pain onset today. Patient states he woke up this morning experiencing epigastric pain as well as nausea/vomiting. Currently rates pain 8/10. Has experienced similar symptoms in the past, was discharged from [facility] on 12/07/24, was admitted for similar symptoms. Last marijuana use was a few days ago. Denies fever, chills, diarrhea, hematemesis, dysuria, hematuria, fever, chills. No other symptoms or modifying factors present at this time. Chief Complaint: Abdominal Pain Time Seen by MD: 15:15 Primary Care Provider: Shaila BACON Reviewed Notes: Medications, Allergies Allergies: Coded Allergies: NO KNOWN ALLERGIES (Unverified , 02/05/21) Home Meds Active Scripts Ondansetron Odt 4MG Tab (ZOFRAN PO) 4 Mg Tb, 4 MG PO Q8HP PRN for 7 Days, #21 TAB ODT TAB-DISSOLVE IN MOUTH, THEN SWALLOW Prov:JESUS GONZALEZ MD 02/11/25 Pantoprazole Sodium Sesquihydr (Protonix) 40 Mg Tab, 40 MG PO DAILY, #30 TAB Prov:JESUS GONZALEZ MD 02/11/25 Amoxicillin & Pot Clavulanate (AUGMENTIN TABLET) 875 Mg Tb, 875 MG PO BID for 3 Days, #6 TAB 0 Refills Prov:NIDHI WADSWORTH MD 12/09/24 Ondansetron Odt 4MG Tab (ZOFRAN PO) 4 Mg Tb, 4 MG PO Q6HR for 5 Days, #20 TAB ODT TAB-DISSOLVE IN MOUTH, THEN SWALLOW Prov:NIDHI WADSWORTH MD 12/09/24 Sucralfate (Carafate) 1 Gm/10 Ml Cristal, 10 ML PO BID for 30 Days, #600 ML 0 Refi lls Prov:ANAYELI CARIAS RESIDENT 06/15/24 Reported Medications Buprenorphine (Butrans) 15 Mcg/Hr Dis, 1 PATCH TD QWEEKLY for 28 Days, #4 06/13/24 Acetaminophen W/ Codeine (Acetaminophen/Codeine) 1 Tab Tab, 1 TAB PO Q12HR PRN for MODERATE PAIN (4-6 PAIN SCALE) for 30 Days, #60 06/13/24 Lidocaine (Lidocaine) 5 % Pad, 1-2 PATCH TOP DAILY for 30 Days, #60 UNWRAP AND APPLY 1 TO 2 PATCHES EXTERNALLLY TO DRY INTACT SKIN DAILY EVERY 12 HOURS ON AND EVERY 12 HOURS OFF. 06/13/24 Verapamil Hcl (Verapamil Hcl Er) 240 Mg Cap, 1 CAP PO DAILY 08/10/22 Information Source: Patient Mode of Arrival: Ambulatory Timing: Hours Duration: Since onset Prehospital treatment: None Quality: Sharp Severity: Moderate Recent: Other (marijuana) Recent Hx of: None Pain Location: Epigastric Modifying Factors: Nothing Associated sign and symptoms: Nausea, Vomiting, Abdominal Pain Past Medical History PAST MEDICAL HISTORY: Anxiety Surgical History: Cholecystectomy Family History Family History: Reviewed,noncontributory to illness Social History Smoker: Non-Smoker Alcohol: Denies ETOH Use Drugs: Marijuana Lives In: Home Constitutional: denies: chills, diaphoresis, fatigue, fever, malaise, sweats, weakness, others EENTM: denies: blurred vision, double vision, ear bleeding, ear discharge, ear drainage, ear pain, ear ringing, eye pain, eye redness, hearing loss, mouth pa in, mouth swelling, nasal discharge, nose bleeding, nose congestion, nose pain, photophobia, tearing, throat pain, throat swelling, voice changes, others Respiratory: denies: cough, hemoptysis, orthopnea, SOB at rest, shortness of breath, SOB with excertion, stridor, wheezing, others Cardiovascular: denies: chest pain, dizzy spells, diaphoresis, Dyspnea on exertion, edema, irregular heart beat, left arm pain, lightheadedness, palpitations, PND, syncope, others Gastrointestinal: reports: abdominal pain, nausea, vomiting; denies: abdomen distended, blood streaked bowels, constipated, diarrhea, dysphagia, difficulty swallowing, hematemesis, melena, poor appetite, poor fluid intake, rectal bleeding, rectal pain, others Genitourinary: denies: burning, dysuria, flank pain, frequency, hematuria, incontinence, penile discharge, penile sore, pain, testicle pain, testicle swelling, urgency, others Neurological: denies: dizziness, fainting, headache, left sided numbness, left sided weakness, numbness, paresthesia, pre-existing deficit, right sided numbness, right sided weakness, seizure, speech problems, tingling, tremors, weakness, others Musculoskeletal: denies: back pain, gout, joint pain, joint swelling, muscle pain, muscle stiffness, neck pain, others Integumetry: denies: bruises, change in color, change in hair/nails, dryness, laceration, lesions, lumps, rash, wounds, others Allergic/Immunocompromised: denies: Difficulty Healing, Frequent Infections, Hives, Itching, others Hematologic/Lymphatic: denies: anemia, blood clots, easy bleeding, easy bruising, swollen glands, others Endocrine: denies: excessive hunger, excessive sweating, excessive thirst, excessive urination, flushing, intolerance to cold, intolerance to heat, unexplained weight gain, unexplained weight loss, others Psychiatric: denies: anxiety, bipolar disorder, depression, hopeless, panic disorder, schizophrenia, sleepless, suicidal, others All Other Systems: Reviewed and Negative Physical Exam General Appearance: Mild Distress HEENT: Normal ENT Inspection, Pharynx Normal, TMs Normal Neck: Full Range of Motion, Non-Tender, Normal, Normal Inspection Respiratory: Chest Non-Tender, Lungs Clear, No Accessory Muscle Use, No Respiratory Distress, Normal Breath Sounds Cardiovascular: No Edema, No JVD, No Murmur, No Gallop, Normal Peripheral Pulses, Regular Rate/Rhythm Breast Exam: Deferred Gastrointestinal: No Organomegaly, Non Tender, No Pulsatile Mass, Normal Bowel Sounds, Soft Genitalia: Deferred Pelvic: Deferred Rectal: Deferred Extremities: No calf tenderness, Normal capillary refill, Normal inspection, Normal range of motion, Non-tender, No pedal edema Musculoskeletal : Apperance: Normal Neurologic: Alert, refrigeration specialist II-XII nml as Tested, No Motor Deficits, Normal Affect, Normal Mood, No Sensory Deficits Cerebellar Function: Normal Reflexes: Normal Skin: Dry, Normal Color, Warm Lymphatic: No Adenopathy Was a procedure done? Was a procedure done?: No GI differential Dx Differential Diagnosis: Gastritis/PUD, Gastroenteritis, Inflammatory BD, Pancreatitis, Electrolyte Imbalance X-Ray, Labs, Meds, VS Vital Signs Date Time Temp Pulse Resp B/P (MAP) Pulse Ox O2 Delivery O2 Flow Rate FiO2 02/11/25 15:05 97.6 98 16 124/99 100 97.6 Lab Test 02/11/25 15:38 Range/Units White Blood Count 12.7 H 4.4-10.8 10^3/uL Red Blood Count 5.33 4.5-5.90 10^6/uL Hemoglobin 16.5 13.5-17.5 g/dL Hematocrit 47.3 41.0-53.0 % Mean Corpuscular Volume 88.7 80.0-100.0 fL Mean Corpuscular Hemoglobin 30.9 28.0-32.0 pg Mean Corpuscular Hemoglobin Concent 34.8 32.0-36.0 g/dL Red Cell Distribution Width 13.1 11.8-14.3 % Platelet Count 308 140-450 10^3/uL Mean Platelet Volume 9.4 6.9-10.8 fL Neutrophils (%) (Auto) 83.6 H 37.0-80.0 % Lymphocytes (%) (Auto) 13.8 10.0-50.0 % Monocytes (%) (Auto) 2.0 0.0-12.0 % Eosinophils (%) (Auto) 0.2 0.0-7.0 % Basophils (%) (Auto) 0.4 0.0-2.0 % Neutrophils # (Auto) 10.7 H 1.6-8.6 10 ^3/uL Lymphocytes # (Auto) 1.8 0.4-5.4 10 ^3/uL Monocytes # (Auto) 0.3 0-1.3 10 ^3/uL Eosinophils # (Auto) 0 0-0.8 10 ^3/uL Basophils # (Auto) 0 0-0.2 10 ^3/uL Nucleated Red Blood Cells 2.2 % Sodium Level 143 136-145 mmol/L Potassium Level 3.9 3.5-5.1 mmol/L Chloride Level 107 98-107 mmol/L Carbon Dioxide Level 22 20-31 mmol/L Anion Gap 14 5-15 Blood Urea Nitrogen 10 9-23 mg/dL Creatinine 0.92 0.700-1.30 mg/dL Glomerular Filtration Rate Calc 117 >90 mL/min BUN/Creatinine Ratio 10.9 10.0-20.0 Serum Glucose 122 H 74-106 mg/dL Calcium Level 10.7 H 8.7-10.4 mg/dL The patient's CBC shows an elevated white blood cell count of 12.7 The chemistry panel is within normal limits At this time, the patient will be discharged and will follow up with the primary care doctor The patient will return to the emergency department's condition worsens The patient understands and agrees with the management. Time of 1ST Reevaluation: 15:45 Reevaluation 1ST: Unchanged Patient Education/Counseling: Diagnosis, Treatment, Prognosis, Need For Follow Up Family Education/Counseling: No Family Present SEPSIS Sepsis Screen Date sepsis recognized/suspect: Feb 11, 2025 Time Sepsis recognized/suspect: 1508 Recent Procedure: No On Antibiotic Therapy: No Respiratory Rate >20: No Heart Rate >90: No Temp<36 C (96.8 F) or >38.3 C: No SBP <90 or MAP <65 mmHG: No New Acute Mental Status Change: No Is the patient on CPAP, BIPAP,: No Physician Orders Urinalysis (02/11/25 15:25) Heplock Iv (02/11/25 15:25) Drug Screen (02/11/25 15:25) Vital Signs Date Time Temp Pulse Resp B/P (MAP) Pulse Ox O2 Delivery O2 Flow Rate FiO2 02/11/25 15:05 97.6 98 16 124/99 100 97.6 Laboratory Tests Test 02/11/25 15:38 White Blood Count 12.7 10^3/uL (4.4-10.8) H Departure 1 Departure Time of Disposition: 16:53 Impression: Primary Impression: Cannabinoid hyperemesis syndrome Disposition: 01 HOME / SELF CARE / HOMELESS Condition: Fair e-Prescriptions Ondansetron Odt 4MG Tab (ZOFRAN PO) 4 Mg Tb 4 MG PO Q8HP PRN for 7 Days, #21 TAB ODT TAB-DISSOLVE IN MOUTH, THEN SWALLOW Prov: JESUS GONZALEZ MD 02/11/25 Pantoprazole Sodium Sesquihydr (Protonix) 40 Mg Tab 40 MG PO DAILY, #30 TAB Prov: JESUS GONZALEZ MD 02/11/25 Discharged With: Self Critical Care Note Critical Care Time?: No Stability Stability form required: No Heart Score Heart Score: Heart Score Response (Comments) Value History N/A 0 EKG N/A 0 Age N/A 0 Risk Factors N/A 0 Troponin N/A 0 Total 0 I personally scribed for JESUS GONZALEZ MD ([email or web address]) on 02/11/25 at 15:27. Electronically submitted by Doris Marcano ([email or web address]). JESUS GONZALEZ MD Feb 11, 2025 15:27
[2025-02-11 15:51] LABS: Hematocrit 47.3 % (41.0-53.0); Hemoglobin 16.5 g/dL (13.5-17.5); Mean Corpuscular Hemoglobin 30.9 pg (28.0-32.0); Mean Corpuscular Volume 88.7 fL (80.0-100.0); Nucleated Red Blood Cells % 2.2 %
[2025-02-11 16:00] LABS: Chloride 107 mmol/L (98-107); Potassium 3.9 mmol/L (3.5-5.1); Sodium 143 mmol/L (136-145)
[2025-02-11 16:01] LABS: Anion Gap 14 (5-15); Carbon Dioxide 22 mmol/L (20-31)
[2025-02-11 16:02] LABS: Calcium 10.7 mg/dL (8.7-10.4)
[2025-02-11 16:06] LABS: BUN/Creatinine Ratio 10.9 (10.0-20.0); Blood Urea Nitrogen 10 mg/dL (9-23)
[2025-02-11 16:07] LABS: Glucose 122 mg/dL (74-106)
[2025-02-11] MEDS ORDERED: ZOFR4T PO (16:45)
[2025-02-11] MEDS ORDERED: PANT40TA2 PO (16:45)
[2025-02-11 17:11] VITALS: TEMP 98.2; O2SAT 100
[2025-02-11] MEDS: SODIUM CHLORIDE 0.9% 1,000 ML IVB ONE (17:14)
[2025-02-11] MEDS: PROCHLORPERAZINE EDISYLATE 5 MG/ML 2ML VIAL IV ONE (17:27)
[2025-02-11] MEDS: PANTOPRAZOLE 40 MG/10 ML VIAL INJ IV ONE (17:27)
[2025-02-11 17:28] VITALS: BP 155/111; PULSE 86; RESP 16
[2025-02-11] MEDS: MORPHINE SULFATE 4 MG/ML SYR/VIAL IV ONE (17:28)
== END 2025-02-11 17:57 | disposition home or self-care (01) ==
LOC: ER 15:02
DX: R11.16 Cannabis hyperemesis syndrome (principal); Z90.49 Acquired absence of other specified parts of digestive tract; Z79.899 Other long term (current) drug therapy
CPT/HCPCS: 36415; 80048; 85025; 96361; 96374; 96375; 99284; J0780; J2270; J2470; J7030